=== PATIENT | male | born 1955 | race African-American/Black ===

== ENCOUNTER 2016-12-02 13:12 | Inpatient (IN) | payer MEDICARE, OTHER ==
[~2016-12-02] VITALS: Ht 177.8 cm; Wt 69.1 kg
[~2016-12-02 13:12] MED LIST: ACET500T68 PO; ASPI81TA50 PO; BENZ1TAB5 PO; Bisacodyl PR; CALC-425 PO; CARBAMIDE PEROXIDE 6.5%; DIPH25CA3 PO; DIVA250T PO; DIVA500T2 PO; Doxycycline Hyclate PO; FAMO-63 PO; FERR-26 PO; GABA600T2 PO; HYDROCORTISONE 1%; IBUP-1027 PO; IBUP200T77 PO; LOPE2CAP PO; MAGNESIUM HYDROXIDE; MELA3TAB2 PO; METF500T9 PO; METO25TA9 PO; METR500T PO; MULT1TAB69 PO; POLY17PO3 PO; PSEU30TA24 PO; QUET100T PO; QUET300T PO; SENN8.6T6 PO; SIMV40TA3 PO; TOLNAFTATE 1%; ZIPR80CA3 PO; [UNRECOGNIZED DRUG - CODE] PO; [UNRECOGNIZED DRUG - OTHER]; [UNRECOGNIZED DRUG - OTHER]
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
[2016-12-02] MEDS ORDERED: IV NORMAL SALINE 1000ML BAG 1,000 ML IV ONE (14:00)
[2016-12-02 14:13] LABS: BASO % 0 % (0-3); EOS % 0 % (0-3); HEMATOCRIT 33.4 % (39.0-53.0); HEMOGLOBIN 11.3 g/dL (13.0-17.5); LYMPH # 1.3 x10^3/uL (1.0-4.8); LYMPH % 14 % (24-48); MEAN CORPUSCULAR HEMOGLOBIN 31 pg (25-35); MEAN CORPUSCULAR HGB CONC 34 g/dL (31-37); MEAN CORPUSCULAR VOLUME 91 fL (79-100); MONO % 17 % (0-9); NEUT % 69 % (31-73); PLATELET COUNT 243 x10^3/uL (140-400); RED BLOOD COUNT 3.68 x10^6/uL (4.30-5.70); RED CELL DISTRIBUTION WIDTH 13.6 % (11.5-14.5); WHITE BLOOD COUNT 9.2 x10^3/uL (4.0-11.0)
[2016-12-02 14:15] LABS: CALCIUM 8.5 mg/dL (8.5-10.1); CREATININE 0.9 mg/dL (0.7-1.3); GFR 104.2; POTASSIUM 3.5 mmol/L (3.5-5.1)
[2016-12-02 14:21] LABS: ALBUMIN 2.5 g/dL (3.4-5.0); ALBUMIN/GLOBULIN RATIO 0.6 (1.0-1.7); TOTAL BILIRUBIN 0.7 mg/dL (0.2-1.0); TOTAL PROTEIN 6.8 g/dL (6.4-8.2)
[2016-12-02] MEDS ORDERED: CONTRAST GIVEN MC PRN (15:15)
[2016-12-02] MEDS ORDERED: IOHEXOL 300 MG/ML 75 ML VIAL IV ONE (15:15)
--- NOTE | 2016-12-02 16:09 | RAD ---
Indication abdominal pain. No bowel movement or urine output for 2 days. Axial images through the abdomen and pelvis were obtained. 75 cc of Omnipaque 300 was administered intravenously. Note is made of a previous examination July 09, 2015. There is a trace amount of bilateral pleural fluid. There is volume loss in both lung bases right somewhat greater than left. The volume loss at the lung bases is similar to the previous examination and may reflect atelectasis or scar. Underlying pneumonia is not entirely excluded. The liver and spleen appear unremarkable. The gallbladder is mildly distended but otherwise unremarkable. No pancreatic adrenal or renal pathology is seen. An acute finding in the abdomen is not apparent. In the pelvis a focal mass or inflammatory process is not seen. The prostate is moderately enlarged. The urinary bladder is minimally distended. Similar to the previous exam there are fluid-filled and moderately distended loops of small bowel. The degree of dilatation appears slightly less than previously. The findings are likely chronic. Aerophagia or ileus would be leading considerations. A moderate amount of stool is noted in the large bowel. IMPRESSION: Distended loops predominantly of small bowel similar to the examination July 09, 2015. Findings are likely chronic and reflective of either ileus or perhaps aerophagia. A definite acute finding in the abdomen or pelvis is not seen. Moderate enlargement of the prostate. Tiny pleural effusions. Volume loss at the lung bases likely reflects atelectasis or scar. Underlying pneumonia is not entirely excluded.
[2016-12-02 16:40] LABS: BILIRUBIN,URINE SMALL (NEG); GLUCOSE,URINE NEGATIVE (NEG); NITRITE,URINE NEGATIVE (NEG); PROTEIN,URINE 30 mg/dL (NEG-TRACE)
[2016-12-02 17:04] LABS: BACTERIA,URINE FEW /HPF (0-FEW); RBC,URINE 0 /HPF (0-2); SQUAMOUS EPITHELIAL CELL,UR OCC /LPF
[2016-12-02] MEDS ORDERED: IV DEXTROSE 5 %-0.45 % NACL 1,000 ML IV ONE (17:30)
[2016-12-02] MEDS ORDERED: LUBI8CAP4 PO (20:24)
[2016-12-02] MEDS ORDERED: ZIPR40CA2 PO (20:24)
[2016-12-02] MEDS ORDERED: QUET300T5 PO (20:24)
[2016-12-02] MEDS ORDERED: METF500T4 PO (20:24)
[2016-12-02] MEDS ORDERED: MELA3TAB2 PO (20:24)
[2016-12-02] MEDS ORDERED: GABA600T2 PO (20:24)
[2016-12-02] MEDS ORDERED: SENN8.6T99 PO (20:26)
[2016-12-02 20:30] VITALS: BP 123/68
[2016-12-02] MEDS ORDERED: NON FORMULARY ITEM (Melatonin 1 TAB) PO SCH (21:00)
[2016-12-02] MEDS: FAMOTIDINE 20 MG TABLET. PO SCH (22:55)
[2016-12-02] MEDS: GABAPENTIN 300 MG CAPSULE. PO SCH (22:55)
[2016-12-02] MEDS: DIVALPROEX DELAYED RELEASE 500 MG TABLET.DR. PO SCH (22:55)
[2016-12-02] MEDS: BENZTROPINE MESYLATE 1 MG TABLET. PO SCH (22:55)
[2016-12-02] MEDS: LUBIPROSTONE 8 MCG CAPSULE PO SCH (22:56)
[2016-12-02] MEDS: ZIPRASIDONE 20 MG CAPSULE PO SCH (22:56)
[2016-12-02] MEDS: QUEtiapine 100 MG TABLET. PO SCH (22:56)
[2016-12-02] MEDS: POLYETHYLENE GLYCOL 3350 17 GM PACKET. PO SCH (22:57)
[2016-12-02 23:00] VITALS: BP 113/63
[2016-12-02 23:47] VITALS: BP 123/68
[2016-12-03 02:49] VITALS: BP 119/65
[2016-12-03 05:12] LABS: BASO % 0 % (0-3); EOS % 0 % (0-3); HEMOGLOBIN 8.9 g/dL (13.0-17.5); LYMPH # 1.4 x10^3/uL (1.0-4.8); LYMPH % 21 % (24-48); MEAN CORPUSCULAR HEMOGLOBIN 31 pg (25-35); MEAN CORPUSCULAR HGB CONC 34 g/dL (31-37); MEAN CORPUSCULAR VOLUME 91 fL (79-100); MONO % 12 % (0-9); NEUT % 67 % (31-73); PLATELET COUNT 193 x10^3/uL (140-400); RED BLOOD COUNT 2.86 x10^6/uL (4.30-5.70); RED CELL DISTRIBUTION WIDTH 13.7 % (11.5-14.5); WHITE BLOOD COUNT 6.7 x10^3/uL (4.0-11.0)
[2016-12-03 05:33] LABS: CALCIUM 7.6 mg/dL (8.5-10.1); CREATININE 0.9 mg/dL (0.7-1.3); GFR 104.2; POTASSIUM 3.2 mmol/L (3.5-5.1)
[2016-12-03 07:00] VITALS: BP 123/74
[2016-12-03 07:06] LABS: PLT ESTIMATE ADEQUATE (ADEQUATE)
[2016-12-03] MEDS: POLYETHYLENE GLYCOL 3350 17 GM PACKET. PO SCH ×3 (08:47→21:15)
[2016-12-03] MEDS: ZIPRASIDONE 20 MG CAPSULE PO SCH ×2 (08:48→21:14)
[2016-12-03] MEDS: GABAPENTIN 300 MG CAPSULE. PO SCH ×3 (08:49→21:15)
[2016-12-03] MEDS: QUEtiapine 100 MG TABLET. PO SCH ×2 (08:49→21:14)
[2016-12-03] MEDS: DIVALPROEX DELAYED RELEASE 500 MG TABLET.DR. PO SCH ×2 (08:50→21:14)
[2016-12-03] MEDS: METOPROLOL SUCC 24HR ER 25 MG TAB.ER.24H. PO SCH (08:50)
[2016-12-03] MEDS: BENZTROPINE MESYLATE 1 MG TABLET. PO SCH ×3 (08:50→21:14)
[2016-12-03] MEDS: ASPIRIN ENTERIC COATED 81 MG TABLET.DR. PO SCH (08:50)
[2016-12-03] MEDS: SIMVASTATIN 40 MG TABLET. PO SCH (08:50)
[2016-12-03] MEDS: LUBIPROSTONE 8 MCG CAPSULE PO SCH ×2 (09:02→21:14)
[2016-12-03] MEDS ORDERED: BISACODYL 5 MG TABLET.DR. PO ONE (09:30)
[2016-12-03] MEDS ORDERED: POLYETHYLENE GLYCOL 3350 238 GM POWDER PO ONE (09:30)
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
[2016-12-03 10:48] VITALS: BP 112/66
[2016-12-03] MEDS: POTASSIUM CHLORIDE 10MEQ 100 ML IV SCH ×4 (11:32→16:14)
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
[2016-12-03 14:50] VITALS: BP 133/80
[2016-12-03] MEDS: DIVALPROEX EXTENDED RELEASE 250 MG TAB.ER.24H. PO SCH (15:03)
[2016-12-03 20:32] VITALS: BP 126/74
[2016-12-03] MEDS: SENNOSIDES 8.6 MG TABLET PO SCH (21:14)
[2016-12-03] MEDS: FAMOTIDINE 20 MG TABLET. PO SCH (21:14)
[2016-12-03 23:00] VITALS: BP 108/71
[2016-12-04 07:34] VITALS: BP 124/76
[2016-12-04] MEDS: ZIPRASIDONE 20 MG CAPSULE PO SCH ×2 (09:59→22:01)
[2016-12-04] MEDS: GABAPENTIN 300 MG CAPSULE. PO SCH ×3 (10:00→22:01)
[2016-12-04] MEDS: DIVALPROEX DELAYED RELEASE 500 MG TABLET.DR. PO SCH ×2 (10:00→22:01)
[2016-12-04] MEDS: LUBIPROSTONE 8 MCG CAPSULE PO SCH ×2 (10:01→18:01)
[2016-12-04] MEDS: QUEtiapine 100 MG TABLET. PO SCH ×2 (10:01→22:02)
[2016-12-04] MEDS: POLYETHYLENE GLYCOL 3350 17 GM PACKET. PO SCH ×3 (10:01→22:01)
[2016-12-04] MEDS: SIMVASTATIN 40 MG TABLET. PO SCH (10:01)
[2016-12-04] MEDS: BENZTROPINE MESYLATE 1 MG TABLET. PO SCH ×3 (10:01→22:01)
[2016-12-04] MEDS: ASPIRIN ENTERIC COATED 81 MG TABLET.DR. PO SCH (10:01)
[2016-12-04] MEDS: METOPROLOL SUCC 24HR ER 25 MG TAB.ER.24H. PO SCH (10:02)
[2016-12-04 11:00] VITALS: BP 138/72
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
--- NOTE | 2016-12-04 13:19 | PDOC ---
Subjective: Subjective: Asks for pancakes. Objective: Objective: Per RN - 3 watery stools. Vital Signs: Vital Signs Date Time Temp Pulse Resp B/P (MAP) Pulse Ox O2 Delivery O2 Flow Rate FiO2 12/04/16 11:00 97.2 68 22 138/72 (94) 97 Room Air 97.2 PE: GEN: NAD, up to chair LUNGS: clear HEART: RRR ABD: ?BS - quiet if any (similar to yesterday), still distended, seems non- tender ---> says "yep!" when asks if palpation of abd, arm, and leg causes pain NEURO/PSYCH: awake/alert A/P: Chronic abd distention, constipation, dilated small bowel on imaging -EGD and colonoscopy in 2007 unremarkable Cognitive impairment -- Unreliable historian. Exam unchanged, now having watery stools. Continue Miralax, will increase Amitiza dose. Try full liquids, will review dietary recs w/ Dr. Vazquez. D/w RN. ?surg consult ELVIS VAZQUEZ Dec 04, 2016 13:19
[2016-12-04 14:17] LABS: ALBUMIN 2.7 g/dL (3.4-5.0); ALBUMIN/GLOBULIN RATIO 0.6 (1.0-1.7); CALCIUM 8.4 mg/dL (8.5-10.1); GFR 92.2; POTASSIUM 3.5 mmol/L (3.5-5.1); TOTAL BILIRUBIN 0.3 mg/dL (0.2-1.0)
[2016-12-04 15:00] VITALS: BP 126/74
[2016-12-04] MEDS ORDERED: LUBIPROSTONE 8 MCG CAPSULE PO SCH (17:00)
[2016-12-04] MEDS: DIVALPROEX EXTENDED RELEASE 250 MG TAB.ER.24H. PO SCH (18:02)
[2016-12-04 19:59] VITALS: BP 112/66
[2016-12-04] MEDS: SENNOSIDES 8.6 MG TABLET PO SCH (22:01)
[2016-12-04] MEDS: FAMOTIDINE 20 MG TABLET. PO SCH (22:01)
[2016-12-04 23:35] VITALS: BP 123/74
[2016-12-05 03:59] VITALS: BP_SYST 111; BP_SYST 146; BP_DIAS 70; BP_DIAS 91
[2016-12-05 05:29] LABS: BASO % 0 % (0-3); EOS % 0 % (0-3); HEMATOCRIT 29.5 % (39.0-53.0); HEMOGLOBIN 9.8 g/dL (13.0-17.5); LYMPH # 1.5 x10^3/uL (1.0-4.8); LYMPH % 13 % (24-48); MEAN CORPUSCULAR HEMOGLOBIN 31 pg (25-35); MEAN CORPUSCULAR HGB CONC 33 g/dL (31-37); MEAN CORPUSCULAR VOLUME 93 fL (79-100); MONO % 6 % (0-9); NEUT % 81 % (31-73); PLATELET COUNT 228 x10^3/uL (140-400); RED BLOOD COUNT 3.18 x10^6/uL (4.30-5.70); RED CELL DISTRIBUTION WIDTH 13.8 % (11.5-14.5); WHITE BLOOD COUNT 11.6 x10^3/uL (4.0-11.0)
[2016-12-05 07:00] VITALS: BP 132/70
[2016-12-05] MEDS ORDERED: metFORMIN 500 MG TABLET PO SCH (08:00)
[2016-12-05] MEDS: BENZTROPINE MESYLATE 1 MG TABLET. PO SCH ×2 (08:32→13:48)
[2016-12-05] MEDS: SIMVASTATIN 40 MG TABLET. PO SCH (08:32)
[2016-12-05] MEDS: DIVALPROEX DELAYED RELEASE 500 MG TABLET.DR. PO SCH (08:32)
[2016-12-05] MEDS: ASPIRIN ENTERIC COATED 81 MG TABLET.DR. PO SCH (08:32)
[2016-12-05] MEDS: GABAPENTIN 300 MG CAPSULE. PO SCH ×2 (08:32→13:48)
[2016-12-05] MEDS: METOPROLOL SUCC 24HR ER 25 MG TAB.ER.24H. PO SCH (08:33)
[2016-12-05] MEDS: ZIPRASIDONE 20 MG CAPSULE PO SCH (08:33)
[2016-12-05] MEDS: POLYETHYLENE GLYCOL 3350 17 GM PACKET. PO SCH ×2 (08:33→13:46)
[2016-12-05] MEDS: QUEtiapine 100 MG TABLET. PO SCH (09:22)
[2016-12-05] MEDS: LUBIPROSTONE 8 MCG CAPSULE PO SCH (09:22)
[2016-12-05 11:00] VITALS: BP 124/70
[2016-12-05] MEDS ORDERED: LACTOBACILLUS ACIDOPH & BULGAR 1 TABLET. PO SCH (12:00)
[2016-12-05] MEDS ORDERED: ACID1TAB14 PO (12:00)
== END 2016-12-05 14:45 | disposition home or self-care (01) | DRG 388 ==
LOC: ER 13:12 → 5 SOUTH 17:30
PROVIDERS: ADMIT Internal Medicine; ATTEND Internal Medicine
DX: K56.7 Ileus, unspecified (principal); E43 Unspecified severe protein-calorie malnutrition; D64.9 Anemia, unspecified; E78.5 Hyperlipidemia, unspecified; K59.00 Constipation, unspecified; G31.84 Mild cognitive impairment of uncertain or unknown etiology; E11.42 Type 2 diabetes mellitus with diabetic polyneuropathy; E78.00 Pure hypercholesterolemia, unspecified; F20.9 Schizophrenia, unspecified; I10 Essential (primary) hypertension; N40.0 Benign prostatic hyperplasia without lower urinary tract symptoms; Z82.49 Family history of ischemic heart disease and other diseases of the circulatory system
CPT/HCPCS: 36415; 74177; 80048; 80053; 81001; 83690; 85007; 85027; 87086; 96360; 96361; J3480; J7030; Q9967; 99285-25

== ENCOUNTER → 2018-12-20 | Outpatient (CLI) | payer MEDICARE, MEDICAID ==
[2018-03-17 15:00] VITALS: BP 92/50
[~2018-12-20] MED LIST changes: +ACID1TAB14 PO; +CEFP100T PO; -FERR-26 PO; +FERR325T14 PO; -GABA600T2 PO; +GABA600T7 PO; +LUBI8CAP4 PO; +METF500T16 PO; +METO-239 PO; +METO25TA4 PO; -METO25TA9 PO; +PEG4000S8 PO; +POLY17PO28 PO; -POLY17PO3 PO; +QUET300T5 PO; +SENN-121 PO; +SENN-87 PO; -SENN8.6T6 PO; +SENN8.6T99 PO; +ZIPR40CA2 PO
--- NOTE | 2018-12-20 17:17 | KCIC ---
Examination: ABDOMEN SUPINE UPRIGHT History: Constipation Comparison/Correlation: 03/11/2018 CT abdomen without contrast Findings: Supine and upright views of the abdomen were obtained. Gaseous distention of colon within the left abdomen is seen. The colon and rectum otherwise the large quantity of stool within it. No suspicious abdominal calcifications. No bowel obstruction. Visualized lung bases are clear. Impression: Large quantity of stool in the colon. Electronically signed by: Austin Mitchell MD (12/20/2018 5:14 PM) [id number]
== END | disposition home or self-care (01) ==
LOC: KCIC 13:12
PROVIDERS: ATTEND Family Medicine
DX: K59.00 Constipation, unspecified (principal); K63.89 Other specified diseases of intestine
CPT/HCPCS: 74021

== ENCOUNTER 2018-12-22 20:07 | Emergency (ER) | payer MEDICARE, MEDICAID ==
[~2018-12-22] VITALS: Ht 182.9 cm; Wt 65.3 kg
[~2018-12-22 20:07] MED LIST changes: -PEG4000S8 PO; -SENN-121 PO
[2018-12-22 20:20] VITALS: BP 119/67
[2018-12-22] MEDS ORDERED: SENN-121 PO (21:01)
[2018-12-22] MEDS ORDERED: PEG4000S8 PO (21:01)
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
== END 2018-12-22 21:45 | disposition home or self-care (01) ==
LOC: ER 20:07
DX: K59.00 Constipation, unspecified (principal); E11.40 Type 2 diabetes mellitus with diabetic neuropathy, unspecified; E78.00 Pure hypercholesterolemia, unspecified; I10 Essential (primary) hypertension; F20.9 Schizophrenia, unspecified
CPT/HCPCS: 99284

== ENCOUNTER 2019-02-19 19:17 | Emergency (ER) | payer MEDICARE, MEDICAID ==
[~2019-02-19] VITALS: Ht 182.9 cm; Wt 59.0 kg
[~2019-02-19 19:17] MED LIST changes: +PEG4000S8 PO; +SENN-121 PO
[2019-02-19] MEDS ORDERED: IV NORMAL SALINE 1000ML BAG 1,000 ML IV ONE (19:30)
[2019-02-19 19:33] LABS: BASO % 0 % (0-3); EOS % 1 % (0-3); HEMOGLOBIN 11.2 g/dL (13.0-17.5); LYMPH # 1.3 x10^3/uL (1.0-4.8); LYMPH % 36 % (24-48); MEAN CORPUSCULAR HEMOGLOBIN 31 pg (25-35); MEAN CORPUSCULAR HGB CONC 34 g/dL (31-37); MEAN CORPUSCULAR VOLUME 92 fL (79-100); MONO # 0.3 x10^3/uL (0.0-1.1); MONO % 9 % (0-9); NEUT # 1.9 x10^3/uL (1.8-7.7); NEUT % 54 % (31-73); PLATELET COUNT 141 x10^3/uL (140-400); RED BLOOD COUNT 3.56 x10^6/uL (4.30-5.70); RED CELL DISTRIBUTION WIDTH 13.3 % (11.5-14.5); WHITE BLOOD COUNT 3.5 x10^3/uL (4.0-11.0)
[2019-02-19 19:42] LABS: PROTHROMBIN TIME PATIENT 14.2 SEC (11.7-14.0)
[2019-02-19 19:49] LABS: CALCIUM 8.5 mg/dL (8.5-10.1); GFR 91.6; POTASSIUM 3.6 mmol/L (3.5-5.1)
[2019-02-19 19:55] LABS: ALBUMIN 3.1 g/dL (3.4-5.0); ALBUMIN/GLOBULIN RATIO 0.9 (1.0-1.7); MAGNESIUM 1.7 mg/dL (1.8-2.4); TOTAL BILIRUBIN 0.4 mg/dL (0.2-1.0); TOTAL PROTEIN 6.6 g/dL (6.4-8.2)
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
[2019-02-19 20:26] LABS: CREATINE KINASE 44 U/L (39-308)
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
[2019-02-19 20:38] LABS: VAL ACID 49 mcg/mL (50-100)
[2019-02-19 21:13] LABS: BILIRUBIN,URINE NEGATIVE (NEG); CLARITY,URINE CLEAR; COLOR,URINE YELLOW; NITRITE,URINE NEGATIVE (NEG); PROTEIN,URINE NEGATIVE (NEG-TRACE)
--- NOTE | 2019-02-19 21:19 | RAD ---
EXAM: CHEST 2 VIEWS. HISTORY: Altered mental status. COMPARISON: 03/11/2018. FINDINGS: Frontal and lateral views of the chest are obtained. There is a mild airspace opacity in the costophrenic angles on the lateral projection, likely on the right on the frontal projection. There is no pneumothorax or pleural effusion. The heart is not enlarged. IMPRESSION: 1. Correlate for mild right lower lobe pneumonia. Electronically signed by: Benjamín Wolf MD (02/19/2019 9:16 PM) [facility]
[2019-02-19 21:20] LABS: AMPHETAMINE/METHAMPHETAMINE NEG (NEG); BACTERIA,URINE 0 /HPF (0-FEW); BARBITURATES NEG (NEG); BENZODIAZEPINES NEG (NEG); CANNABINOIDS NEG (NEG); COCAINE NEG (NEG); METHADONE NEG (NEG); OPIATES NEG (NEG); PHENCYCLIDINE NEG (NEG); SQUAMOUS EPITHELIAL CELL,UR OCC /LPF
[2019-02-19] MEDS ORDERED: MAGNESIUM CHLORIDE ER 64 MG TABLET.ER PO ONE (21:30)
[2019-02-19] MEDS ORDERED: DIVALPROEX DELAYED RELEASE 500 MG TABLET.DR. PO ONE (21:45)
[2019-02-19 22:11] VITALS: BP 116/54
--- NOTE | 2019-02-20 07:34 | EKG ---
[facility] [address] [place] [address] Test Date: 2019-02-19 Test Time: 19:44:42 Pat Name: FRIEDA HANKINS Department: Room: Gender: M Senior Engineering Associate: : 1955 Requested By: FRIEDA BLUM Order Number: [id number] Reading MD: Jarret Chavez MD Measurements Intervals [place] Rate: 100 P: 72 [place]: 162 QRS: 74 QRSD: 72 T: 66 QT: 348 QTc: 451 Interpretive Statements SINUS RHYTHM Electronically Signed On 02-20-2019 18:14:21 CDT by Jarret Chavez MD
== END 2019-02-19 21:50 | disposition home or self-care (01) ==
LOC: ER 19:17
DX: R41.82 Altered mental status, unspecified (principal); E83.42 Hypomagnesemia; R89.2 Abnormal level of other drugs, medicaments and biological substances in specimens from other organs, systems and tissues; K21.9 Gastro-esophageal reflux disease without esophagitis; E78.00 Pure hypercholesterolemia, unspecified
CPT/HCPCS: 36415; 70450; 71046; 72125; 80053; 80164; 80307; 81001; 82140; 82553; 83605; 83735; 84484; 85025; 85610; 85730; 93005; 96360; 99285; J7030

== ENCOUNTER 2019-11-23 08:56 | Inpatient (IN) | payer MEDICARE, MEDICAID ==
[~2019-11-23] VITALS: Ht 172.7 cm; Wt 133.0 kg
[~2019-11-23 08:56] MED LIST changes: +BISA-42 PO; +DIPH25CA23 PO; -DIPH25CA3 PO; +DIPH25TA24 PO; +DIVA-53 PO; +GUAI100L34 PO; +HYDR-2761 PO; +LACT20SO PO; -MELA3TAB2 PO; +MELA3TAB4 PO; +METF-658 PO; -METF500T9 PO; +SENN8.6T11 PO; +SIMV40TA18 PO; -SIMV40TA3 PO
[2019-11-23 09:59] LABS: BASO % 0 % (0-3); EOS % 0 % (0-3); HEMATOCRIT 34.3 % (39.0-53.0); HEMOGLOBIN 11.6 g/dL (13.0-17.5); LYMPH # 0.5 x10^3/uL (1.0-4.8); LYMPH % 9 % (24-48); MEAN CORPUSCULAR HEMOGLOBIN 32 pg (25-35); MEAN CORPUSCULAR HGB CONC 34 g/dL (31-37); MEAN CORPUSCULAR VOLUME 94 fL (79-100); MONO # 1.3 x10^3/uL (0.0-1.1); MONO % 23 % (0-9); NEUT # 3.9 x10^3/uL (1.8-7.7); NEUT % 68 % (31-73); PLATELET COUNT 173 x10^3/uL (140-400); RED BLOOD COUNT 3.65 x10^6/uL (4.30-5.70); RED CELL DISTRIBUTION WIDTH 13.6 % (11.5-14.5); WHITE BLOOD COUNT 5.7 x10^3/uL (4.0-11.0)
[2019-11-23] MEDS ORDERED: IV NORMAL SALINE 1000ML BAG 1,000 ML IV ONE ×2 (10:00→13:00)
[2019-11-23] MEDS ORDERED: ONDANSETRON PF 4 MG/2 ML VIAL. IVP ONE ×2 (10:00→13:30)
[2019-11-23 10:06] LABS: CALCIUM 8.3 mg/dL (8.5-10.1); CREATININE 1.3 mg/dL (0.7-1.3); GFR 67.5; POTASSIUM 3.8 mmol/L (3.5-5.1)
[2019-11-23 10:12] LABS: ALBUMIN/GLOBULIN RATIO 0.8 (1.0-1.7); TOTAL BILIRUBIN 0.3 mg/dL (0.2-1.0)
[2019-11-23 10:18] LABS: BILIRUBIN,URINE SMALL (NEG); CLARITY,URINE CLEAR; COLOR,URINE AMBER; NITRITE,URINE NEGATIVE (NEG); PH,URINE 5.5 (<5.0-8.0); PROTEIN,URINE NEGATIVE (NEG-TRACE)
[2019-11-23 10:33] LABS: BACTERIA,URINE FEW /HPF (0-FEW); RBC,URINE OCC /HPF (0-2); SQUAMOUS EPITHELIAL CELL,UR FEW /LPF; WBC,URINE OCC /HPF (0-4)
--- NOTE | 2019-11-23 10:50 | EKG ---
[facility] [address] [place] [address] Test Date: 2019-11-23 Test Time: 09:16:42 Pat Name: FRIEDA HANKINS Department: Room: Gender: M Cdl Truck Driver: : 1955 Requested By: KONSTANTIN RUBIO Order Number: [id number] Reading MD: Jarret Chavez MD Measurements Intervals [place] Rate: 117 P: 0 SD: 116 QRS: 51 QRSD: 76 T: 53 QT: 318 QTc: 448 Interpretive Statements SINUS TACHYCARDIA Electronically Signed On 11-23-2019 15:00:57 CDT by Jarret Chavez MD
--- NOTE | 2019-11-23 11:02 | PHYS DOC ---
Past Medical History Past Medical History: GERD, High Cholesterol, Seizure, Other Additional Past Medical Histor: DEVELOPMENTAL DELAY Past Surgical History: No Surgical History Smoking Status: Never Smoker Alcohol Use: None Drug Use: None Adult General Chief Complaint Chief Complaint: MULTIPLE COMPLAINTS [facility] HPI Patient is a 64 year old -[place] male half-way member with history of cognitive impairment and chronic constipation who presents with reported fever of 101.5 yesterday, nausea vomiting and diarrhea today. Patient denies abdominal pain. Last date breakfast this morning. Patient with stented lower abdomen with minimal tenderness. No fever chills or sweats. Denies dizziness lightheadedness, cough, sore throat, chest pain, shortness of breath. No urinary frequency urgency or dysuria. No leg pain or swelling. No other acute symptoms or complaints. No prior abdominal surgeries. History obtained from the patient and is limited due to intellectual disability. [] Review of Systems Review of Systems Review of symptoms as per HPI. All other review of symptoms are negative. All other systems were reviewed and found to be within normal limits, except as documented in this note. Current Medications Current Medications Current Medications Medications (Trade) Dose Ordered Sig/Ric Start Time Stop Time Status Last Admin Dose Admin Iohexol (Omnipaque 300 Mg/ml) 75 ml 1X ONCE 11/23/19 11:30 11/23/19 11:31 DC 11/23/19 11:30 75 ML Ondansetron HCl (Zofran) 8 mg 1X ONCE 11/23/19 10:00 11/23/19 10:01 DC 11/23/19 10:04 8 MG Sodium Chloride 1,000 ml @ 1,000 mls/hr 1X ONCE 11/23/19 13:00 11/23/19 13:59 11/23/19 13:20 1,000 MLS/HR Allergies Allergies Allergies Coded Allergies Type Severity Reaction Last Updated Verified No Known Drug Allergies 03/27/14 No Physical Exam Physical Exam Constitutional: Well developed, well nourished, no acute distress, non-toxic appearance. [] HENT: Normocephalic, atraumatic, bilateral external ears normal, oropharynx moist, no oral exudates, nose normal. [] Eyes: PERRLA, EOMI, conjunctiva normal, no discharge. [] Neck: Normal range of motion, no tenderness, supple, no stridor. [] Cardiovascular:Heart rate regular rhythm, no murmur [] Lungs & Thorax: Bilateral breath sounds clear to auscultation [] Abdomen: Bowel sounds normal, soft, distended, minimal tenderness.. [] Skin: Warm, dry, no erythema, no rash. [] Back: No tenderness, no CVA tenderness. [] Extremities: No tenderness, no cyanosis, no clubbing, ROM intact, no edema. [] Neurologic: Alert and oriented X person, normal motor function, normal sensory function, no focal deficits noted. [] Psychologic: Affect normal, judgement normal, mood normal. [] Current Patient Data Vital Signs Vital Signs Date Time Temp Pulse Resp B/P (MAP) Pulse Ox O2 Delivery O2 Flow Rate FiO2 11/23/19 11:37 114 16 134/82 (99) 97 Nasal Cannula 1.0 11/23/19 09:00 97.6 97.6 Lab Values Laboratory Tests Test 11/23/19 09:40 11/23/19 10:05 White Blood Count 5.7 x10^3/uL (4.0-11.0) Red Blood Count 3.65 x10^6/uL (4.30-5.70) L Hemoglobin 11.6 g/dL (13.0-17.5) L Hematocrit 34.3 % (39.0-53.0) L Mean Corpuscular Volume 94 fL (79-100) Mean Corpuscular Hemoglobin 32 pg (25-35) Mean Corpuscular Hemoglobin Concent 34 g/dL (31-37) Red Cell Distribution Width 13.6 % (11.5-14.5) Platelet Count 173 x10^3/uL (140-400) Neutrophils (%) (Auto) 68 % (31-73) Lymphocytes (%) (Auto) 9 % (24-48) L Monocytes (%) (Auto) 23 % (0-9) H Eosinophils (%) (Auto) 0 % (0-3) Basophils (%) (Auto) 0 % (0-3) Neutrophils # (Auto) 3.9 x10^3/uL (1.8-7.7) Lymphocytes # (Auto) 0.5 x10^3/uL (1.0-4.8) L Monocytes # (Auto) 1.3 x10^3/uL (0.0-1.1) H Eosinophils # (Auto) 0.0 x10^3/uL (0.0-0.7) Basophils # (Auto) 0.0 x10^3/uL (0.0-0.2) Segmented Neutrophils % 42 % (35-66) Band Neutrophils % 29 % (0-9) H Lymphocytes % 21 % (24-48) L Monocytes % 8 % (0-10) Platelet Estimate Adequate (ADEQUATE) Sodium Level 145 mmol/L (136-145) Potassium Level 3.8 mmol/L (3.5-5.1) Chloride Level 105 mmol/L (98-107) Carbon Dioxide Level 30 mmol/L (21-32) Anion Gap 10 (6-14) Blood Urea Nitrogen 27 mg/dL (8-26) H Creatinine 1.3 mg/dL (0.7-1.3) Estimated GFR (Cockcroft-Gault) 67.5 BUN/Creatinine Ratio 21 (6-20) H Glucose Level 124 mg/dL (70-99) H Calcium Level 8.3 mg/dL (8.5-10.1) L Total Bilirubin 0.3 mg/dL (0.2-1.0) Aspartate Amino Transferase (AST) 11 U/L (15-37) L Alanine Aminotransferase (ALT) 14 U/L (16-63) L Alkaline Phosphatase 76 U/L (46-116) Total Protein 7.0 g/dL (6.4-8.2) Albumin 3.0 g/dL (3.4-5.0) L Albumin/Globulin Ratio 0.8 (1.0-1.7) L Lipase 23 U/L (73-393) L Urine Collection Type Unknown Urine Color Gricelda Urine Clarity Clear Urine pH 5.5 (<5.0-8.0) Urine Specific [place] >=1.030 (1.000-1.030) Urine Protein Negative mg/dL (NEG-TRACE) Urine Glucose (UA) Negative mg/dL (NEG) Urine Ketones (Stick) Trace mg/dL (NEG) Urine Blood Trace (NEG) Urine Nitrite Negative (NEG) Urine Bilirubin Small (NEG) Urine Urobilinogen Dipstick 1.0 mg/dL (0.2 mg/dL) Urine Leukocyte Esterase Negative (NEG) Urine RBC Occ /HPF (0-2) Urine WBC Occ /HPF (0-4) Urine Squamous Epithelial Cells Few /LPF Urine Bacteria Few /HPF (0-FEW) Urine Mucus Marked /LPF Laboratory Tests 11/23/19 09:40 Laboratory Tests 11/23/19 09:40 EKG EKG [] Radiology/Procedures Radiology/Procedures [CT abdomen pelvis: Ileus versus distal bowel obstruction, pleural effusion versus infiltrate, sclerotic pelvic lesion per radiology report] Course & Med Decision Making Course & Med Decision Making Pertinent Labs and Imaging studies reviewed. (See chart for details) [Nondescript abdominal exam with chronic findings on CT versus possible ileus. Pain nausea medication given in the ED. Basic labs performed and reassuring. Will admit to the hospitalist service with GI consult.] Dragon Disclaimer Dragon Disclaimer This electronic medical record was generated, in whole or in part, using a voice recognition dictation system. Departure Departure Impression: Primary Impression: Ileus Additional Impression: Nausea & vomiting Disposition: ADMITTED INPATIENT Condition: STABLE Referrals: FAHAD TINAJERO MD (PCP) Problem Qualifiers KONSTANTIN RUBIO DO November 23, 2019 11:02
[2019-11-23 11:30] LABS: % BANDS 29 % (0-9); % LYMPHS 21 % (24-48); % MONOS 8 % (0-10); % SEGS 42 % (35-66); PLT ESTIMATE ADEQUATE (ADEQUATE)
[2019-11-23] MEDS ORDERED: IOHEXOL 300 MG/ML 100ML VIAL. IV ONE (11:30)
--- NOTE | 2019-11-23 12:34 | RAD ---
Exam: CT abdomen/pelvis with intravenous contrast Indication: Abdominal pain and vomiting, concern for bowel obstruction. Comparison: CT abdomen and pelvis 08/24/2019 and 03/11/2018 Technique: Helical CT imaging performed of the abdomen and pelvis after the intravenous administration of 75 mL Omnipaque 300 intravenous contrast. Sagittal and coronal reformats were obtained. One or more of the following individualized dose reduction techniques were utilized for this examination: 1. Automated exposure control 2. Adjustment of the mA and/or kV according to patient size 3. Use of iterative reconstruction technique. Findings: Lower chest: Increased tiny right pleural effusion and mild bibasilar opacities in the lung bases. The heart is normal in size. Liver: The liver is normal in size. No focal liver lesion. Hepatic, portal, superior mesenteric, and splenic veins are patent. Gallbladder/Biliary Tree: Unchanged mild distention of the gallbladder. No biliary duct dilatation. Pancreas: Unremarkable. Spleen: Normal. Adrenal Glands: Normal visualized. Kidneys/Ureters/Bladder: Kidneys are normal in size and enhance symmetrically. There is a 2 mm calculus in the inferior left renal pole. 6 mm hypodensity in the inferior right renal pole is too small to characterize. Probable left extrarenal pelvis. No hydronephrosis. Ureters are nondilated. Bladder is mildly distended without wall thickening. Reproductive Organs: Prostate gland is enlarged measuring 4.0 x 4.5 cm. Stomach, small bowel, and colon: The stomach is distended and filled with fluid and gas. There is marked, diffuse dilation of gas and fluid-filled small bowel and colon. Dilated small bowel measures up to 5.8 cm in diameter, increased from prior exam. Dilated colon measures up to 5.1 cm. There are some foci of nondependent gas along the bowel wall in the right hemicolon. This could be intraluminal gas, however pneumatosis is not entirely excluded. Evaluation is limited due to degree of dilated bowel. There is stool in the colon, greater on the left. Vasculature: Abdominal aorta and inferior vena cava are normal. Lymph Nodes: No obvious lymphadenopathy. Peritoneum and retroperitoneum: No definite free fluid or free air. Bones: Unchanged 2.1 x 1.0 ill-defined sclerotic lesion in the posterior left iliac bone. This is been stable since at least 03/11/2018 Miscellaneous: No abdominal wall or inguinal hernia. Impression: 1. Marked, diffuse dilation of small bowel and colon. This is similar to but increased compared to the prior exam with small bowel now measuring up to 5.8 cm in diameter. Findings may be due to distal bowel obstruction or ileus. In the right hemicolon, there are are some foci of nondependent gas along the bowel wall which could be intraluminal, however pneumatosis is not entirely excluded. Evaluation is limited due to the degree of bowel dilation. 2. Increased tiny right pleural effusion and mild bibasilar opacities, which could be atelectasis or infiltrates/aspiration. 3. Left nephrolithiasis. 4. Unchanged ill-defined 2.1 cm sclerotic lesion in the posterior left iliac bone, stable since 2018. Electronically signed by: Blanca Nava MD (11/23/2019 12:31 PM) [id number]
[2019-11-23] MEDS ORDERED: MORPHINE SULFATE 4 MG/ML VIAL. IV ONE (13:30)
[2019-11-23] MEDS ORDERED: ONDANSETRON PF 4 MG/2 ML VIAL. IV PRN (13:45)
--- NOTE | 2019-11-23 13:59 | HP ---
ADMIT DATE: 11/23/2019 CHIEF COMPLAINT: Nausea, vomiting, abdominal pain, abdominal distention, fever of 101.5. HISTORY OF PRESENT ILLNESS: The patient is a pleasant middle-aged -[place] male who lives in a long term. He is well known to my service. We had him in the hospital a few times in the past year. Basically, he presents with abdominal distention, some nausea, vomiting. He has had a low-grade fever. We did some imaging. He has massive air fluid levels in the gut. This is somewhat chronic for him, but the CAT scan is pretty impressive, he has got a lot of air within the bowel. It appears he could be obstructed but perhaps an ileus. He also has possible pneumonia on the bases of the lung that was incidentally picked up on the CAT scan. He is also hypoxic. I discussed the case with ER physician. We are going to admit the patient and consult GI and Pulmonary Medicine. PAST MEDICAL HISTORY: Cognitively challenged, GERD, chronic abdominal distension, hyperlipidemia, seizures, developmental delay. ALLERGIES: None. FAMILY HISTORY: Hypertension. SOCIAL HISTORY: Lives in a long term. Does not drink, smoke or take drugs. MEDICATIONS: Reviewed, please refer to the MRAD. REVIEW OF SYSTEMS: Unable to obtain. PHYSICAL EXAMINATION: VITALS: Within normal limits and are stable. GENERAL: No apparent distress. Alert and oriented. HEENT: Normal cephalic atraumatic, external auditory canals are patent EYES: Extraocular muscles are intact, pupils are equally round and reactive to light and accommodation MUSCULOSKELETAL: Well developed, well nourished, good range of motion ENDOCRINE: No thyromegaly was palpated LYMPHATICS: No cervical chain or axillary nodes were noted HEMATOPOIETIC: No bruising NECK: Supple, no JVD, no thyromegaly was noted. LUNGS: Clear to auscultation in all lung aparicio without rhonchi or wheezing. HEART: RRR, S1, S2 present. Peripheral pulses intact, no obvious murmurs were noted. ABDOMEN: He has diffuse abdominal distention. EXTREMITIES: Without any cyanosis, clubbing, or edema. Pedal pulses intact, Homans sign is negative. NEUROLOGIC: He is obtunded, weak. He does not talk much, maybe one word sentences. PSYCHIATRIC: Normal affect, normal mood. Stable. SKIN: No ulcerations or rashes, good skin turgor, no jaundice. VASCULAR: Good capillary refill, neurovascular bundle appears to be intact. ASSESSMENT AND PLAN: Ileus/small bowel obstruction and incidental finding of pneumonia, hypoxia. The patient will be admitted. We will consult GI. Consult Pulmonary. Home meds. Deep venous thrombosis prophylaxis. IV fluids, trend labs. Full code. PROGNOSIS: Guarded. TERA BOSTON DO DR: ADOLPH/amol JOB#: [id number] / [id number]
[2019-11-23] MEDS ORDERED: METHYLNALTREXONE 12 MG/0.6 ML VIAL. SQ ONE (14:15)
[2019-11-23] MEDS ORDERED: BISACODYL 10 MG SUPP.RECT. PR PRN (14:15)
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
[2019-11-23 15:00] VITALS: BP_SYST 130; BP_SYST 132; BP_DIAS 60; BP_DIAS 74
[2019-11-23] MEDS ORDERED: LUBI24CA7 PO (15:04)
[2019-11-23] MEDS: IV RINGERS,LACTATED 1000ML 1,000 ML IV SCH (15:40)
--- NOTE | 2019-11-23 16:33 | RAD ---
EXAM: Supine AP view of the abdomen DATE: 11/23/2019 3:54 PM INDICATION: Reason: check ng tube placement / Spl. Instructions: / History: COMPARISON: 11/23/2019 FINDINGS/ IMPRESSION: 1. NG tube tip terminates at the distal esophagus and can be advanced approximately 8 cm. 2. Diffusely dilated loops of small and large bowel are better assessed on recent CT. Findings of NG tube positioning discussed with patient's nurse at 11/23/2019 4:29 PM. FOR INTERNAL CODING PURPOSES RESULT CODE: Electronically signed by: Freddie Crenshaw MD (11/23/2019 4:30 PM) [id number]
--- NOTE | 2019-11-23 17:51 | RAD ---
KUB INDICATION: Reason: verify ng tube placement / Spl. Instructions: / History: . COMPARISON: 11/23/2019. FINDINGS: Enteric tube terminates in the stomach. Stable diffusely dilated bowel, as seen on recent CT. No free air. Limited view of the lower chest demonstrates no acute abnormality. No acute osseous abnormality. IMPRESSION: Stable diffusely dilated bowel. Enteric tube terminates in the stomach. Electronically signed by: Adarsh Duncan MD (11/23/2019 5:49 PM) [id number]
[2019-11-23 19:57] VITALS: BP 126/69
[2019-11-23] MEDS: PANTOPRAZOLE IV PUSH 40 MG VIAL. IVP SCH (21:14)
[2019-11-23 23:02] VITALS: BP 118/66
[2019-11-24] MEDS: IV RINGERS,LACTATED 1000ML 1,000 ML IV SCH ×3 (01:16→20:30)
[2019-11-24 03:26] VITALS: BP 125/64
[2019-11-24 04:30] LABS: BASO % 0 % (0-3); EOS % 1 % (0-3); HEMATOCRIT 30.9 % (39.0-53.0); HEMOGLOBIN 10.6 g/dL (13.0-17.5); LYMPH # 0.8 x10^3/uL (1.0-4.8); LYMPH % 9 % (24-48); MEAN CORPUSCULAR HEMOGLOBIN 32 pg (25-35); MEAN CORPUSCULAR HGB CONC 34 g/dL (31-37); MEAN CORPUSCULAR VOLUME 93 fL (79-100); MONO # 1.8 x10^3/uL (0.0-1.1); MONO % 21 % (0-9); NEUT % 70 % (31-73); PLATELET COUNT 163 x10^3/uL (140-400); RED BLOOD COUNT 3.31 x10^6/uL (4.30-5.70); RED CELL DISTRIBUTION WIDTH 13.6 % (11.5-14.5); WHITE BLOOD COUNT 8.6 x10^3/uL (4.0-11.0)
[2019-11-24 05:10] LABS: ALBUMIN 2.5 g/dL (3.4-5.0); ALBUMIN/GLOBULIN RATIO 0.7 (1.0-1.7); CALCIUM 7.9 mg/dL (8.5-10.1); CREATININE 1.1 mg/dL (0.7-1.3); GFR 81.8; POTASSIUM 3.8 mmol/L (3.5-5.1); TOTAL BILIRUBIN 0.4 mg/dL (0.2-1.0)
[2019-11-24 07:20] VITALS: BP 104/55
[2019-11-24] MEDS: PANTOPRAZOLE IV PUSH 40 MG VIAL. IVP SCH ×2 (07:58→21:38)
[2019-11-24] MEDS ORDERED: ONDANSETRON PF 4 MG/2 ML VIAL. IV PRN (08:15)
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
[2019-11-24] MEDS ORDERED: DEXTROSE 50% 25 GM / 50ML DISP.SYRIN. IV PRN (08:30)
[2019-11-24] MEDS ORDERED: ZIPRASIDONE IM 20 MG VIAL. IM ONE (09:00)
[2019-11-24] MEDS: VALPROIC ACID (AS SODIUM SALT) 500 MG in IV DEXTROSE 5% 50 ML IV SCH ×2 (09:08→21:38)
--- NOTE | 2019-11-24 10:05 | PDOC ---
Subjective: Subjective: I asked about any pain - "nope!" I asked if he stooled - "nope!" Objective: Objective: D/w nurse - stooled before got to floor from ER yesterday, barely any NG output. S/p Relistor x 1 though can't see he got suppository. Vital Signs: Vital Signs Date Time Temp Pulse Resp B/P (MAP) Pulse Ox O2 Delivery O2 Flow Rate FiO2 11/24/19 07:43 Room Air 11/24/19 07:20 98.0 103 16 104/55 (71) 95 98.0 11/23/19 11:55 1.0 Labs: Laboratory Tests Test 11/23/19 10:05 11/24/19 04:20 Urine Collection Type Unknown Urine Color Gricelda Urine Clarity Clear Urine pH 5.5 Urine Specific [place] >=1.030 Urine Protein Negative mg/dL Urine Glucose (UA) Negative mg/dL Urine Ketones (Stick) Trace mg/dL Urine Blood Trace Urine Nitrite Negative Urine Bilirubin Small Urine Urobilinogen Dipstick 1.0 mg/dL Urine Leukocyte Esterase Negative Urine RBC Occ /HPF Urine WBC Occ /HPF Urine Squamous Epithelial Cells Few /LPF Urine Bacteria Few /HPF Urine Mucus Marked /LPF White Blood Count 8.6 x10^3/uL Red Blood Count 3.31 x10^6/uL Hemoglobin 10.6 g/dL Hematocrit 30.9 % Mean Corpuscular Volume 93 fL Mean Corpuscular Hemoglobin 32 pg Mean Corpuscular Hemoglobin Concent 34 g/dL Red Cell Distribution Width 13.6 % Platelet Count 163 x10^3/uL Neutrophils (%) (Auto) 70 % Lymphocytes (%) (Auto) 9 % Monocytes (%) (Auto) 21 % Eosinophils (%) (Auto) 1 % Basophils (%) (Auto) 0 % Neutrophils # (Auto) 6.0 x10^3/uL Lymphocytes # (Auto) 0.8 x10^3/uL Monocytes # (Auto) 1.8 x10^3/uL Eosinophils # (Auto) 0.0 x10^3/uL Basophils # (Auto) 0.0 x10^3/uL Sodium Level 143 mmol/L Potassium Level 3.8 mmol/L Chloride Level 104 mmol/L Carbon Dioxide Level 30 mmol/L Anion Gap 9 Blood Urea Nitrogen 19 mg/dL Creatinine 1.1 mg/dL Estimated GFR (Cockcroft-Gault) 81.8 BUN/Creatinine Ratio 17 Glucose Level 86 mg/dL Calcium Level 7.9 mg/dL Total Bilirubin 0.4 mg/dL Aspartate Amino Transf (AST/SGOT) 11 U/L Alanine Aminotransferase (ALT/SGPT) 15 U/L Alkaline Phosphatase 62 U/L Total Protein 6.0 g/dL Albumin 2.5 g/dL Albumin/Globulin Ratio 0.7 Imaging: KUB 11/22 IMPRESSION: Stable diffusely dilated bowel. Enteric tube terminates in the stomach. PE: GEN: NAD LUNGS: CTAB anteriorly HEART: mildly tachycardic ABD: trace bilious output from NG, softer today w/ a few tinkling bowel sounds, does not seem tender NEURO/PSYCH: awake A/P: Recurrent ileus/pseudo-obstruction Chronic anemia Cognitive impairment -- As above, not much from NGT and stooled yesterday. Abdomen softer but bowel sounds not impressive. Will d/w Dr. Alan - clamp NG and observe? Hemodynamically unstable?: No Is patient in severe pain?: No Is NPO status required?: Yes ELVIS VAZQUEZ November 24, 2019 10:05
--- NOTE | 2019-11-24 10:33 | CONS ---
DATE OF CONSULTATION: PULMONARY CONSULTATION ATTENDING PHYSICIAN: Migue Martinez DO REASON FOR CONSULTATION: Abnormal CT chest, possible pneumonia. HISTORY OF PRESENT ILLNESS: The patient is a 64-year-old male who lives in a assisted. He was admitted with increasing abdominal distention and some nausea and vomiting. He had low-grade fever. He denied any cough, denied any shortness of breath, no chest pains. He underwent CT abdomen and pelvis. I have reviewed the lower sections of the lungs on CT abdomen. The patient has likely compressive atelectasis from distended abdomen. He had markedly increased air-fluid levels consistent with obstruction. I have been asked to see him for further evaluation. He has no significant tobacco history. PAST MEDICAL HISTORY: Significant for GERD, cognitively challenged, history of chronic abdominal distention, hyperlipidemia, seizures, and developmental delay. PAST SURGICAL HISTORY: No recent surgeries. ALLERGIES: None. FAMILY HISTORY: Hypertension. SOCIAL HISTORY: Lives in a assisted. No history of tobacco or alcohol use. MEDICATIONS: Reviewed as listed in the MRAD. REVIEW OF SYSTEMS: Twelve-point system obtained. Pertinent positives discussed in my present illness, otherwise noncontributory. All systems that were negative were reviewed as well. PHYSICAL EXAMINATION: VITAL SIGNS: Reviewed. T-max of 99. Pulse ox 95% on room air, blood pressure is stable. HEENT: Sclerae nonicteric. NECK: Supple. LUNGS: Clear. CARDIOVASCULAR: With regular rate and rhythm. ABDOMEN: Soft, distended and decreased bowel sounds. EXTREMITIES: With no pitting edema. LABORATORY DATA: Reviewed. White cell count 8.6, hemoglobin 10.6 and platelets are 163. BUN and creatinine 19 and 1.1. Albumin is 2.5. IMPRESSION: 1. Abnormal CT abdomen and pelvis with likely compressive atelectasis from distended abdomen. Clinically, lacks symptoms of pneumonia. 2. Markedly distended loops of bowels with air-fluid levels, suggesting ileus/small bowel obstruction. 3. Follow GI recommendation. 4. No significant tobacco history. RECOMMENDATIONS: 1. From a pulmonary standpoint, I do not see a need for antibiotics. Clinically, lacks symptoms of pneumonia. 2. Incentive spirometry. 3. NG for decompression of the bowel. 4. Follow GI recommendations. 5. Surgery consult if indicated. 6. Discussed with RN and the patient. We will follow along with you. BRODY ROSARIO MD DR: Kathy JOB#: [id number] / [id number]
[2019-11-24 10:51] VITALS: BP 112/57
[2019-11-24] MEDS: INSULIN LISPRO 300 UNITS/3 ML VIAL. SQ SCH ×3 (11:17→21:00)
--- NOTE | 2019-11-24 11:40 | NUR ---
SS following for discharge planning. SS reviewed pt chart and discussed with pt RN. Pt is from [facility], . Per RN, pt has NG tube and is currently on room air. SS will continue to follow for discharge planning.
[2019-11-24 15:06] VITALS: BP 131/74
[2019-11-24 19:30] VITALS: BP 129/67
[2019-11-24 22:49] VITALS: BP 115/70
[2019-11-25 02:15] VITALS: BP 131/78
[2019-11-25] MEDS: IV RINGERS,LACTATED 1000ML 1,000 ML IV SCH ×2 (06:02→16:07)
[2019-11-25] MEDS: INSULIN LISPRO 300 UNITS/3 ML VIAL. SQ SCH ×4 (07:30→21:00)
[2019-11-25 07:59] VITALS: BP 111/63
[2019-11-25] MEDS ORDERED: LACTULOSE 20 GM/30 ML SOLUTION. PO PRN (08:30)
[2019-11-25] MEDS ORDERED: guaiFENesin ORAL 200 MG/10 ML LIQUID. PO PRN (08:30)
[2019-11-25] MEDS ORDERED: ACETAMINOPHEN 500 MG TABLET PO PRN (08:30)
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
[2019-11-25] MEDS: PANTOPRAZOLE IV PUSH 40 MG VIAL. IVP SCH ×2 (08:56→21:44)
[2019-11-25] MEDS ORDERED: BISACODYL 10 MG SUPP.RECT. PR PRN (09:00)
[2019-11-25] MEDS ORDERED: PSYLLIUM HUSK (SUGAR FREE) 1 PKT PACKET PO PRN (09:00)
[2019-11-25] MEDS: DIVALPROEX DELAYED RELEASE 500 MG TABLET.DR. PO SCH ×3 (10:34→21:44)
[2019-11-25] MEDS: GABAPENTIN 300 MG CAPSULE. PO SCH ×3 (10:34→21:45)
[2019-11-25] MEDS: QUEtiapine 100 MG TABLET. PO SCH ×2 (10:34→21:45)
[2019-11-25] MEDS: LUBIPROSTONE 24 MCG CAPSULE PO SCH ×2 (10:34→21:46)
[2019-11-25] MEDS: POLYETHYLENE GLYCOL 3350 17 GM PACKET. PO SCH ×3 (10:34→21:00)
[2019-11-25] MEDS: ZIPRASIDONE 20 MG CAPSULE PO SCH ×2 (10:34→21:45)
[2019-11-25] MEDS: MULTIVITAMIN with MINERAL TABLET. PO SCH (10:35)
[2019-11-25] MEDS: ASPIRIN ENTERIC COATED 81 MG TABLET.DR. PO SCH (10:35)
[2019-11-25] MEDS: SIMVASTATIN 40 MG TABLET. PO SCH (10:35)
--- NOTE | 2019-11-25 11:16 | PDOC ---
PULMONARY PROGRESS NOTES Subjective has sob, chest tightness, better w duo neb, has cough, on 02 Vitals Vital Signs Date Time Temp Pulse Resp B/P (MAP) Pulse Ox O2 Delivery O2 Flow Rate FiO2 11/25/19 08:20 Room Air 11/25/19 07:59 98.9 98 18 111/63 (79) 99 98.9 ROS: No Nausea General: Alert, No acute distress HEENT: Other (nc at perrl nose throat clear) Lungs: Clear, Other Cardiovascular: S1, S2 Abdomen: Soft, Non-tender Neuro Exam: Alert Extremities: No Edema Skin: Warm Labs Laboratory Tests Test 11/24/19 04:20 11/24/19 11:08 11/24/19 20:32 11/25/19 07:31 White Blood Count 8.6 x10^3/uL (4.0-11.0) Red Blood Count 3.31 x10^6/uL (4.30-5.70) Hemoglobin 10.6 g/dL (13.0-17.5) Hematocrit 30.9 % (39.0-53.0) Mean Corpuscular Volume 93 fL (79-100) Mean Corpuscular Hemoglobin 32 pg (25-35) Mean Corpuscular Hemoglobin Concent 34 g/dL (31-37) Red Cell Distribution Width 13.6 % (11.5-14.5) Platelet Count 163 x10^3/uL (140-400) Neutrophils (%) (Auto) 70 % (31-73) Lymphocytes (%) (Auto) 9 % (24-48) Monocytes (%) (Auto) 21 % (0-9) Eosinophils (%) (Auto) 1 % (0-3) Basophils (%) (Auto) 0 % (0-3) Neutrophils # (Auto) 6.0 x10^3/uL (1.8-7.7) Lymphocytes # (Auto) 0.8 x10^3/uL (1.0-4.8) Monocytes # (Auto) 1.8 x10^3/uL (0.0-1.1) Eosinophils # (Auto) 0.0 x10^3/uL (0.0-0.7) Basophils # (Auto) 0.0 x10^3/uL (0.0-0.2) Sodium Level 143 mmol/L (136-145) Potassium Level 3.8 mmol/L (3.5-5.1) Chloride Level 104 mmol/L (98-107) Carbon Dioxide Level 30 mmol/L (21-32) Anion Gap 9 (6-14) Blood Urea Nitrogen 19 mg/dL (8-26) Creatinine 1.1 mg/dL (0.7-1.3) Estimated GFR (Cockcroft-Gault) 81.8 BUN/Creatinine Ratio 17 (6-20) Glucose Level 86 mg/dL (70-99) Calcium Level 7.9 mg/dL (8.5-10.1) Total Bilirubin 0.4 mg/dL (0.2-1.0) Aspartate Amino Transf (AST/SGOT) 11 U/L (15-37) Alanine Aminotransferase (ALT/SGPT) 15 U/L (16-63) Alkaline Phosphatase 62 U/L (46-116) Total Protein 6.0 g/dL (6.4-8.2) Albumin 2.5 g/dL (3.4-5.0) Albumin/Globulin Ratio 0.7 (1.0-1.7) Glucose (Fingerstick) 71 mg/dL (70-99) 89 mg/dL (70-99) 92 mg/dL (70-99) Laboratory Tests Test 11/24/19 20:32 11/25/19 07:31 Glucose (Fingerstick) 89 mg/dL (70-99) 92 mg/dL (70-99) Medications Active Scripts Medications Dose Route/Sig Max Daily Dose Days Date Category Amitiza (Lubiprostone) 24 Mcg Capsule 24 Mcg PO BID 11/23/19 Reported Tussin (Guaifenesin) 100 Mg/5 Ml Liquid 200 Mg PO PRN Q4HRS PRN 08/28/19 Reported Lactulose 20 Gm/30 Ml Solution 20 Gm PO PRN BID PRN 08/28/19 Reported Ibuprofen 400 Mg Tablet 400 Mg PO PRN Q6HRS PRN 08/28/19 Reported Diphenhydramine Hcl 25 Mg Tablet 25 Mg PO PRN DAILY PRN 08/28/19 Reported Acetaminophen 500 Mg Tablet 1,000 Mg PO PRN Q6HRS PRN 08/28/19 Reported Geodon (Ziprasidone Hcl) 40 Mg Capsule 80 Mg PO QHS 08/28/19 Reported Senna Laxative (Sennosides) 8.6 Mg Tablet 1 Tab PO QHS 30 08/28/19 Reported Divalproex Sodium 500 Mg Tablet.dr 250 Mg PO DAILY16 08/28/19 Reported Geodon (Ziprasidone Hcl) 40 Mg Capsule 40 Mg PO DAILYWBKFT 12/02/16 Reported Seroquel (Quetiapine Fumarate) 300 Mg Tablet 600 Mg PO HS 12/02/16 Reported Melatonin 3 Mg Tablet 1 Tab PO QHS 12/02/16 Reported Gabapentin 600 Mg Tablet 600 Mg PO TID 12/02/16 Reported Polyethylene Glycol 3350 17 Gm Powd.pack 17 Gm PO TID 07/19/15 Rx [Bisacodyl] 10 MG Supp.rect 10 Mg AL PRN DAILY PRN 02/12/15 Rx Pepcid (Famotidine) 20 Mg Tablet 20 Mg PO QHS 02/12/15 Rx Tab-A-Rachele (Multivitamin) 1 Each Tablet 1 Each PO DAILY 03/27/14 Reported Simvastatin 40 Mg Tablet 40 Mg PO DAILY 03/27/14 Reported Quetiapine Fumarate 100 Mg Tablet 100 Mg PO DAILY 03/27/14 Reported Natural Fiber Laxative Powder (Psyllium Husk/Aspartame) 283 Gm Powder 283 Gm PO PRN DAILY PRN 03/27/14 Reported Depakote (Divalproex Sodium) 500 Mg Tablet.dr 1 Tab PO BID 03/27/14 Reported Benztropine Mesylate 1 Mg Tablet 0.5 Mg PO QHS 03/27/14 Reported Aspir-Low (Aspirin) 81 Mg Tablet.dr 81 Mg PO DAILY 03/27/14 Reported Impression . IMPRESSION: 1. Abnormal CT abdomen and pelvis with likely compressive atelectasis from distended abdomen. Clinically, lacks symptoms of pneumonia. 2. Markedly distended loops of bowels with air-fluid levels, suggesting ileus/small bowel obstruction. 3. Follow GI recommendation. 4. No significant tobacco history. Plan . RECOMMENDATIONS: 1. From a pulmonary standpoint, I do not see a need for antibiotics. Clinically, lacks symptoms of pneumonia. 2. Incentive spirometry. 3. BD, 02 titration. 4. Follow GI recommendations. 5. Surgery consult if indicated. Discussed with RN and the patient. We will follow along with you. MORENITA PINK MD November 25, 2019 11:16
[2019-11-25 11:59] VITALS: BP 132/77
--- NOTE | 2019-11-25 14:09 | PDOC ---
Subjective: Subjective: NGT out per patient request. Objective: Vital Signs: Vital Signs Date Time Temp Pulse Resp B/P (MAP) Pulse Ox O2 Delivery O2 Flow Rate FiO2 11/25/19 11:59 99.1 93 18 132/77 (95) 93 Room Air 99.1 Labs: Laboratory Tests Test 11/24/19 20:32 11/25/19 07:31 11/25/19 12:53 Glucose (Fingerstick) 89 mg/dL (70-99) 92 mg/dL (70-99) 88 mg/dL (70-99) Physical Exam: Physical Exam: Asleep Abd soft Assessment & Plan: Assessment : A/P: Recurrent ileus/pseudo-obstruction Chronic anemia Cognitive impairment Plan: resolving Monitor sx with NGT out Hemodynamically unstable?: No Is patient in severe pain?: No Is NPO status required?: Yes MEENA TADEO MD November 25, 2019 14:09
[2019-11-25 15:59] VITALS: BP 140/70
[2019-11-25 19:00] VITALS: BP 142/76
--- NOTE | 2019-11-25 20:38 | NUR ---
Patients glucose was 66, RN administered 25mg of dextrose and glucose was rechecked at 2044 glucose went up to 85. Addendum: 11/26/19 at 0705 by EMIR GONZALES RN Patients glucose was 66, RN administered 25ml of dextrose, glucose rechecked at 2044 glucose went up to 85.
[2019-11-25] MEDS ORDERED: FAMOTIDINE 20 MG TABLET. PO SCH (21:00)
[2019-11-25] MEDS ORDERED: NON FORMULARY ITEM (Melatonin 1 TAB) PO SCH (21:00)
[2019-11-25] MEDS: SENNOSIDES 8.6 MG TABLET PO SCH (21:00)
[2019-11-25] MEDS: BENZTROPINE MESYLATE 1 MG TABLET. PO SCH (21:46)
[2019-11-25 23:00] VITALS: BP 145/79
[2019-11-26] MEDS: IV RINGERS,LACTATED 1000ML 1,000 ML IV SCH ×3 (02:30→17:18)
[2019-11-26 03:00] VITALS: BP 118/67
[2019-11-26 07:00] VITALS: BP 147/84
[2019-11-26] MEDS: INSULIN LISPRO 300 UNITS/3 ML VIAL. SQ SCH ×4 (07:30→21:00)
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
[2019-11-26] MEDS: POLYETHYLENE GLYCOL 3350 17 GM PACKET. PO SCH ×3 (08:13→21:00)
[2019-11-26] MEDS: ASPIRIN ENTERIC COATED 81 MG TABLET.DR. PO SCH (08:20)
[2019-11-26] MEDS: MULTIVITAMIN with MINERAL TABLET. PO SCH (08:20)
[2019-11-26] MEDS: SIMVASTATIN 40 MG TABLET. PO SCH (08:21)
[2019-11-26] MEDS: QUEtiapine 100 MG TABLET. PO SCH ×2 (08:21→21:36)
[2019-11-26] MEDS: GABAPENTIN 300 MG CAPSULE. PO SCH ×3 (08:21→21:35)
[2019-11-26] MEDS: ZIPRASIDONE 20 MG CAPSULE PO SCH ×2 (08:21→21:35)
[2019-11-26] MEDS: DIVALPROEX DELAYED RELEASE 500 MG TABLET.DR. PO SCH ×3 (08:21→21:36)
[2019-11-26] MEDS: LUBIPROSTONE 24 MCG CAPSULE PO SCH ×2 (08:21→21:35)
[2019-11-26] MEDS: PANTOPRAZOLE IV PUSH 40 MG VIAL. IVP SCH ×2 (08:22→21:37)
[2019-11-26 11:00] VITALS: BP 152/78
--- NOTE | 2019-11-26 12:45 | PDOC ---
PULMONARY PROGRESS NOTES Subjective on ra. answers yes to all Qs, appears comfortable Vitals Vital Signs Date Time Temp Pulse Resp B/P (MAP) Pulse Ox O2 Delivery O2 Flow Rate FiO2 11/26/19 11:00 97.9 68 18 152/78 (102) 96 Room Air 97.9 ROS: No Nausea General: Alert, No acute distress HEENT: Other (nc at perrl nose throat clear) Lungs: Clear Cardiovascular: S1, S2 Abdomen: Soft, Non-tender Neuro Exam: Alert Extremities: No Edema Skin: Warm Labs Laboratory Tests Test 11/24/19 20:32 11/25/19 07:31 11/25/19 12:53 11/25/19 19:56 Glucose (Fingerstick) 89 mg/dL (70-99) 92 mg/dL (70-99) 88 mg/dL (70-99) 66 mg/dL (70-99) Test 11/25/19 20:35 11/25/19 20:48 11/26/19 03:37 11/26/19 07:50 Glucose (Fingerstick) 65 mg/dL (70-99) 85 mg/dL (70-99) 86 mg/dL (70-99) 79 mg/dL (70-99) Test 11/26/19 11:49 Glucose (Fingerstick) 89 mg/dL (70-99) Laboratory Tests Test 11/25/19 12:53 11/25/19 19:56 11/25/19 20:35 11/25/19 20:48 Glucose (Fingerstick) 88 mg/dL (70-99) 66 mg/dL (70-99) 65 mg/dL (70-99) 85 mg/dL (70-99) Test 11/26/19 03:37 11/26/19 07:50 11/26/19 11:49 Glucose (Fingerstick) 86 mg/dL (70-99) 79 mg/dL (70-99) 89 mg/dL (70-99) Medications Active Scripts Medications Dose Route/Sig Max Daily Dose Days Date Category Amitiza (Lubiprostone) 24 Mcg Capsule 24 Mcg PO BID 11/23/19 Reported Tussin (Guaifenesin) 100 Mg/5 Ml Liquid 200 Mg PO PRN Q4HRS PRN 08/28/19 Reported Lactulose 20 Gm/30 Ml Solution 20 Gm PO PRN BID PRN 08/28/19 Reported Ibuprofen 400 Mg Tablet 400 Mg PO PRN Q6HRS PRN 08/28/19 Reported Diphenhydramine Hcl 25 Mg Tablet 25 Mg PO PRN DAILY PRN 08/28/19 Reported Acetaminophen 500 Mg Tablet 1,000 Mg PO PRN Q6HRS PRN 08/28/19 Reported Geodon (Ziprasidone Hcl) 40 Mg Capsule 80 Mg PO QHS 08/28/19 Reported Senna Laxative (Sennosides) 8.6 Mg Tablet 1 Tab PO QHS 30 08/28/19 Reported Divalproex Sodium 500 Mg Tablet.dr 250 Mg PO DAILY16 08/28/19 Reported Geodon (Ziprasidone Hcl) 40 Mg Capsule 40 Mg PO DAILYWBKFT 12/02/16 Reported Seroquel (Quetiapine Fumarate) 300 Mg Tablet 600 Mg PO HS 12/02/16 Reported Melatonin 3 Mg Tablet 1 Tab PO QHS 12/02/16 Reported Gabapentin 600 Mg Tablet 600 Mg PO TID 12/02/16 Reported Polyethylene Glycol 3350 17 Gm Powd.pack 17 Gm PO TID 07/19/15 Rx [Bisacodyl] 10 MG Supp.rect 10 Mg [place] PRN DAILY PRN 02/12/15 Rx Pepcid (Famotidine) 20 Mg Tablet 20 Mg PO QHS 02/12/15 Rx Tab-A-Rachele (Multivitamin) 1 Each Tablet 1 Each PO DAILY 03/27/14 Reported Simvastatin 40 Mg Tablet 40 Mg PO DAILY 03/27/14 Reported Quetiapine Fumarate 100 Mg Tablet 100 Mg PO DAILY 03/27/14 Reported Natural Fiber Laxative Powder (Psyllium Husk/Aspartame) 283 Gm Powder 283 Gm PO PRN DAILY PRN 03/27/14 Reported Depakote (Divalproex Sodium) 500 Mg Tablet. 1 Tab PO BID 03/27/14 Reported Benztropine Mesylate 1 Mg Tablet 0.5 Mg PO QHS 03/27/14 Reported Aspir-Low (Aspirin) 81 Mg Tablet.dr 81 Mg PO DAILY 03/27/14 Reported Impression . IMPRESSION: 1. Abnormal CT abdomen and pelvis with likely compressive atelectasis from distended abdomen. Clinically, lacks symptoms of pneumonia. 2. Markedly distended loops of bowels with air-fluid levels, suggesting ileus/small bowel obstruction. 3. Follow GI recommendation. 4. No significant tobacco history. Plan . RECOMMENDATIONS: 1. From a pulmonary standpoint, I do not see a need for antibiotics. Clinically, lacks symptoms of pneumonia. 2. Incentive spirometry. 3. BD, 02 titration. 4. Follow GI recommendations. 5. Surgery consult if indicated. Discussed with RN and the patient. We will follow along with you. MORENITA PINK MD November 26, 2019 12:45
[2019-11-26 15:00] VITALS: BP 148/86
[2019-11-26 19:00] VITALS: BP 150/74
[2019-11-26] MEDS: BENZTROPINE MESYLATE 1 MG TABLET. PO SCH (21:35)
[2019-11-26] MEDS: SENNOSIDES 8.6 MG TABLET PO SCH (21:36)
[2019-11-26 23:00] VITALS: BP 108/61
[2019-11-27 03:00] VITALS: BP 141/79
[2019-11-27] MEDS: IV RINGERS,LACTATED 1000ML 1,000 ML IV SCH ×2 (04:45→16:24)
[2019-11-27 07:00] VITALS: BP 106/53
[2019-11-27] MEDS: INSULIN LISPRO 300 UNITS/3 ML VIAL. SQ SCH ×4 (07:30→21:00)
[2019-11-27] MEDS: LUBIPROSTONE 24 MCG CAPSULE PO SCH ×2 (08:54→21:19)
[2019-11-27] MEDS: POLYETHYLENE GLYCOL 3350 17 GM PACKET. PO SCH ×3 (08:55→21:20)
[2019-11-27] MEDS: MULTIVITAMIN with MINERAL TABLET. PO SCH (08:55)
[2019-11-27] MEDS: ZIPRASIDONE 20 MG CAPSULE PO SCH ×2 (08:55→21:19)
[2019-11-27] MEDS: DIVALPROEX DELAYED RELEASE 500 MG TABLET.DR. PO SCH ×3 (08:55→21:19)
[2019-11-27] MEDS: QUEtiapine 100 MG TABLET. PO SCH ×2 (08:55→21:19)
[2019-11-27] MEDS: SIMVASTATIN 40 MG TABLET. PO SCH (08:55)
[2019-11-27] MEDS: ASPIRIN ENTERIC COATED 81 MG TABLET.DR. PO SCH (08:55)
[2019-11-27] MEDS: PANTOPRAZOLE IV PUSH 40 MG VIAL. IVP SCH (08:55)
[2019-11-27] MEDS: GABAPENTIN 300 MG CAPSULE. PO SCH ×3 (08:55→21:20)
--- NOTE | 2019-11-27 10:16 | PDOC ---
Subjective: Subjective: I asked if he was eating okay - "yep." I asked if he has stooled - did not respond. I asked if he had pain - "yep." Objective: Objective: Reviewed chart - on ADA diet, COVID-19 pending, stool charted 11/25. Getting Amitiza, Miralax, Senna. Vital Signs: Vital Signs Date Time Temp Pulse Resp B/P (MAP) Pulse Ox O2 Delivery O2 Flow Rate FiO2 11/27/19 07:20 Room Air 11/27/19 07:00 97.8 95 18 106/53 (70) 96 97.8 Labs: Laboratory Tests Test 11/26/19 11:49 11/26/19 16:57 11/26/19 20:46 11/27/19 07:23 Glucose (Fingerstick) 89 mg/dL 103 mg/dL 97 mg/dL 109 mg/dL PE: GEN: NAD, laying on left side H LUNGS: CTAB HEART: RRR ABD: soft, non-distended, fairly quiet NEURO/PSYCH: A & O 3 A/P: Recurrent ileus/pseudo-obstruction Cognitive impairment -- Stable GI-martinez - apparently eating and stooling. Continue constipation treatment long-term. Hemodynamically unstable?: No Is patient in severe pain?: No Is NPO status required?: No ELVIS VAZQUEZ Nov 27, 2019 10:16
[2019-11-27 10:44] VITALS: BP 108/58
[2019-11-27] MEDS: MORPHINE SULFATE 2 MG/ML VIAL. IV PRN ×2 (10:46→16:29)
--- NOTE | 2019-11-27 13:41 | NUR ---
SW following. Discussed with RN, pt is from [facility], [place] (ph: [phone]). Pt currently on room air, COVID-[address] negative[address] JAMIL [address] Dr. Keen to determine discharge planning. JAMIL will continue to follow.
--- NOTE | 2019-11-27 13:51 | PDOC ---
PULMONARY PROGRESS NOTES Subjective on ra. answers yes to all Qs, appears comfortable Vitals Vital Signs Date Time Temp Pulse Resp B/P (MAP) Pulse Ox O2 Delivery O2 Flow Rate FiO2 11/27/19 10:46 Room Air 11/27/19 10:44 97.9 90 18 108/58 (75) 96 97.9 ROS: No Nausea General: Alert, No acute distress HEENT: Other (nc at perrl nose throat clear) Lungs: Clear Cardiovascular: S1, S2 Abdomen: Soft, Non-tender Neuro Exam: Alert Extremities: No Edema Skin: Warm Labs Laboratory Tests Test 11/25/19 19:56 11/25/19 20:35 11/25/19 20:48 11/26/19 03:37 Glucose (Fingerstick) 66 mg/dL (70-99) 65 mg/dL (70-99) 85 mg/dL (70-99) 86 mg/dL (70-99) Test 11/26/19 07:50 11/26/19 11:49 11/26/19 15:00 11/26/19 16:57 Glucose (Fingerstick) 79 mg/dL (70-99) 89 mg/dL (70-99) 103 mg/dL (70-99) Coronavirus (COVID-19)(PCR) Not detected (NOT DETECT.) Test 11/26/19 20:46 11/27/19 07:23 11/27/19 11:06 Glucose (Fingerstick) 97 mg/dL (70-99) 109 mg/dL (70-99) 124 mg/dL (70-99) Laboratory Tests Test 11/26/19 15:00 11/26/19 16:57 11/26/19 20:46 11/27/19 07:23 Coronavirus (COVID-19)(PCR) Not detected (NOT DETECT.) Glucose (Fingerstick) 103 mg/dL (70-99) 97 mg/dL (70-99) 109 mg/dL (70-99) Test 11/27/19 11:06 Glucose (Fingerstick) 124 mg/dL (70-99) Medications Active Scripts Medications Dose Route/Sig Max Daily Dose Days Date Category Amitiza (Lubiprostone) 24 Mcg Capsule 24 Mcg PO BID 11/23/19 Reported Tussin (Guaifenesin) 100 Mg/5 Ml Liquid 200 Mg PO PRN Q4HRS PRN 08/28/19 Reported Lactulose 20 Gm/30 Ml Solution 20 Gm PO PRN BID PRN 08/28/19 Reported Ibuprofen 400 Mg Tablet 400 Mg PO PRN Q6HRS PRN 08/28/19 Reported Diphenhydramine Hcl 25 Mg Tablet 25 Mg PO PRN DAILY PRN 08/28/19 Reported Acetaminophen 500 Mg Tablet 1,000 Mg PO PRN Q6HRS PRN 08/28/19 Reported Geodon (Ziprasidone Hcl) 40 Mg Capsule 80 Mg PO QHS 08/28/19 Reported Senna Laxative (Sennosides) 8.6 Mg Tablet 1 Tab PO QHS 30 08/28/19 Reported Divalproex Sodium 500 Mg Tablet.dr 250 Mg PO DAILY16 08/28/19 Reported Geodon (Ziprasidone Hcl) 40 Mg Capsule 40 Mg PO DAILYWBKFT 12/02/16 Reported Seroquel (Quetiapine Fumarate) 300 Mg Tablet 600 Mg PO HS 12/02/16 Reported Melatonin 3 Mg Tablet 1 Tab PO QHS 12/02/16 Reported Gabapentin 600 Mg Tablet 600 Mg PO TID 12/02/16 Reported Polyethylene Glycol 3350 17 Gm Powd.pack 17 Gm PO TID 07/19/15 Rx [Bisacodyl] 10 MG Supp.rect 10 Mg [place] PRN DAILY PRN 02/12/15 Rx Pepcid (Famotidine) 20 Mg Tablet 20 Mg PO QHS 02/12/15 Rx Tab-A-Rachele (Multivitamin) 1 Each Tablet 1 Each PO DAILY 03/27/14 Reported Simvastatin 40 Mg Tablet 40 Mg PO DAILY 03/27/14 Reported Quetiapine Fumarate 100 Mg Tablet 100 Mg PO DAILY 03/27/14 Reported Natural Fiber Laxative Powder (Psyllium Husk/Aspartame) 283 Gm Powder 283 Gm PO PRN DAILY PRN 03/27/14 Reported Depakote (Divalproex Sodium) 500 Mg Tablet.dr 1 Tab PO BID 03/27/14 Reported Benztropine Mesylate 1 Mg Tablet 0.5 Mg PO QHS 03/27/14 Reported Aspir-Low (Aspirin) 81 Mg Tablet.dr 81 Mg PO DAILY 03/27/14 Reported Impression . IMPRESSION: 1. Abnormal CT abdomen and pelvis with likely compressive atelectasis from distended abdomen. Clinically, lacks symptoms of pneumonia. 2. Markedly distended loops of bowels with air-fluid levels, suggesting ileus/small bowel obstruction. 3. Follow GI recommendation. 4. No significant tobacco history. Plan . RECOMMENDATIONS: 1. From a pulmonary standpoint, I do not see a need for antibiotics. Clinically, lacks symptoms of pneumonia. 2. Incentive spirometry. 3. BD, 02 titration. 4. Follow GI recommendations. Discussed with RN and the patient. We will follow along with you. BRODY ROSARIO MD Nov 27, 2019 13:51
[2019-11-27 15:00] VITALS: BP 112/60
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
[2019-11-27 19:00] VITALS: BP 97/55
[2019-11-27] MEDS: SENNOSIDES 8.6 MG TABLET PO SCH (21:20)
[2019-11-27] MEDS: BENZTROPINE MESYLATE 1 MG TABLET. PO SCH (21:21)
[2019-11-27 23:00] VITALS: BP 89/45
[2019-11-28 03:00] VITALS: BP 94/58
[2019-11-28] MEDS: IV RINGERS,LACTATED 1000ML 1,000 ML IV SCH (06:10)
[2019-11-28 07:00] VITALS: BP 84/47
[2019-11-28] MEDS: INSULIN LISPRO 300 UNITS/3 ML VIAL. SQ SCH (07:30)
[2019-11-28 09:00] LABS: BASO % 0 % (0-3); EOS % 0 % (0-3); HEMATOCRIT 29.5 % (39.0-53.0); HEMOGLOBIN 10.2 g/dL (13.0-17.5); LYMPH # 0.8 x10^3/uL (1.0-4.8); LYMPH % 10 % (24-48); MEAN CORPUSCULAR HEMOGLOBIN 33 pg (25-35); MEAN CORPUSCULAR HGB CONC 35 g/dL (31-37); MEAN CORPUSCULAR VOLUME 94 fL (79-100); MONO # 1.2 x10^3/uL (0.0-1.1); MONO % 15 % (0-9); NEUT % 74 % (31-73); PLATELET COUNT 168 x10^3/uL (140-400); RED BLOOD COUNT 3.15 x10^6/uL (4.30-5.70); RED CELL DISTRIBUTION WIDTH 13.2 % (11.5-14.5); WHITE BLOOD COUNT 8.1 x10^3/uL (4.0-11.0)
[2019-11-28] MEDS: ZIPRASIDONE 20 MG CAPSULE PO SCH (09:00)
[2019-11-28] MEDS: ASPIRIN ENTERIC COATED 81 MG TABLET.DR. PO SCH (09:00)
[2019-11-28] MEDS: MULTIVITAMIN with MINERAL TABLET. PO SCH (09:00)
[2019-11-28] MEDS: LUBIPROSTONE 24 MCG CAPSULE PO SCH (09:00)
[2019-11-28] MEDS: GABAPENTIN 300 MG CAPSULE. PO SCH (09:01)
[2019-11-28] MEDS: POLYETHYLENE GLYCOL 3350 17 GM PACKET. PO SCH (09:01)
[2019-11-28] MEDS: QUEtiapine 100 MG TABLET. PO SCH (09:01)
[2019-11-28] MEDS: DIVALPROEX DELAYED RELEASE 500 MG TABLET.DR. PO SCH (09:01)
[2019-11-28] MEDS: SIMVASTATIN 40 MG TABLET. PO SCH (09:01)
[2019-11-28 09:14] LABS: CALCIUM 7.6 mg/dL (8.5-10.1); CREATININE 0.8 mg/dL (0.7-1.3); GFR 118.1; POTASSIUM 3.7 mmol/L (3.5-5.1)
--- NOTE | 2019-11-28 10:08 | NUR ---
JAMIL following. Discussed with RN and Dr. Keen. Pt discharging back to [facility] today. JAMIL contacted Ramandeep at [facility] ([phone]) to advise of discharge. Ramandeep will pick pt up at 1045. RN notified.
--- NOTE | 2019-11-28 10:17 | PDOC ---
Subjective: Subjective: Says eating okay and stooling. Objective: Objective: D/w Dr. Keen - probable DC today. Vital Signs: Vital Signs Date Time Temp Pulse Resp B/P (MAP) Pulse Ox O2 Delivery O2 Flow Rate FiO2 11/28/19 07:05 Room Air 11/28/19 07:00 98.0 107 17 84/47 (59) 95 98.0 Labs: Laboratory Tests Test 11/27/19 11:06 11/27/19 21:31 11/28/19 06:59 11/28/19 08:35 Glucose (Fingerstick) 124 mg/dL 84 mg/dL 80 mg/dL White Blood Count 8.1 x10^3/uL Red Blood Count 3.15 x10^6/uL Hemoglobin 10.2 g/dL Hematocrit 29.5 % Mean Corpuscular Volume 94 fL Mean Corpuscular Hemoglobin 33 pg Mean Corpuscular Hemoglobin Concent 35 g/dL Red Cell Distribution Width 13.2 % Platelet Count 168 x10^3/uL Neutrophils (%) (Auto) 74 % Lymphocytes (%) (Auto) 10 % Monocytes (%) (Auto) 15 % Eosinophils (%) (Auto) 0 % Basophils (%) (Auto) 0 % Neutrophils # (Auto) 6.0 x10^3/uL Lymphocytes # (Auto) 0.8 x10^3/uL Monocytes # (Auto) 1.2 x10^3/uL Eosinophils # (Auto) 0.0 x10^3/uL Basophils # (Auto) 0.0 x10^3/uL Sodium Level 141 mmol/L Potassium Level 3.7 mmol/L Chloride Level 103 mmol/L Carbon Dioxide Level 30 mmol/L Anion Gap 8 Blood Urea Nitrogen 13 mg/dL Creatinine 0.8 mg/dL Estimated GFR (Cockcroft-Gault) 118.1 Glucose Level 85 mg/dL Calcium Level 7.6 mg/dL PE: GEN: NAD - breakfast plate empty LUNGS: CTAB HEART: RRR ABD: round/stable chronic distention, non-tender NEURO/PSYCH: A & O 3 A/P: Recurrent ileus/pseudo-obstruction -- Eating and stooling. DC per primary - ?repeat Relistor prior - will review w/ Dr. Alan. Justicifation of Admission Dx: Justifications for Admission: Justification of Admission Dx: Yes ELVIS VAZQUEZ Nov 28, 2019 10:17
[2019-11-28 10:48] VITALS: BP 114/65
--- NOTE | 2019-11-28 10:53 | NUR ---
Pt. discharged to home, pt's caregiver Ramandeep verbalized understanding of discharge instructions
[2019-11-28] MEDS ORDERED: METHYLNALTREXONE 12 MG/0.6 ML VIAL. SQ ONE (12:00)
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
== END 2019-11-28 11:00 | disposition home or self-care (01) | DRG 388 ==
LOC: ER 08:56 → 4 NORTH 13:00
PROVIDERS: ADMIT Internal Medicine; ATTEND Internal Medicine
PROC: 0D9670Z Drainage of Stomach with Drainage Device, Via Natural or Artificial Opening (ICD-10-PCS; principal; 2019-11-23)
DX: K56.699 Other intestinal obstruction unspecified as to partial versus complete obstruction (principal); E43 Unspecified severe protein-calorie malnutrition; J18.9 Pneumonia, unspecified organism; J98.11 Atelectasis; Z68.41 Body mass index [BMI] 40.0-44.9, adult; D64.9 Anemia, unspecified; E11.9 Type 2 diabetes mellitus without complications; E78.00 Pure hypercholesterolemia, unspecified; E78.5 Hyperlipidemia, unspecified; K21.9 Gastro-esophageal reflux disease without esophagitis; F20.9 Schizophrenia, unspecified; F79 Unspecified intellectual disabilities; I10 Essential (primary) hypertension; Z20.828 Contact with and (suspected) exposure to other viral communicable diseases; K56.41 Fecal impaction; N20.0 Calculus of kidney; R09.02 Hypoxemia; Z82.49 Family history of ischemic heart disease and other diseases of the circulatory system; Z79.899 Other long term (current) drug therapy
CPT/HCPCS: 36415; 74018; 74177; 80048; 80053; 81001; 82962; 83690; 85007; 85025; 93005; 96361; 96374; C9113; J1815; J2212; J2270; J2405; J3486; J3490; J7030; J7060; J7120; Q9967; 99285-25; G0378; U0003-CS

== ENCOUNTER 2019-11-29 15:39 | Emergency (ER) | payer MEDICARE, MEDICAID ==
[~2019-11-29] VITALS: Ht 167.6 cm; Wt 60.4 kg
[~2019-11-29 15:39] MED LIST changes: +LUBI24CA7 PO
[2019-11-29] MEDS ORDERED: IV NORMAL SALINE 1000ML BAG 1,000 ML IV ONE (16:00)
[2019-11-29 16:11] LABS: BASO # 0.1 x10^3/uL (0.0-0.2); BASO % 0 % (0-3); EOS % 0 % (0-3); HEMATOCRIT 34.2 % (39.0-53.0); HEMOGLOBIN 11.5 g/dL (13.0-17.5); LYMPH # 0.8 x10^3/uL (1.0-4.8); LYMPH % 6 % (24-48); MEAN CORPUSCULAR HEMOGLOBIN 32 pg (25-35); MEAN CORPUSCULAR HGB CONC 34 g/dL (31-37); MEAN CORPUSCULAR VOLUME 94 fL (79-100); MONO % 8 % (0-9); NEUT % 86 % (31-73); PLATELET COUNT 244 x10^3/uL (140-400); RED BLOOD COUNT 3.64 x10^6/uL (4.30-5.70); RED CELL DISTRIBUTION WIDTH 13.5 % (11.5-14.5); WHITE BLOOD COUNT 12.8 x10^3/uL (4.0-11.0)
[2019-11-29 16:19] LABS: CALCIUM 8.2 mg/dL (8.5-10.1); CREATININE 0.9 mg/dL (0.7-1.3); GFR 103.1; POTASSIUM 3.8 mmol/L (3.5-5.1)
[2019-11-29 16:25] LABS: ALBUMIN 2.5 g/dL (3.4-5.0); ALBUMIN/GLOBULIN RATIO 0.6 (1.0-1.7); MAGNESIUM 1.6 mg/dL (1.8-2.4); TOTAL BILIRUBIN 0.4 mg/dL (0.2-1.0); TOTAL PROTEIN 6.6 g/dL (6.4-8.2)
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
[2019-11-29] MEDS ORDERED: IOHEXOL 300 MG/ML 100ML VIAL. IV ONE (16:45)
[2019-11-29] MEDS ORDERED: CONTRAST GIVEN. MC PRN (16:45)
[2019-11-29 16:52] LABS: BILIRUBIN,URINE MODERATE (NEG); CLARITY,URINE CLEAR; COLOR,URINE AMBER; NITRITE,URINE NEGATIVE (NEG); PROTEIN,URINE 30 mg/dL (NEG-TRACE)
[2019-11-29 16:57] LABS: SQUAMOUS EPITHELIAL CELL,UR FEW /LPF
[2019-11-29 16:58] LABS: % BANDS 9 % (0-9); % LYMPHS 7 % (24-48); % MONOS 9 % (0-10); % SEGS 75 % (35-66); PLT ESTIMATE ADEQUATE (ADEQUATE)
[2019-11-29 16:59] LABS: BACTERIA,URINE FEW /HPF (0-FEW); RBC,URINE >40 /HPF (0-2)
[2019-11-29 17:00] LABS: TOXIC GRANULATION SLIGHT; TOXIC VACUOLATION SLIGHT
--- NOTE | 2019-11-29 17:20 | RAD ---
Exam: CT of abdomen and pelvis with contrast INDICATION: Abdominal pain TECHNIQUE: Sequential axial images through the abdomen and pelvis obtained following the administration of 75 mL of Omni 300 IV contrast. Sagittal and coronal reformatted images were reconstructed from the axial data and reviewed. Comparisons: 11/23/2019 FINDINGS: Heart size is normal. No pericardial effusion. Small bilateral pleural effusions. Linear bandlike opacity at the lung bases likely atelectasis. Liver, spleen, pancreas, and adrenals are unremarkable. Gallbladder is distended. Kidneys demonstrate symmetric enhancement. No perinephric inflammation or hydronephrosis. No renal or ureteral calculi are identified. Bladder is decompressed not well evaluated. Prostate is not enlarged. Colon is distended. Dilatation of small bowel noted within the abdomen. No free intra-abdominal air or fluid. No obstruction. Abdominal aorta has a normal course and caliber. Abdominal vasculature is patent. No enlarged abdominal lymph nodes are identified. No suspicious osseous lesions or acute fractures. IMPRESSION: 1. Gallbladder is distended. Correlate with symptomatology to determine the need for further evaluation. 2. Persistent diffuse dilatation of large and small bowel, may relate to ileus. Exposure: One or more of the following in the visualized dose reduction techniques were utilized for this examination: 1. Automated exposure control 2. Adjustment of the MA and/or KV according to patient size 3. Use of iterative of reconstructive technique Electronically signed by: Adam Cabral MD (11/29/2019 5:17 PM) [id number]
[2019-11-29 18:15] VITALS: BP 145/81
== END 2019-11-29 18:30 | disposition home or self-care (01) ==
LOC: ER 15:39
DX: K56.7 Ileus, unspecified (principal); K21.9 Gastro-esophageal reflux disease without esophagitis; E78.00 Pure hypercholesterolemia, unspecified; E11.40 Type 2 diabetes mellitus with diabetic neuropathy, unspecified
CPT/HCPCS: 36415; 74177; 80053; 81001; 83690; 83735; 85007; 85025; 87086; 99285; J7030; Q9967

== ENCOUNTER 2020-02-21 21:15 | Inpatient (IN) | payer MEDICARE, MEDICAID ==
[~2020-02-21] VITALS: Ht 172.7 cm; Wt 68.2 kg
[~2020-02-21 21:15] MED LIST changes: -MULT1TAB69 PO; +MULT1TAB70 PO
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
[2020-02-21] MEDS ORDERED: IV NORMAL SALINE 1000ML BAG 1,000 ML IV SCH (21:30)
[2020-02-21 22:19] LABS: BASO % 0 % (0-3); EOS # 0.2 x10^3/uL (0.0-0.7); EOS % 3 % (0-3); HEMOGLOBIN 10.7 g/dL (13.0-17.5); LYMPH # 1.3 x10^3/uL (1.0-4.8); LYMPH % 21 % (24-48); MEAN CORPUSCULAR HEMOGLOBIN 30 pg (25-35); MEAN CORPUSCULAR HGB CONC 34 g/dL (31-37); MEAN CORPUSCULAR VOLUME 91 fL (79-100); MONO # 1.3 x10^3/uL (0.0-1.1); MONO % 22 % (0-9); NEUT # 3.4 x10^3/uL (1.8-7.7); NEUT % 54 % (31-73); PLATELET COUNT 193 x10^3/uL (140-400); RED BLOOD COUNT 3.53 x10^6/uL (4.30-5.70); RED CELL DISTRIBUTION WIDTH 14.2 % (11.5-14.5); WHITE BLOOD COUNT 6.2 x10^3/uL (4.0-11.0)
[2020-02-21 22:28] LABS: PROTHROMBIN TIME PATIENT 13.5 SEC (11.7-14.0)
--- NOTE | 2020-02-21 22:41 | RAD ---
Exam: Chest one view INDICATION: Short of air, recent fever TECHNIQUE: Frontal view of the chest Comparisons: 11/19/2018 FINDINGS: The cardiomediastinal silhouette and pulmonary vessels are within normal limits. The lung and pleural spaces are clear. IMPRESSION: No acute cardiopulmonary process. Electronically signed by: Adam Cabral MD (02/21/2020 10:38 PM) [id number]
[2020-02-21 22:46] LABS: % BANDS 3 % (0-9); % EOS 2 % (0-5); % LYMPHS 29 % (24-48); % MONOS 20 % (0-10); % SEGS 46 % (35-66); PLT ESTIMATE ADEQUATE (ADEQUATE)
[2020-02-21 22:48] LABS: BILIRUBIN,URINE NEGATIVE (NEG); CLARITY,URINE CLEAR; COLOR,URINE YELLOW; NITRITE,URINE NEGATIVE (NEG); PH,URINE 6.5 (<5.0-8.0); PROTEIN,URINE NEGATIVE (NEG-TRACE)
[2020-02-21 22:49] LABS: POLYCHROMASIA SLIGHT
[2020-02-21 22:51] LABS: TOXIC GRANULATION SLIGHT
[2020-02-21 23:05] LABS: RBC,URINE 20-40 /HPF (0-2)
[2020-02-21 23:06] LABS: BACTERIA,URINE 0 /HPF (0-FEW); WBC,URINE RARE /HPF (0-4)
[2020-02-21 23:07] LABS: CALCIUM 7.9 mg/dL (8.5-10.1); GFR 91.3; POTASSIUM 4.4 mmol/L (3.5-5.1)
[2020-02-21 23:12] LABS: ALBUMIN 2.5 g/dL (3.4-5.0); ALBUMIN/GLOBULIN RATIO 0.6 (1.0-1.7); TOTAL BILIRUBIN 0.3 mg/dL (0.2-1.0); TOTAL PROTEIN 6.5 g/dL (6.4-8.2)
[2020-02-22] MEDS ORDERED: CONTRAST GIVEN. MC PRN (01:15)
[2020-02-22] MEDS ORDERED: IOHEXOL 300 MG/ML 100ML VIAL. IV ONE (01:30)
--- NOTE | 2020-02-22 02:18 | RAD ---
Study: CT abdomen/pelvis with intravenous contrast Indication: Abdominal pain. Diarrhea. Comparison: 11/29/2019 Technique: Helical CT imaging performed of the abdomen and pelvis after the intravenous administration of 75 cc Omnipaque 300 contrast. Sagittal and coronal reformats were obtained. One or more of the following individualized dose reduction techniques were utilized for this examination: 1. Automated exposure control 2. Adjustment of the mA and/or kV according to patient size 3. Use of iterative reconstruction technique. Findings: Small right larger than left pleural effusions are redemonstrated. The left effusion is similar to slightly smaller. The right effusion has mildly increased. Overlying volume loss. Groundglass haziness involving the right more so than left lung bases is overall similar. Less pronounced distention of the distal esophagus. Small hiatal hernia repair calcific coronary artery disease. No newly seen hepatic parenchymal abnormality. Less distended gallbladder from the prior though the wall is mildly thickened. No newly seen abnormality of the pancreas. The spleen is within the broad range of normal for size. Unchanged adrenal glands. Unchanged cystic focus at the inferior pole the right kidney. No complex cyst or mass on either side. Punctate intrarenal stone on the left. Ectatic left renal pelvis has not significant changed. No collecting system dilatation on the right. Generalized thickening of the urinary bladder wall and the setting of prostatomegaly. Generalized colonic distention with stool and gas the degree of which has decreased. The appendix is difficult to visualize. A few small bowel loops are mildly distended but luminal caliber has significantly decreased from the prior. The stomach is not well evaluated due to underdistention and the lack of contrast. Unchanged aorta and iliofemoral system with scattered atheromatous plaque. No venous occlusion is appreciated. No newly seen lymphadenopathy. Trace amount of fluid within the deep pelvis but less from the comparison. No free air. Unchanged region of sclerosis within the posterior left iliac bone, image 68 series 3. No newly seen osseous abnormality. Impression: 1. Stool and gaseous distention of the colon but less so from 11/29/2019. The patient is mildly constipated. No findings of mechanical obstruction or perforation. 2. Less distended gallbladder from the prior but the wall is slightly thickened. This is favored on account of third spacing as opposed to cholecystitis though recommend correlation for right upper quadrant tenderness. 3. Redemonstrated punctate intrarenal stone on the left and relatively pronounced prostatomegaly. 4. Small right larger than left pleural effusions. The right pleural effusion is slightly larger but the left effusion is smaller. 5. Additional chronic observations as above. Electronically signed by: LLOYD WU MD (02/22/2020 2:16 AM) [id number]
[2020-02-22] MEDS ORDERED: ONDANSETRON PF 4 MG/2 ML VIAL. IV PRN (03:45)
--- NOTE | 2020-02-22 05:20 | EKG ---
[facility] [address] [place] [address] Test Date: 2020-02-21 Test Time: 21:45:14 Pat Name: FRIEDA HANKINS Department: Room: Gender: M [employer]: : 1955 Requested By: OLMAN CHEN Order Number: [id number] Reading MD: Measurements Intervals [place] Rate: 113 P: 64 AK: 108 QRS: 62 QRSD: 72 T: 52 QT: 312 QTc: 433 Interpretive Statements SINUS TACHYCARDIA LEFT ATRIAL ABNORMALITY ABNORMAL ECG RI6.02 Compared to ECG 02/21/2020 21:42:57 Atrial abnormality now present
[2020-02-22 06:47] VITALS: BP 115/66
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
[2020-02-22 11:00] VITALS: BP 121/66
--- NOTE | 2020-02-22 12:12 | CONS ---
DATE OF CONSULTATION: PULMONARY CONSULTATION ATTENDING PHYSICIAN: Dr. Craft. REASON FOR CONSULTATION: Pleural effusion. HISTORY OF PRESENT ILLNESS: The patient is a 64-year-old male who was brought into the hospital due to multiple days of diarrhea. There was some altered mental status. Blood pressure was low. I have been asked to see him for further evaluation of abnormal CT of the abdomen and pelvis, which showed tiny pleural effusion. I have also reviewed his CT chest from November. Has small pleural effusion at that time as well. He has no cough, no fever, no chills, no chest pains. His saturations are 97% on room air. PAST MEDICAL HISTORY: Significant for history of GERD, dyslipidemia, seizures, diabetic neuropathy. PAST SURGICAL HISTORY: No recent surgeries. ALLERGIES: None. MEDICATIONS: Reviewed as listed in the MRAD. REVIEW OF SYSTEMS: Ten-point system obtained. Pertinent positives discussed in my history of present illness, otherwise noncontributory. All systems that were negative were reviewed as well. SOCIAL HISTORY: Nonsmoker. PHYSICAL EXAMINATION: VITAL SIGNS: Reviewed, pulse ox 96% on 2 liters. NECK: Supple. LUNGS: With diminished breath sounds. CARDIOVASCULAR: Regular rate. ABDOMEN: Soft. EXTREMITIES: With no pitting edema. LABORATORY DATA: Reviewed. White cell count 6.2, hemoglobin 10.7, platelets are 193, BUN 14, creatinine 1.0. Albumin 2.5. IMPRESSION: 1. Small basilar effusion, slightly more on the right side than on the left side that was seen on November CT as well, likely related to hypoalbuminemia. Clinically, no signs of infection and he is not symptomatic. No need for any intervention. 2. Diarrhea. Workup per GI and PCP. 3. Moderate protein-calorie malnutrition. RECOMMENDATIONS: 1. Discussed with the patient and RN. At this time, the effusions are small. He has no signs of infection. No need for any intervention. 2. Improve nutritional status. 3. Monitor respiratory status. 4. Management of diarrhea per PCP and workup per GI. BRODY ROSARIO MD DR: FLORY/amol JOB#: [id number] / [id number]
[2020-02-22] MEDS ORDERED: COLC0.6T42 PO (12:57)
[2020-02-22] MEDS ORDERED: FERR240T2 PO (12:57)
[2020-02-22] MEDS ORDERED: POLY17PO29 PO (12:57)
[2020-02-22] MEDS ORDERED: FAMO20TA5 PO (12:57)
[2020-02-22] MEDS ORDERED: LOPE2TAB27 PO (12:57)
[2020-02-22] MEDS ORDERED: ONDANSETRON PF 4 MG/2 ML VIAL. IVP PRN (13:15)
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
[2020-02-22] MEDS ORDERED: ACETAMINOPHEN 500 MG TABLET PO PRN (14:00)
[2020-02-22 14:50] VITALS: BP 115/72
--- NOTE | 2020-02-22 17:19 | NUR ---
SW following. Spoke with RN and reviewed chart. Pt on room air. Pt COVID negative. Pt on oral medications. [facility]. SW to follow as needed.
[2020-02-22] MEDS: ENOXAPARIN 40 MG/0.4 ML SYRINGE. SQ SCH (17:41)
[2020-02-22 19:00] VITALS: BP 119/62
[2020-02-22] MEDS ORDERED: FAMOTIDINE 20 MG TABLET. PO SCH ×2 (21:00)
[2020-02-22 23:00] VITALS: BP 116/69
[2020-02-23 03:00] VITALS: BP 143/80
[2020-02-23 07:00] VITALS: BP 133/60
[2020-02-23] MEDS ORDERED: ASPIRIN ENTERIC COATED 81 MG TABLET.DR. PO SCH (09:00)
[2020-02-23] MEDS ORDERED: SIMVASTATIN 40 MG TABLET. PO SCH (09:00)
--- NOTE | 2020-02-23 09:03 | PDOC ---
PULMONARY PROGRESS NOTES DATE: 02/23/20 TIME: 09:02 Subjective Pt. resting on room air oxygen saturation 97% No SOA, No cough or CP no overnight concerns from nursing Vitals Vital Signs Date Time Temp Pulse Resp B/P (MAP) Pulse Ox O2 Delivery O2 Flow Rate FiO2 02/23/20 07:00 96.3 101 20 133/60 (84) 97 Room Air 96.3 General: Alert, No acute distress HEENT: Other Lungs: Clear Cardiovascular: S1, S2 Abdomen: Soft, Non-tender Extremities: No Edema Labs Laboratory Tests Test 02/21/20 21:59 02/21/20 22:07 02/21/20 22:32 Coronavirus (PCR) Not detected (Not Detected) White Blood Count 6.2 x10^3/uL (4.0-11.0) Red Blood Count 3.53 x10^6/uL (4.30-5.70) Hemoglobin 10.7 g/dL (13.0-17.5) Hematocrit 32.0 % (39.0-53.0) Mean Corpuscular Volume 91 fL (79-100) Mean Corpuscular Hemoglobin 30 pg (25-35) Mean Corpuscular Hemoglobin Concent 34 g/dL (31-37) Red Cell Distribution Width 14.2 % (11.5-14.5) Platelet Count 193 x10^3/uL (140-400) Neutrophils (%) (Auto) 54 % (31-73) Lymphocytes (%) (Auto) 21 % (24-48) Monocytes (%) (Auto) 22 % (0-9) Eosinophils (%) (Auto) 3 % (0-3) Basophils (%) (Auto) 0 % (0-3) Neutrophils # (Auto) 3.4 x10^3/uL (1.8-7.7) Lymphocytes # (Auto) 1.3 x10^3/uL (1.0-4.8) Monocytes # (Auto) 1.3 x10^3/uL (0.0-1.1) Eosinophils # (Auto) 0.2 x10^3/uL (0.0-0.7) Basophils # (Auto) 0.0 x10^3/uL (0.0-0.2) Segmented Neutrophils % 46 % (35-66) Band Neutrophils % 3 % (0-9) Lymphocytes % 29 % (24-48) Monocytes % 20 % (0-10) Eosinophils % 2 % (0-5) Toxic Granulation Slight Platelet Estimate Adequate (ADEQUATE) Polychromasia Slight Prothrombin Time 13.5 SEC (11.7-14.0) Prothromb Time International Ratio 1.1 (0.8-1.1) Sodium Level 139 mmol/L (136-145) Potassium Level 4.4 mmol/L (3.5-5.1) Chloride Level 101 mmol/L (98-107) Carbon Dioxide Level 29 mmol/L (21-32) Anion Gap 9 (6-14) Blood Urea Nitrogen 14 mg/dL (8-26) Creatinine 1.0 mg/dL (0.7-1.3) Estimated GFR (Cockcroft-Gault) 91.3 BUN/Creatinine Ratio 14 (6-20) Glucose Level 119 mg/dL (70-99) Lactic Acid Level 1.0 mmol/L (0.4-2.0) Calcium Level 7.9 mg/dL (8.5-10.1) Total Bilirubin 0.3 mg/dL (0.2-1.0) Aspartate Amino Transf (AST/SGOT) 32 U/L (15-37) Alanine Aminotransferase (ALT/SGPT) 37 U/L (16-63) Alkaline Phosphatase 73 U/L (46-116) Troponin I Quantitative < 0.017 ng/mL (0.000-0.055) Total Protein 6.5 g/dL (6.4-8.2) Albumin 2.5 g/dL (3.4-5.0) Albumin/Globulin Ratio 0.6 (1.0-1.7) Lipase 95 U/L (73-393) Urine Collection Type U cath Urine Color Yellow Urine Clarity Clear Urine pH 6.5 (<5.0-8.0) Urine Specific [place] 1.015 (1.000-1.030) Urine Protein Negative mg/dL (NEG-TRACE) Urine Glucose (UA) Negative mg/dL (NEG) Urine Ketones (Stick) Negative mg/dL (NEG) Urine Blood Moderate (NEG) Urine Nitrite Negative (NEG) Urine Bilirubin Negative (NEG) Urine Urobilinogen Dipstick 2.0 mg/dL (0.2 mg/dL) Urine Leukocyte Esterase Negative (NEG) Urine RBC 20-40 /HPF (0-2) Urine WBC Rare /HPF (0-4) Urine Transitional Epithelial Cells Occ /LPF Urine Bacteria 0 /HPF (0-FEW) Urine Mucus Slight /LPF Medications Active Scripts Medications Dose Route/Sig Max Daily Dose Days Date Category Dose Instructions Miralax (Polyethylene Glycol 3350) 17 Gm Powd.pack 1 Packet PO PRN BID PRN 2 02/22/20 Reported dissolve in water Loperamide (Loperamide Hcl) 2 Mg Tablet 1 Tab PO Q4HRS 30 02/22/20 Reported Colchicine 0.6 Mg Tablet 2 Tab PO PRN DAILY PRN 30 02/22/20 Reported Ferrous Gluconate 240 Mg Tablet 324 Mg PO DAILYWBKFT 02/22/20 Reported Famotidine 20 Mg Tablet 20 Mg PO BID 02/22/20 Reported Amitiza (Lubiprostone) 24 Mcg Capsule 24 Mcg PO BID 11/23/19 Reported Tussin (Guaifenesin) 100 Mg/5 Ml Liquid 200 Mg PO PRN Q4HRS PRN 08/28/19 Reported Diphenhydramine Hcl 25 Mg Tablet 25 Mg PO PRN DAILY PRN 08/28/19 Reported Acetaminophen 500 Mg Tablet 1,000 Mg PO PRN Q6HRS PRN 08/28/19 Reported Geodon (Ziprasidone Hcl) 40 Mg Capsule 80 Mg PO QHS 08/28/19 Reported Geodon (Ziprasidone Hcl) 40 Mg Capsule 40 Mg PO DAILYWBKFT 12/02/16 Reported Seroquel (Quetiapine Fumarate) 300 Mg Tablet 600 Mg PO HS 12/02/16 Reported Melatonin 3 Mg Tablet 1 Tab PO QHS 12/02/16 Reported Gabapentin 600 Mg Tablet 600 Mg PO TID 12/02/16 Reported [Bisacodyl] 10 MG Supp.rect 10 Mg IN PRN DAILY PRN 02/12/15 Rx Tab-A-Rachele (Multivitamin) 1 Each Tablet 1 Each PO DAILY 03/27/14 Reported Simvastatin 40 Mg Tablet 40 Mg PO DAILY 03/27/14 Reported Quetiapine Fumarate 100 Mg Tablet 100 Mg PO DAILY 03/27/14 Reported Depakote (Divalproex Sodium) 500 Mg Tablet.dr 1 Tab PO BID 03/27/14 Reported Benztropine Mesylate 1 Mg Tablet 0.5 Mg PO QHS 03/27/14 Reported Aspir-Low (Aspirin) 81 Mg Tablet. 81 Mg PO DAILY 03/27/14 Reported Comments CXR IMPRESSION: No acute cardiopulmonary process. Impression . IMPRESSION: 1. Small basilar effusion, slightly more on the right side than on the left side that was seen on November CT as well, likely related to hypoalbuminemia. Clinically, no signs of infection and he is not symptomatic. No need for any intervention. 2. Diarrhea. Workup per GI and PCP. 3. Moderate protein-calorie malnutrition. Plan . RECOMMENDATIONS: Pt. stable form pulmonary standpoint Remains on Room air Small pleural effusion, that do not require intervention COVID-19 Negative Follow GI recommendations D/W RN we will sign off at this time , please call with any further concerns or questions thank you JOHNNY RUSSELL MD Feb 23, 2020 09:02
[2020-02-23 10:14] LABS: BASO % 0 % (0-3); EOS # 0.1 x10^3/uL (0.0-0.7); EOS % 1 % (0-3); HEMATOCRIT 33.7 % (39.0-53.0); HEMOGLOBIN 11.6 g/dL (13.0-17.5); LYMPH % 11 % (24-48); MEAN CORPUSCULAR HEMOGLOBIN 31 pg (25-35); MEAN CORPUSCULAR HGB CONC 35 g/dL (31-37); MEAN CORPUSCULAR VOLUME 90 fL (79-100); MONO # 0.9 x10^3/uL (0.0-1.1); MONO % 11 % (0-9); NEUT # 6.6 x10^3/uL (1.8-7.7); NEUT % 77 % (31-73); PLATELET COUNT 292 x10^3/uL (140-400); RED BLOOD COUNT 3.76 x10^6/uL (4.30-5.70); WHITE BLOOD COUNT 8.6 x10^3/uL (4.0-11.0)
[2020-02-23 10:26] LABS: CALCIUM 8.5 mg/dL (8.5-10.1); CREATININE 0.9 mg/dL (0.7-1.3); GFR 103.1
[2020-02-23 10:38] LABS: POTASSIUM 4.2 mmol/L (3.5-5.1)
[2020-02-23 11:00] VITALS: BP 136/56
--- NOTE | 2020-02-23 11:15 | NUR ---
This RN notified Dr. Rodriguez about new consult. This RN explained that pt is COVID negative and we are awaiting clearance from him to discharge patient to fdc. Dr. Rodriguez stated he will be in to see the patient. Will continue to monitor.
--- NOTE | 2020-02-23 13:48 | PDOC ---
Date of Service: DATE: 02/23/20 TIME: 13:46 Subjective: Subjective: Doing okay, denies pain. Objective: Objective: D/w nurse - awaiting psych eval and then possible DC today. No diarrhea. Tolerating diet. Vital Signs: Vital Signs Date Time Temp Pulse Resp B/P (MAP) Pulse Ox O2 Delivery O2 Flow Rate FiO2 02/23/20 11:00 97.6 89 18 136/56 (82) 98 Room Air 97.6 Labs: Laboratory Tests Test 02/23/20 09:58 White Blood Count 8.6 x10^3/uL Red Blood Count 3.76 x10^6/uL Hemoglobin 11.6 g/dL Hematocrit 33.7 % Mean Corpuscular Volume 90 fL Mean Corpuscular Hemoglobin 31 pg Mean Corpuscular Hemoglobin Concent 35 g/dL Red Cell Distribution Width 14.0 % Platelet Count 292 x10^3/uL Neutrophils (%) (Auto) 77 % Lymphocytes (%) (Auto) 11 % Monocytes (%) (Auto) 11 % Eosinophils (%) (Auto) 1 % Basophils (%) (Auto) 0 % Neutrophils # (Auto) 6.6 x10^3/uL Lymphocytes # (Auto) 1.0 x10^3/uL Monocytes # (Auto) 0.9 x10^3/uL Eosinophils # (Auto) 0.1 x10^3/uL Basophils # (Auto) 0.0 x10^3/uL Sodium Level 136 mmol/L Potassium Level 4.2 mmol/L Chloride Level 98 mmol/L Carbon Dioxide Level 24 mmol/L Anion Gap 14 Blood Urea Nitrogen 19 mg/dL Creatinine 0.9 mg/dL Estimated GFR (Cockcroft-Gault) 103.1 Glucose Level 94 mg/dL Calcium Level 8.5 mg/dL PE: GEN: NAD LUNGS: CTAB HEART: RRR ABD: round, soft, BS+ NEURO/PSYCH: "yep!" "nope!" A/P: Diarrhea prior to admission - none here H/o constipation and recurrent pseudo-obstruction COVID negative -- Can resume normal diet from living facility. ?restart Amitiza, etc - will review w/ Dr. Alan. DC per primary. Justicifation of Admission Dx: Justifications for Admission: Justification of Admission Dx: Yes ELVIS VAZQUEZ Feb 23, 2020 13:47
--- NOTE | 2020-02-23 14:59 | NUR ---
SW following. Spoke with RN and reviewed chart. Pt to discharge home today after being seen by Dr. Rodriguez per Dr. Craft. Spoke with facility nurse Ramandeep ([phone]) who stated she is concerned that pt's constipation is related to the psychiatric medications he is taking. SW called Dr. Rodriguez who will see this patient and consider reduction in dosages. Pt to discharge home today at 1730 via transport from the [facility] per Ramandeep. Packet of clinicals ready to be sent. RN notified to call report. No further SW needs at this time.
[2020-02-23 15:00] VITALS: BP 151/60
[2020-02-23] MEDS: ENOXAPARIN 40 MG/0.4 ML SYRINGE. SQ SCH (16:00)
[2020-02-23] MEDS ORDERED: QUET300T5 PO (16:22)
--- NOTE | 2020-02-23 16:53 | DISCH ---
DISCHARGE INSTRUCTIONS Condition on Discharge Condition on Discharge: Stable Activity After Discharge Activity Instructions for Disc: No restrictions Driving Instructions after Dis: Do not drive Weight Bearing Status after Di: No restrictions Diet after Discharge Diet after Discharge: GI Soft Diet Texture: Mechanically Altered Liquid Texture: Thin Liquid Swallowing Supervision: 1 to 1 cueing Wound Incision Care Wound/Incision Care: No wound care needed Checks after Discharge Checks after discharge: Check blood sugar, ac/hs Contacting the DR. after DC Call your doctor for: If your condition worsens Follow-Up Follow up with: PCP within 1 week of discharge Follow Up With: GI if continues to have conspitation or diarrhea Treatment/Equipment after DC Adaptive Equipment Issued: None REGINA HOWADR MD Feb 23, 2020 16:53
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
--- NOTE | 2020-02-23 17:25 | NUR ---
Discharge Note: CARRIE HANKINS Discharge instructions and discharge home medications reviewed with Gely RN at [facility] and a copy given. All questions have been answered and understanding verbalized. The following instructions and handouts were given: F/U with PCP within one week, F/U with GI if problems persist. Discontinued lines and drains: Peripheral IV intact. Patient discharged to Home w/services with Serene counter caser from [facility] via Wheelchair.
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
== END 2020-02-23 17:25 | disposition home or self-care (01) | DRG 391 ==
LOC: ER 21:15 → 6 SOUTH 02-22 03:56
PROVIDERS: ADMIT Family Medicine; ATTEND Family Medicine
DX: R19.7 Diarrhea, unspecified (principal); E43 Unspecified severe protein-calorie malnutrition; J90 Pleural effusion, not elsewhere classified; E78.00 Pure hypercholesterolemia, unspecified; Z20.828 Contact with and (suspected) exposure to other viral communicable diseases; E11.40 Type 2 diabetes mellitus with diabetic neuropathy, unspecified; K21.9 Gastro-esophageal reflux disease without esophagitis; F79 Unspecified intellectual disabilities; E78.5 Hyperlipidemia, unspecified; K82.8 Other specified diseases of gallbladder; N20.0 Calculus of kidney; I10 Essential (primary) hypertension; F20.9 Schizophrenia, unspecified; N40.0 Benign prostatic hyperplasia without lower urinary tract symptoms; D53.9 Nutritional anemia, unspecified; R54 Age-related physical debility; Z68.22 Body mass index [BMI] 22.0-22.9, adult; Z74.01 Bed confinement status
CPT/HCPCS: 36415; 71045; 74177; 80048; 80053; 81001; 83605; 83690; 84484; 85007; 85025; 85610; 87040; 93005; 96360; J1650; J7030; P9612; Q9967; 99285-25; G0378; U0003-CS

== ENCOUNTER 2020-03-19 13:41 | Inpatient (IN) | payer MEDICARE, MEDICAID ==
[~2020-03-19] VITALS: Ht 172.7 cm; Wt 60.2 kg
[~2020-03-19 13:41] MED LIST changes: +COLC0.6T42 PO; +FAMO20TA5 PO; +FERR240T2 PO; +LOPE2TAB27 PO; +POLY17PO29 PO
[2020-03-19 14:32] LABS: BASO % 0 % (0-3); EOS % 0 % (0-3); HEMATOCRIT 41.3 % (39.0-53.0); HEMOGLOBIN 13.8 g/dL (13.0-17.5); LYMPH # 0.7 x10^3/uL (1.0-4.8); LYMPH % 6 % (24-48); MEAN CORPUSCULAR HEMOGLOBIN 30 pg (25-35); MEAN CORPUSCULAR HGB CONC 33 g/dL (31-37); MEAN CORPUSCULAR VOLUME 89 fL (79-100); MONO # 2.1 x10^3/uL (0.0-1.1); MONO % 17 % (0-9); NEUT # 9.3 x10^3/uL (1.8-7.7); NEUT % 77 % (31-73); PLATELET COUNT 202 x10^3/uL (140-400); RED BLOOD COUNT 4.65 x10^6/uL (4.30-5.70); RED CELL DISTRIBUTION WIDTH 14.8 % (11.5-14.5); WHITE BLOOD COUNT 12.1 x10^3/uL (4.0-11.0)
[2020-03-19 14:44] LABS: CALCIUM 9.6 mg/dL (8.5-10.1); CREATININE 1.6 mg/dL (0.7-1.3); GFR 53.1; POTASSIUM 4.4 mmol/L (3.5-5.1)
[2020-03-19 14:50] LABS: ALBUMIN 3.2 g/dL (3.4-5.0); ALBUMIN/GLOBULIN RATIO 0.6 (1.0-1.7); TOTAL BILIRUBIN 0.3 mg/dL (0.2-1.0)
[2020-03-19 15:19] LABS: % BANDS 28 % (0-9); % LYMPHS 10 % (24-48); % METAS 2 % (0-0); % MONOS 18 % (0-10); % SEGS 42 % (35-66); PLT ESTIMATE ADEQUATE (ADEQUATE)
--- NOTE | 2020-03-19 15:56 | RAD ---
PQRS Compliance Statement: One or more of the following individualized dose reduction techniques were utilized for this examination: 1. Automated exposure control 2. Adjustment of the mA and/or kV according to patient size 3. Use of iterative reconstruction technique CT ABDOMEN PELVIS WO CONTRAST Clinical Indication: Reason: abdominal pain and distention / Spl. Instructions: / History: Comparison: CT abdomen and pelvis with contrast, January 20172019 and November 29, 2019. Technique: Helical CT imaging of the abdomen and pelvis is performed without IV or oral contrast. Findings: Evaluation of solid organs and bowel is limited without oral and IV contrast, decreasing sensitivity for detection of pathology. There is trace right pleural effusion but decreased from prior study. Moderate atelectasis or scarring in the bilateral lung bases. Coronary artery disease. Cardiac size normal. The distal esophagus is distended with fluid and air. There is moderate distention of the stomach with air and fluid. These findings are new from most recent prior study but are similar to study from November. There is no gastric wall thickening. There is no intraperitoneal free air. Gallbladder is distended. Liver, spleen, pancreas, and adrenal glands are normal. Mild atherosclerotic calcification of the abdominal aorta. No hydronephrosis. Tiny nonobstructing left renal calculus. Diffuse distention of small bowel is similar to slightly worse than study from November. There is small bowel feces sign suggesting stasis. No convincing small bowel pneumatosis is identified. Distention of the transverse colon is unchanged from prior study. No colonic point of transition is definitely seen. The urinary bladder is moderately distended. Prostatomegaly redemonstrated. No pelvic free fluid is identified. No acute bone abnormality. IMPRESSION: 1. Marked dilation of small bowel is similar to slightly worse than the study from November. Small bowel obstruction or severe ileus are considerations. 2. Distention of the colon is unchanged from prior studies. A point of transition to suggest obstruction is not seen. 3. Distention of the distal esophagus and the stomach is similar to study from November, cannot exclude gastric outlet obstruction. 4. Gallbladder is distended similar to prior studies. 5. Urinary bladder is moderately distended. Redemonstrated prostatomegaly. Electronically signed by: Phu Celestin MD (03/19/2020 3:53 PM) [facility]
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
[2020-03-19] MEDS ORDERED: ONDANSETRON PF 4 MG/2 ML VIAL. IV PRN (18:00)
[2020-03-19] MEDS ORDERED: MORPHINE SULFATE 2 MG/ML VIAL. IV PRN (18:00)
[2020-03-19] MEDS: IV NORMAL SALINE 1000ML BAG 1,000 ML IV SCH ×2 (18:04→20:13)
[2020-03-19] MEDS ORDERED: MORPHINE SULFATE 2 MG/ML VIAL. IV ONE (18:30)
[2020-03-19] MEDS ORDERED: POTASSIUM CHLORIDE 10MEQ 100 ML IV SCH (20:15)
[2020-03-19] MEDS ORDERED: DOCUSATE SODIUM 100 MG CAPSULE. PO PRN (20:15)
[2020-03-19] MEDS ORDERED: MAGNESIUM SULFATE 2GM 50 ML IV SCH (20:15)
[2020-03-19] MEDS ORDERED: DEXTROSE 50% 25 GM / 50ML DISP.SYRIN. IV PRN (20:15)
[2020-03-19] MEDS ORDERED: POTASSIUM CHLORIDE 20 MEQ TABLET.ER. PO PRN (20:15)
[2020-03-19] MEDS ORDERED: ONDANSETRON PF 4 MG/2 ML VIAL. IVP PRN (20:15)
[2020-03-19] MEDS ORDERED: SENNOSIDES 8.6 MG TABLET PO PRN (20:15)
[2020-03-19] MEDS ORDERED: POTASSIUM CHLORIDE 10MEQ 100 ML IV PRN (20:15)
[2020-03-19] MEDS ORDERED: ELECTROLYTE (NON-ICU) PROTOCOL MC PRN (20:30)
[2020-03-19] MEDS ORDERED: MAGNESIUM OXIDE 400 MG TABLET PO SCH (21:00)
[2020-03-19 23:00] VITALS: BP 135/81
--- NOTE | 2020-03-20 00:48 | NUR ---
Pt. arrived on unit at 2150 by bed from ER. Patient is unable to verbalize but is alert to name. He comes from a [facility]. Call light within reach with bed in lowest setting and alarm on. Will continue to monitor. RN non-administered previous bag of IVF and morphine. Patient was not on 4th floor at this time.
[2020-03-20] MEDS ORDERED: ZIPR20CA2 PO (01:16)
[2020-03-20] MEDS ORDERED: GABA600T7 PO (01:16)
[2020-03-20] MEDS ORDERED: BENZ0.5T32 PO (01:16)
[2020-03-20] MEDS ORDERED: ZIPR40CA2 PO (01:16)
[2020-03-20 03:00] VITALS: BP 131/78
[2020-03-20 04:14] LABS: BASO % 0 % (0-3); EOS % 0 % (0-3); HEMATOCRIT 33.8 % (39.0-53.0); HEMOGLOBIN 11.3 g/dL (13.0-17.5); LYMPH # 0.7 x10^3/uL (1.0-4.8); LYMPH % 7 % (24-48); MEAN CORPUSCULAR HEMOGLOBIN 30 pg (25-35); MEAN CORPUSCULAR HGB CONC 34 g/dL (31-37); MEAN CORPUSCULAR VOLUME 89 fL (79-100); MONO # 2.4 x10^3/uL (0.0-1.1); MONO % 24 % (0-9); NEUT % 70 % (31-73); PLATELET COUNT 162 x10^3/uL (140-400); RED BLOOD COUNT 3.81 x10^6/uL (4.30-5.70); RED CELL DISTRIBUTION WIDTH 14.5 % (11.5-14.5); WHITE BLOOD COUNT 10.1 x10^3/uL (4.0-11.0)
[2020-03-20 04:35] LABS: CALCIUM 8.5 mg/dL (8.5-10.1); CREATININE 1.3 mg/dL (0.7-1.3); GFR 67.5; MAGNESIUM 2.4 mg/dL (1.8-2.4); PHOSPHORUS 3.9 mg/dL (2.6-4.7); POTASSIUM 3.8 mmol/L (3.5-5.1)
[2020-03-20 07:00] VITALS: BP 130/83
--- NOTE | 2020-03-20 09:05 | PDOC2 ---
[facility] AL[facility] 03/20/20 0905: CONSULT Date of Consult Date of Consult DATE: 03/20/20 TIME: 08:51 Reason for Consult Reason for Consult: SBO Referring Physician Referring Physician: ER Identification/Chief Complaint Chief Complaint distention Source Source: Chart review History of Present Illness Reason for Visit: Patient not able to provide any history, reports yep to all questions Here for distention, did have diarrhea last week. He has been admitted several times in past with ileus, constipation, does have hx of c diff--no abdominal surgical hx NG placed in ER and pt pulled out, pulled out IV Past Medical History Cardiovascular: HTN, Hyperlipidemia CENTRAL NERVOUS SYSTEM: Periperal neuropathy Psych: Schizophrenia, Other Endocrine: Diabetes Past Surgical History Past Surgical History: Other Family History Family History: Hypertension, Family History Unknown Social History ALCOHOL: none Drugs: None Current Problem List Problem List Problems Medical Problems: (1) Small bowel obstruction Status: Acute Current Medications Current Medications Current Medications Lorazepam (Ativan Inj) 1 mg 1X ONCE IVP Last administered on 03/19/20at 18:09; Start 03/19/20 at 18:00; Stop 03/19/20 at 18:01; Status DC Ondansetron HCl (Zofran) 4 mg PRN Q8HRS PRN IV NAUSEA/VOMITING; Start 03/19/20 at 18:00; Stop 03/20/20 at 17:59 Morphine Sulfate (Morphine Sulfate) 2 mg PRN Q2HR PRN IV PAIN; Start 03/19/20 at 18:00; Stop 03/20/20 at 17:59 Sodium Chloride 1,000 ml @ 75 mls/hr [id number] IV Last administered on 03/19/20at 18:04; Start 03/19/20 at 17:57; Stop 03/20/20 at 17:56 Morphine Sulfate (Morphine Sulfate) 2 mg 1X ONCE IV ; Start 03/19/20 at 18:30; Stop 03/19/20 at 18:31; Status DC Sennosides (Senna) 17.2 mg PRN BID PRN PO CONSTIPATION; Start 03/19/20 at 20:15 Docusate Sodium (Colace) 100 mg PRN DAILY PRN PO HARD STOOLS; Start 03/19/20 at 20:15 Ondansetron HCl (Zofran) 4 mg PRN Q6HRS PRN IVP NAUSEA/VOMITING; Start 03/19/20 at 20:15 Potassium Chloride (Klor-Con) 40 meq 1X PRN PO PER PROTOCOL; Start 03/19/20 at 20:15; Status UNV Magnesium Oxide (Magnesium Oxide) 400 mg BID PO ; Start 03/19/20 at 21:00; Stop 03/21/20 at 09:01; Status UNV Potassium Chloride/Water 100 ml @ 100 mls/hr Q1H IV ; Start 03/19/20 at 20:15; Stop 03/20/20 at 00:14; Status UNV Magnesium Sulfate 50 ml @ 25 mls/hr Q24H IV ; Start 03/19/20 at 20:15; Stop 03/21/20 at 22:14; Status UNV Potassium Chloride/Water 100 ml @ 100 mls/hr Q1H PRN IV low k; Start 03/19/20 at 20:15; Status UNV Dextrose (Dextrose 50%-Water Syringe) 12.5 gm PRN Q15MIN PRN IV SEE COMMENTS; Start 03/19/20 at 20:15 Sodium Chloride 1,000 ml @ 100 mls/hr Q10H IV ; Start 03/19/20 at 20:13 Heparin Sodium (Porcine) (Heparin Sodium) 5,000 unit Q12HR SQ ; Start 03/20/20 at 09:00 Info (Non-Icu Electrolyte Protocol) 1 ea CONT PRN PRN MC SEE COMMENTS; Start 03/19/20 at 20:30 Active Scripts Active [Bisacodyl] 10 MG Supp.rect 10 Mg KY PRN DAILY PRN Reported Geodon (Ziprasidone Hcl) 40 Mg Capsule 2 Cap PO QHS Geodon (Ziprasidone Hcl) 20 Mg Capsule 2 Cap PO QAM Gabapentin 600 Mg Tablet 600 Mg PO TID Benztropine Mesylate 0.5 Mg Tablet 0.5 Mg PO HS Seroquel (Quetiapine Fumarate) 300 Mg Tablet 1 Tab PO QHS Miralax (Polyethylene Glycol 3350) 17 Gm Powd.pack 1 Packet PO PRN BID PRN 2 Days dissolve in water Loperamide (Loperamide Hcl) 2 Mg Tablet 1 Tab PO Q4HRS 30 Days Colchicine 0.6 Mg Tablet 2 Tab PO PRN DAILY PRN 30 Days Ferrous Gluconate 240 Mg Tablet 324 Mg PO DAILYWBKFT Famotidine 20 Mg Tablet 20 Mg PO BID Tussin (Guaifenesin) 100 Mg/5 Ml Liquid 200 Mg PO PRN Q4HRS PRN Acetaminophen 500 Mg Tablet 1,000 Mg PO PRN Q6HRS PRN Melatonin 3 Mg Tablet 1 Tab PO QHS Tab-A-Rachele (Multivitamin) 1 Each Tablet 1 Each PO DAILY Simvastatin 40 Mg Tablet 40 Mg PO DAILY Depakote (Divalproex Sodium) 500 Mg Tablet. 1 Tab PO BID Aspir-Low (Aspirin) 81 Mg Tablet.dr 81 Mg PO DAILY Allergies Allergies: Coded Allergies: No Known Drug Allergies (Unverified , 03/27/14) ROS Review of System unable to obtain due to mental status Physical Exam General: Cooperative, No acute distress HEENT: Atraumatic, PERRLA Lungs: Clear to auscultation, Normal air movement Heart: Normal S1, Normal S2, Other (tachy) Abdomen: Other (distended, nontender) Extremities: No clubbing, No cyanosis Skin: No rashes, No breakdown Neuro: Normal gait, Normal speech Psych/Mental Status: Mental status NL, Mood NL MUSCULOSKELETAL: No deformity, No swelling Vitals VITALS Vital Signs Date Time Temp Pulse Resp B/P (MAP) Pulse Ox O2 Delivery O2 Flow Rate FiO2 03/20/20 07:00 97.8 112 16 130/83 (99) 96 Room Air 97.8 Labs Labs Laboratory Tests Test 03/19/20 14:17 03/20/20 03:05 03/20/20 06:25 White Blood Count 12.1 x10^3/uL (4.0-11.0) 10.1 x10^3/uL (4.0-11.0) Red Blood Count 4.65 x10^6/uL (4.30-5.70) 3.81 x10^6/uL (4.30-5.70) Hemoglobin 13.8 g/dL (13.0-17.5) 11.3 g/dL (13.0-17.5) Hematocrit 41.3 % (39.0-53.0) 33.8 % (39.0-53.0) Mean Corpuscular Volume 89 fL (79-100) 89 fL (79-100) Mean Corpuscular Hemoglobin 30 pg (25-35) 30 pg (25-35) Mean Corpuscular Hemoglobin Concent 33 g/dL (31-37) 34 g/dL (31-37) Red Cell Distribution Width 14.8 % (11.5-14.5) 14.5 % (11.5-14.5) Platelet Count 202 x10^3/uL (140-400) 162 x10^3/uL (140-400) Neutrophils (%) (Auto) 77 % (31-73) 70 % (31-73) Lymphocytes (%) (Auto) 6 % (24-48) 7 % (24-48) Monocytes (%) (Auto) 17 % (0-9) 24 % (0-9) Eosinophils (%) (Auto) 0 % (0-3) 0 % (0-3) Basophils (%) (Auto) 0 % (0-3) 0 % (0-3) Neutrophils # (Auto) 9.3 x10^3/uL (1.8-7.7) 7.0 x10^3/uL (1.8-7.7) Lymphocytes # (Auto) 0.7 x10^3/uL (1.0-4.8) 0.7 x10^3/uL (1.0-4.8) Monocytes # (Auto) 2.1 x10^3/uL (0.0-1.1) 2.4 x10^3/uL (0.0-1.1) Eosinophils # (Auto) 0.0 x10^3/uL (0.0-0.7) 0.0 x10^3/uL (0.0-0.7) Basophils # (Auto) 0.0 x10^3/uL (0.0-0.2) 0.0 x10^3/uL (0.0-0.2) Segmented Neutrophils % 42 % (35-66) Band Neutrophils % 28 % (0-9) Lymphocytes % 10 % (24-48) Monocytes % 18 % (0-10) Metamyelocytes % 2 % (0-0) Dohle Bodies Few Platelet Estimate Adequate (ADEQUATE) Prothrombin Time 14.0 SEC (11.7-14.0) Prothromb Time International Ratio 1.1 (0.8-1.1) Activated Partial Thromboplast Time 23 SEC (24-38) Sodium Level 137 mmol/L (136-145) 141 mmol/L (136-145) Potassium Level 4.4 mmol/L (3.5-5.1) 3.8 mmol/L (3.5-5.1) Chloride Level 99 mmol/L (98-107) 102 mmol/L (98-107) Carbon Dioxide Level 22 mmol/L (21-32) 28 mmol/L (21-32) Anion Gap 16 (6-14) 11 (6-14) Blood Urea Nitrogen 31 mg/dL (8-26) 41 mg/dL (8-26) Creatinine 1.6 mg/dL (0.7-1.3) 1.3 mg/dL (0.7-1.3) Estimated GFR (Cockcroft-Gault) 53.1 67.5 BUN/Creatinine Ratio 19 (6-20) Glucose Level 176 mg/dL (70-99) 109 mg/dL (70-99) Calcium Level 9.6 mg/dL (8.5-10.1) 8.5 mg/dL (8.5-10.1) Total Bilirubin 0.3 mg/dL (0.2-1.0) Aspartate Amino Transf (AST/SGOT) 13 U/L (15-37) Alanine Aminotransferase (ALT/SGPT) 9 U/L (16-63) Alkaline Phosphatase 86 U/L (46-116) Total Protein 9.0 g/dL (6.4-8.2) Albumin 3.2 g/dL (3.4-5.0) Albumin/Globulin Ratio 0.6 (1.0-1.7) Lipase 26 U/L (73-393) Phosphorus Level 3.9 mg/dL (2.6-4.7) Magnesium Level 2.4 mg/dL (1.8-2.4) Glucose (Fingerstick) 123 mg/dL (70-99) Laboratory Tests Test 03/19/20 14:17 03/20/20 03:05 03/20/20 06:25 White Blood Count 12.1 x10^3/uL (4.0-11.0) 10.1 x10^3/uL (4.0-11.0) Red Blood Count 4.65 x10^6/uL (4.30-5.70) 3.81 x10^6/uL (4.30-5.70) Hemoglobin 13.8 g/dL (13.0-17.5) 11.3 g/dL (13.0-17.5) Hematocrit 41.3 % (39.0-53.0) 33.8 % (39.0-53.0) Mean Corpuscular Volume 89 fL (79-100) 89 fL (79-100) Mean Corpuscular Hemoglobin 30 pg (25-35) 30 pg (25-35) Mean Corpuscular Hemoglobin Concent 33 g/dL (31-37) 34 g/dL (31-37) Red Cell Distribution Width 14.8 % (11.5-14.5) 14.5 % (11.5-14.5) Platelet Count 202 x10^3/uL (140-400) 162 x10^3/uL (140-400) Neutrophils (%) (Auto) 77 % (31-73) 70 % (31-73) Lymphocytes (%) (Auto) 6 % (24-48) 7 % (24-48) Monocytes (%) (Auto) 17 % (0-9) 24 % (0-9) Eosinophils (%) (Auto) 0 % (0-3) 0 % (0-3) Basophils (%) (Auto) 0 % (0-3) 0 % (0-3) Neutrophils # (Auto) 9.3 x10^3/uL (1.8-7.7) 7.0 x10^3/uL (1.8-7.7) Lymphocytes # (Auto) 0.7 x10^3/uL (1.0-4.8) 0.7 x10^3/uL (1.0-4.8) Monocytes # (Auto) 2.1 x10^3/uL (0.0-1.1) 2.4 x10^3/uL (0.0-1.1) Eosinophils # (Auto) 0.0 x10^3/uL (0.0-0.7) 0.0 x10^3/uL (0.0-0.7) Basophils # (Auto) 0.0 x10^3/uL (0.0-0.2) 0.0 x10^3/uL (0.0-0.2) Segmented Neutrophils % 42 % (35-66) Band Neutrophils % 28 % (0-9) Lymphocytes % 10 % (24-48) Monocytes % 18 % (0-10) Metamyelocytes % 2 % (0-0) Dohle Bodies Few Platelet Estimate Adequate (ADEQUATE) Prothrombin Time 14.0 SEC (11.7-14.0) Prothromb Time International Ratio 1.1 (0.8-1.1) Activated Partial Thromboplast Time 23 SEC (24-38) Sodium Level 137 mmol/L (136-145) 141 mmol/L (136-145) Potassium Level 4.4 mmol/L (3.5-5.1) 3.8 mmol/L (3.5-5.1) Chloride Level 99 mmol/L (98-107) 102 mmol/L (98-107) Carbon Dioxide Level 22 mmol/L (21-32) 28 mmol/L (21-32) Anion Gap 16 (6-14) 11 (6-14) Blood Urea Nitrogen 31 mg/dL (8-26) 41 mg/dL (8-26) Creatinine 1.6 mg/dL (0.7-1.3) 1.3 mg/dL (0.7-1.3) Estimated GFR (Cockcroft-Gault) 53.1 67.5 BUN/Creatinine Ratio 19 (6-20) Glucose Level 176 mg/dL (70-99) 109 mg/dL (70-99) Calcium Level 9.6 mg/dL (8.5-10.1) 8.5 mg/dL (8.5-10.1) Total Bilirubin 0.3 mg/dL (0.2-1.0) Aspartate Amino Transf (AST/SGOT) 13 U/L (15-37) Alanine Aminotransferase (ALT/SGPT) 9 U/L (16-63) Alkaline Phosphatase 86 U/L (46-116) Total Protein 9.0 g/dL (6.4-8.2) Albumin 3.2 g/dL (3.4-5.0) Albumin/Globulin Ratio 0.6 (1.0-1.7) Lipase 26 U/L (73-393) Phosphorus Level 3.9 mg/dL (2.6-4.7) Magnesium Level 2.4 mg/dL (1.8-2.4) Glucose (Fingerstick) 123 mg/dL (70-99) Assessment/Plan Assessment/Plan sbo vs ileus vs pseudo-obstruction vs constipation long standing hx of re occurrence--he did pull NG out would rec NG, SBFT however pulled NG--will check abdominal films this AM MICHEL ADKINS MD 03/20/20 1641: CONSULT Assessment/Plan Assessment/Plan Pt seen and examined. Agree with Ms. Alvarez's note Pt verbal, but difficult to obtain hx abd soft, some distention appreciate will attempt conservative measures and avoid surgery. Thanks for consult! FRANC ALVAREZ APRN Mar 20, 2020 09:05 MICHEL ADKINS MD Mar 20, 2020 16:41
[2020-03-20] MEDS: IV NORMAL SALINE 1000ML BAG 1,000 ML IV SCH ×4 (10:28→22:28)
--- NOTE | 2020-03-20 10:44 | NUR ---
SW following. Discussed with RN, pt from [facility] (Ramandeep [phone]), room air, NPO. PT/OT ordered. Surgery following - pt pulled out NG tube which was placed in the ER. JAMIL verified with Ramandeep at [facility] - pt does NOT need a COVID test to return to the correction. JAMIL will continue to follow. Addendum: 03/20/20 at 1233 by LISS NEGRON Ramandeep from [facility] contacted JAMIL back to advise she was wrong and patient DOES need a COVID test prior to return. RN notified.
[2020-03-20 11:00] VITALS: BP 132/82
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
[2020-03-20] MEDS: HEPARIN for SUB-Q USE 5,000 UNIT/ML VIAL. SQ SCH ×2 (11:32→21:50)
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
[2020-03-20] MEDS ORDERED: METHYLNALTREXONE 12 MG/0.6 ML VIAL. SQ ONE (11:45)
[2020-03-20] MEDS ORDERED: BISACODYL 10 MG SUPP.RECT. PR ONE (11:45)
--- NOTE | 2020-03-20 12:52 | RAD ---
Examination: ACUTE ABDOMEN SERIES History: Reason: sbo Comparison/Correlation: 03/19/2020 CT abdomen and pelvis without contrast Findings: Upright frontal view of the chest obtained with portable technique. Supine and upright views of the abdomen were acquired. Right basilar discoid atelectasis is minimal. Multiple distended loops of small bowel noted with fluid levels. No extraluminal gas. Gaseous distention of the colon also is present but mild. Impression: Decreased small bowel distention since CT exam of the previous day. Electronically signed by: Austin Mitchell MD (03/20/2020 12:49 PM) [id number]
[2020-03-20 15:00] VITALS: BP 142/80
--- NOTE | 2020-03-20 15:36 | RAD ---
Examination: KUB History: Reason: NG verification of placement / Spl. Instructions: / History: Comparison/Correlation: 11/23/2019 Findings: Portable supine frontal views of the abdomen were obtained. Left medial basilar atelectasis is present. Enteric tube terminates 3 cm past the expected level of the gastroesophageal junction. Mild gaseous distention of bowel noted. Impression: Enteric tube terminates slightly proximal to the gastroesophageal junction. Consider further advancement if clinically desired. Gaseous distention of bowel is again seen and may be slightly improved. Medial left basilar atelectasis and interval. Electronically signed by: Austin Mitchell MD (03/20/2020 3:33 PM) [id number]
--- NOTE | 2020-03-20 16:38 | RAD ---
KUB Clinical Indication: Reason: Advancement of NG tube, need verification of placement / Comparison: KUB, earlier same day, 1514 hours. Findings: Enteric tube has been advanced, the tip and side-port are in the proximal stomach. Gaseous distention of bowel is unchanged. No organomegaly. Bones are stable. IMPRESSION: Enteric tube in appropriate position in the stomach. Electronically signed by: Phu Celestin MD (03/20/2020 4:35 PM) [facility]
--- NOTE | 2020-03-20 18:00 | NUR ---
pt pulled NG tube out at 1730, notified
[2020-03-20 19:00] VITALS: BP 112/61
[2020-03-20] MEDS: VALPROIC ACID (AS SODIUM SALT) 500 MG in IV DEXTROSE 5% 50 ML IV SCH (21:39)
[2020-03-20 23:00] VITALS: BP 111/66
[2020-03-21 03:00] VITALS: BP 118/73
[2020-03-21 07:00] VITALS: BP 128/76
[2020-03-21] MEDS: IV NORMAL SALINE 1000ML BAG 1,000 ML IV SCH ×2 (07:52→22:13)
[2020-03-21] MEDS: VALPROIC ACID (AS SODIUM SALT) 500 MG in IV DEXTROSE 5% 50 ML IV SCH ×2 (07:53→20:09)
[2020-03-21] MEDS: HEPARIN for SUB-Q USE 5,000 UNIT/ML VIAL. SQ SCH ×2 (07:57→21:16)
--- NOTE | 2020-03-21 10:11 | PDOC ---
SURGICAL PROGRESS NOTE DATE: 03/21/20 TIME: 10:09 Subjective just says yep to all questions d/w nurse + stool yesterday, no emesis pulled NG out again yesterday Vital Signs Vital Signs Date Time Temp Pulse Resp B/P (MAP) Pulse Ox O2 Delivery O2 Flow Rate FiO2 03/21/20 08:00 Room Air 03/21/20 07:00 98.0 104 18 128/76 (93) 92 98.0 I&O Intake and Output 03/21/20 07:00 Intake Total 1000 ml Output Total 125 ml Balance 875 ml Intake IV Total 1000 ml Output Gastric Drainage Total 125 ml # Voids 3 General: Cooperative, No acute distress Abdomen: Soft, Other (distended, nontender ) Labs Laboratory Tests Test 03/19/20 14:17 03/20/20 03:05 03/20/20 06:25 White Blood Count 12.1 x10^3/uL (4.0-11.0) 10.1 x10^3/uL (4.0-11.0) Red Blood Count 4.65 x10^6/uL (4.30-5.70) 3.81 x10^6/uL (4.30-5.70) Hemoglobin 13.8 g/dL (13.0-17.5) 11.3 g/dL (13.0-17.5) Hematocrit 41.3 % (39.0-53.0) 33.8 % (39.0-53.0) Mean Corpuscular Volume 89 fL (79-100) 89 fL (79-100) Mean Corpuscular Hemoglobin 30 pg (25-35) 30 pg (25-35) Mean Corpuscular Hemoglobin Concent 33 g/dL (31-37) 34 g/dL (31-37) Red Cell Distribution Width 14.8 % (11.5-14.5) 14.5 % (11.5-14.5) Platelet Count 202 x10^3/uL (140-400) 162 x10^3/uL (140-400) Neutrophils (%) (Auto) 77 % (31-73) 70 % (31-73) Lymphocytes (%) (Auto) 6 % (24-48) 7 % (24-48) Monocytes (%) (Auto) 17 % (0-9) 24 % (0-9) Eosinophils (%) (Auto) 0 % (0-3) 0 % (0-3) Basophils (%) (Auto) 0 % (0-3) 0 % (0-3) Neutrophils # (Auto) 9.3 x10^3/uL (1.8-7.7) 7.0 x10^3/uL (1.8-7.7) Lymphocytes # (Auto) 0.7 x10^3/uL (1.0-4.8) 0.7 x10^3/uL (1.0-4.8) Monocytes # (Auto) 2.1 x10^3/uL (0.0-1.1) 2.4 x10^3/uL (0.0-1.1) Eosinophils # (Auto) 0.0 x10^3/uL (0.0-0.7) 0.0 x10^3/uL (0.0-0.7) Basophils # (Auto) 0.0 x10^3/uL (0.0-0.2) 0.0 x10^3/uL (0.0-0.2) Segmented Neutrophils % 42 % (35-66) Band Neutrophils % 28 % (0-9) Lymphocytes % 10 % (24-48) Monocytes % 18 % (0-10) Metamyelocytes % 2 % (0-0) Dohle Bodies Few Platelet Estimate Adequate (ADEQUATE) Prothrombin Time 14.0 SEC (11.7-14.0) Prothromb Time International Ratio 1.1 (0.8-1.1) Activated Partial Thromboplast Time 23 SEC (24-38) Sodium Level 137 mmol/L (136-145) 141 mmol/L (136-145) Potassium Level 4.4 mmol/L (3.5-5.1) 3.8 mmol/L (3.5-5.1) Chloride Level 99 mmol/L (98-107) 102 mmol/L (98-107) Carbon Dioxide Level 22 mmol/L (21-32) 28 mmol/L (21-32) Anion Gap 16 (6-14) 11 (6-14) Blood Urea Nitrogen 31 mg/dL (8-26) 41 mg/dL (8-26) Creatinine 1.6 mg/dL (0.7-1.3) 1.3 mg/dL (0.7-1.3) Estimated GFR (Cockcroft-Gault) 53.1 67.5 BUN/Creatinine Ratio 19 (6-20) Glucose Level 176 mg/dL (70-99) 109 mg/dL (70-99) Calcium Level 9.6 mg/dL (8.5-10.1) 8.5 mg/dL (8.5-10.1) Total Bilirubin 0.3 mg/dL (0.2-1.0) Aspartate Amino Transf (AST/SGOT) 13 U/L (15-37) Alanine Aminotransferase (ALT/SGPT) 9 U/L (16-63) Alkaline Phosphatase 86 U/L (46-116) Total Protein 9.0 g/dL (6.4-8.2) Albumin 3.2 g/dL (3.4-5.0) Albumin/Globulin Ratio 0.6 (1.0-1.7) Lipase 26 U/L (73-393) Phosphorus Level 3.9 mg/dL (2.6-4.7) Magnesium Level 2.4 mg/dL (1.8-2.4) Glucose (Fingerstick) 123 mg/dL (70-99) Problem List Problems Medical Problems: (1) Small bowel obstruction Status: Acute Assessment/Plan await improved bowel difficult to manage when pulls nG out Justicifation of Admission Dx: Justifications for Admission: Justification of Admission Dx: Yes FRANC ALVAREZ APRN Mar 21, 2020 10:11
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
[2020-03-21 11:00] VITALS: BP 120/72
--- NOTE | 2020-03-21 12:02 | NUR ---
SW following. Discussed with RN, pt really wanting to eat. Had NG tube last night, however pt pulled it out. COVID-19 pending per care home protocol. SW will continue to follow.
--- NOTE | 2020-03-21 13:19 | PDOC ---
[facility] [facility] PROGRESS NOTE Date of Service DOS: DATE: 03/21/20 TIME: 13:15 Chief Complaint Chief Complaint Acute abdominal distention due to SBO versus pseudoobstruction versus i leuswould also consider a differential of SIBO or blind loop syndrome Appreciate GI and surgery recommendationswe will attempt to replace NG tube and perform small bowel follow-through series. We will wait 1 more day before restarting diet Serial abdominal exams Will attempt to replace NG tube Lovenox for DVT prophylaxis Protonix GI prophylaxis Keep n.p.o. Full code Discussed with RN and SW Disposition pending GI and surgical evaluations Surrogate decision maker is oscar, [facility] History of Present Illness History of Present Illness 64 year old male who was brought here from [facility] due to abdominal distention suspect obstruction. Per report, staff said patient had diarrhea on Wednesday, and then today his belly become distended so they sent him here for evaluation. Patient could not provide any information. Patient seen and examined this morning who is unable to provide much detail of his symptoms. Patient has been admitted in the past several times for the same reason. NG tube was placed in the ED yesterday. However, NG tube and IV was pulled out. 03/21/2020 No acute events overnight. Patient has pulled out his NG tube x2. Abdominal distention has improved after stooling. Patient is voicing that he is hungry. No nausea or vomiting. Patient's chart, labs, images were reviewed and discussed with RN Vitals/I&O Vitals/I&O: Vital Signs Date Time Temp Pulse Resp B/P (MAP) Pulse Ox O2 Delivery O2 Flow Rate FiO2 03/21/20 11:00 98.0 108 16 120/72 (88) 93 Room Air 98.0 I & O 03/20/20 03/20/20 03/21/20 15:00 23:00 07:00 Intake Total 1000 ml Output Total 125 ml Balance 875 ml Physical Exam Physical Exam: GEN: No apparent distress. Alert and oriented HEENT: Normal cephalic, atraumatic, external auditory canals are patent NECK: Supple, no JVD, no thyromegaly was noted LUNGS: Bilateral clear HEART: RRR, S1, S2 present. Peripheral pulses intact, no obvious murmurs noted ABDOMEN: Soft, nontender. Positive bowel sounds, no organomegaly, normal bowel sounds EXTREMITIES: Without clubbing, cyanosis, or edema. Pedal pulses intact. Negative Homans sign General: Cooperative, No acute distress Heart: Normal S1, Normal S2, Other (tachy) Lungs: Clear Abdomen: Soft, Other (distended, nontender ) Extremities: No clubbing, No cyanosis Skin: No rashes, No breakdown Assessment and Plan Assessmemt and Plan Problems Medical Problems: (1) Small bowel obstruction Status: Acute Comment Review of Relevant I have reviewed the following items freddie (where applicable) has been applied. Medications: Current Medications Medications (Trade) Dose Ordered Sig/Ric Route PRN Reason Start Time Stop Time Status Last Admin Dose Admin Valproic Acid 500 mg/Dextrose 55 ml @ 55 mls/hr Q12HR IV 03/20/20 21:00 03/21/20 07:53 Justifications for Admission Abdominal Pain Indications Is patient in severe pain?: Yes Justification for admission: Patient has severe pain that requires (parenteral analgesic-please state analgesics and route) at least every 4 hours necessitating inpatient level of care. Is NPO status required?: Yes Justification for admission: Patient may require to be NPO for greater 24hours making it medically necessary to manage patient as inpatient. Other Justification REGINA HOWARD MD Mar 21, 2020 13:19
[2020-03-21 15:00] VITALS: BP 122/70
[2020-03-21 19:00] VITALS: BP 139/82
[2020-03-21] MEDS: ZIPRASIDONE IM 20 MG VIAL. IM SCH (22:08)
--- NOTE | 2020-03-21 22:17 | NUR ---
patient started to be verbally aggressive and combative towards staff, Dr Keen contacted and gave update, pt has been off his home meds since admission, new order received.
[2020-03-21 23:00] VITALS: BP 130/78
[2020-03-22 03:00] VITALS: BP 110/70
[2020-03-22] MEDS: IV NORMAL SALINE 1000ML BAG 1,000 ML IV SCH ×2 (06:41→16:51)
[2020-03-22 07:00] VITALS: BP 129/74
[2020-03-22] MEDS: VALPROIC ACID (AS SODIUM SALT) 500 MG in IV DEXTROSE 5% 50 ML IV SCH ×2 (07:35→21:01)
[2020-03-22] MEDS: ZIPRASIDONE IM 20 MG VIAL. IM SCH ×2 (07:36→21:05)
[2020-03-22] MEDS: HEPARIN for SUB-Q USE 5,000 UNIT/ML VIAL. SQ SCH ×2 (07:41→21:14)
--- NOTE | 2020-03-22 09:56 | PDOC ---
FRANC ALVAREZ APRN 03/22/20 0956: SURGICAL PROGRESS NOTE DATE: 03/22/20 TIME: 09:53 Subjective answers yep to all questions last bowel movement 03/20 Vital Signs Vital Signs Date Time Temp Pulse Resp B/P (MAP) Pulse Ox O2 Delivery O2 Flow Rate FiO2 03/22/20 08:00 Room Air 03/22/20 07:00 98.0 94 16 129/74 (92) 98 98.0 General: Cooperative, No acute distress Abdomen: Soft, Other (distended ) Labs Laboratory Tests Test 03/20/20 15:32 Coronavirus (PCR) Not detected (Not Detected) Problem List Problems Medical Problems: (1) Small bowel obstruction Status: Acute Assessment/Plan difficult situation, chronic issues, however will not keep NG , IV ect in--abdomen exam seems about the same as has been last few days worry if SBFT without NG , aspiration risk high Justicifation of Admission Dx: Justifications for Admission: Justification of Admission Dx: Yes MICHEL ADKINS MD 03/22/20 1702: SURGICAL PROGRESS NOTE Assessment/Plan Pt seen and examined. Agree with Ms. Alvarez's note Pt appears comfortable abd soft, ND, NTTP cont supportive care, no surgical plans. Hopefully will improve with supportive care. FRANC ALVAREZ APRN Mar 22, 2020 09:56 MICHEL ADKINS MD Mar 22, 2020 17:02
[2020-03-22 11:00] VITALS: BP 132/78
--- NOTE | 2020-03-22 11:42 | NUR ---
SW following. Discussed with RN, pt sill NPO, room air, COVID-19 negative. From chart, looks as though pt is needing a SBFT, however pt will not keep the NG tube in. Surgery note stating SBFT without NG tube, aspiration risk high. SW will continue to follow.
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
--- NOTE | 2020-03-22 14:06 | PDOC ---
[employer] [facility] PROGRESS NOTE Date of Service DOS: DATE: 03/22/20 TIME: 14:04 Chief Complaint Chief Complaint Acute abdominal distention due to ileus with unclear etiology DANTE due to vasomotor nephropathy Intellectual disability Appreciate GI and surgery recommendationsawaiting improved bowel function bef ore restarting diet Serial abdominal exams Will attempt to replace NG tube Lovenox for DVT prophylaxis Protonix GI prophylaxis Keep n.p.o. Full code Discussed with RN and SW Disposition pending GI and surgical evaluations Surrogate decision maker is oscar, [facility] History of Present Illness History of Present Illness 64 year old male who was brought here from [facility] due to abdominal distention suspect obstruction. Per report, staff said patient had diarrhea on Wednesday, and then today his belly become distended so they sent him here for evaluation. Patient could not provide any information. Patient seen and examined this morning who is unable to provide much detail of his symptoms. Patient has been admitted in the past several times for the same reason. NG tube was placed in the ED yesterday. However, NG tube and IV was pulled out. 03/21/2020 No acute events overnight. Patient has pulled out his NG tube x2. Abdominal distention has improved after stooling. Patient is voicing that he is hungry. No nausea or vomiting. Patient's chart, labs, images were reviewed and discussed with RN 03/22/2020 No major events overnight. Patient has no more stooling at this time. No nausea vomiting reported. Patient continues to be minimally verbal with restricted response to questioning about his symptoms. Patient's chart, labs, images were reviewed and discussed with RN Vitals/I&O Vitals/I&O: Vital Signs Date Time Temp Pulse Resp B/P (MAP) Pulse Ox O2 Delivery O2 Flow Rate FiO2 03/22/20 11:00 97.9 86 16 132/78 (96) 98 Room Air 97.9 Physical Exam Physical Exam: GEN: No apparent distress. Alert and oriented HEENT: Normal cephalic, atraumatic, external auditory canals are patent NECK: Supple, no JVD, no thyromegaly was noted LUNGS: Bilateral clear HEART: RRR, S1, S2 present. Peripheral pulses intact, no obvious murmurs noted ABDOMEN: Soft, nontender. Positive bowel sounds, no organomegaly, normal bowel sounds EXTREMITIES: Without clubbing, cyanosis, or edema. Pedal pulses intact. Negative Homans sign General: Cooperative, No acute distress Heart: Normal S1, Normal S2, Other (tachy) Lungs: Clear Abdomen: Soft, Other (distended ) Extremities: No clubbing, No cyanosis Skin: No rashes, No breakdown Assessment and Plan Assessmemt and Plan Problems Medical Problems: (1) Small bowel obstruction Status: Acute Comment Review of Relevant I have reviewed the following items freddie (where applicable) has been applied. Medications: Current Medications Medications (Trade) Dose Ordered Sig/Ric Route PRN Reason Start Time Stop Time Status Last Admin Dose Admin Ziprasidone (Geodon Im) 20 mg BID IM 03/21/20 22:00 03/22/20 07:36 Justifications for Admission Abdominal Pain Indications Is patient in severe pain?: Yes Justification for admission: Patient has severe pain that requires (parenteral analgesic-please state analgesics and route) at least every 4 hours necessitating inpatient level of care. Is NPO status required?: Yes Justification for admission: Patient may require to be NPO for greater 24hours making it medically necessary to manage patient as inpatient. Other Justification REGINA HOWARD MD Mar 22, 2020 14:06
[2020-03-22 15:00] VITALS: BP 120/68
[2020-03-22 19:20] VITALS: BP 131/78
[2020-03-22 23:09] VITALS: BP 147/80
[2020-03-23] MEDS: IV NORMAL SALINE 1000ML BAG 1,000 ML IV SCH ×2 (03:38→15:44)
[2020-03-23 03:45] VITALS: BP 143/80
[2020-03-23 07:00] VITALS: BP 119/75
--- NOTE | 2020-03-23 09:27 | PDOC ---
SURGICAL PROGRESS NOTE DATE: 03/23/20 TIME: 09:26 Subjective Patient awake and alert denies having passed any stool or flatus denies any abdominal pain or nausea Vital Signs Vital Signs Date Time Temp Pulse Resp B/P (MAP) Pulse Ox O2 Delivery O2 Flow Rate FiO2 03/23/20 07:00 97.7 83 20 119/75 (90) 95 Room Air 97.7 I&O Intake and Output 03/23/20 07:00 Intake Total 700 ml Balance 700 ml Intake Oral 700 ml # Voids 7 General: Alert, Oriented X3, Cooperative, No acute distress Abdomen: Normal bowel sounds, Soft, No tenderness Labs Laboratory Tests Test 03/23/20 00:13 03/23/20 06:32 Glucose (Fingerstick) 101 mg/dL (70-99) 174 mg/dL (70-99) Laboratory Tests Test 03/23/20 00:13 03/23/20 06:32 Glucose (Fingerstick) 101 mg/dL (70-99) 174 mg/dL (70-99) Problem List Problems Medical Problems: (1) Small bowel obstruction Status: Acute Assessment/Plan Small bowel obstruction versus constipation patient appears to be comfortable continue conservative therapy Justicifation of Admission Dx: Justifications for Admission: Justification of Admission Dx: Yes TRACEY GARCÍA MD Mar 23, 2020 09:27
[2020-03-23] MEDS: VALPROIC ACID (AS SODIUM SALT) 500 MG in IV DEXTROSE 5% 50 ML IV SCH ×2 (10:17→21:26)
[2020-03-23] MEDS: HEPARIN for SUB-Q USE 5,000 UNIT/ML VIAL. SQ SCH ×2 (10:18→21:24)
[2020-03-23] MEDS: ZIPRASIDONE IM 20 MG VIAL. IM SCH ×2 (10:18→21:15)
[2020-03-23 10:53] VITALS: BP 115/72
--- NOTE | 2020-03-23 12:19 | PDOC ---
G I PROGRESS NOTE Subjective "OK" Tolerating clears. Objective Staff report no N, V. No stool charted since 03/20. Physical Exam Lungs clear. RRR Abdomen soft, not distended. Review of Relevant I have reviewed the following items freddie (where applicable) has been applied. Labs Laboratory Tests Test 03/23/20 00:13 03/23/20 06:32 03/23/20 11:26 Glucose (Fingerstick) 101 mg/dL (70-99) 174 mg/dL (70-99) 137 mg/dL (70-99) Laboratory Tests Test 03/23/20 00:13 03/23/20 06:32 03/23/20 11:26 Glucose (Fingerstick) 101 mg/dL (70-99) 174 mg/dL (70-99) 137 mg/dL (70-99) Vitals/I & O Vital Sign - Last 24 Hours 03/22/20 03/22/20 03/22/20 03/22/20 15:00 19:20 20:10 23:09 Temp 98.2 97.9 97.7 98.2 97.9 97.7 Pulse 82 89 92 Resp 16 16 17 B/P (MAP) 120/68 (85) 131/78 (95) 147/80 (102) Pulse Ox 97 92 94 O2 Delivery Room Air Room Air Room Air Room Air 03/23/20 03/23/20 03/23/20 03:45 07:00 10:53 Temp 97.9 97.7 97.8 97.9 97.7 97.8 Pulse 78 83 85 Resp 17 20 20 B/P (MAP) 143/80 (101) 119/75 (90) 115/72 (86) Pulse Ox 94 95 95 O2 Delivery Room Air Room Air Room Air Intake and Output 03/22/20 03/22/20 03/23/20 15:00 23:00 07:00 Intake Total 300 ml 400 ml Balance 300 ml 400 ml Problem List Problems Medical Problems: (1) Small bowel obstruction Status: Acute Assessment Pseudoobstruction, appears stable though hasn't stooled for a few days. Plan of Care Note Try to re-introduce bowel regimen. Diet to full liquids. Justicifation of Admission Dx: Justifications for Admission: Justification of Admission Dx: Yes FRIEDA VILLASEÑOR MD Mar 23, 2020 12:19
[2020-03-23 14:50] VITALS: BP 118/76
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
[2020-03-23] MEDS ORDERED: BISACODYL 10 MG SUPP.RECT. PR PRN (16:00)
[2020-03-23] MEDS: LUBIPROSTONE 24 MCG CAPSULE PO SCH (17:50)
[2020-03-23 19:00] VITALS: BP 105/84
[2020-03-23 23:00] VITALS: BP 129/75
[2020-03-24] MEDS: IV NORMAL SALINE 1000ML BAG 1,000 ML IV SCH ×3 (00:13→15:41)
[2020-03-24 03:00] VITALS: BP 134/84
[2020-03-24 07:00] VITALS: BP 104/57
[2020-03-24 08:21] LABS: BASO % 0 % (0-3); EOS # 0.1 x10^3/uL (0.0-0.7); EOS % 1 % (0-3); HEMATOCRIT 32.7 % (39.0-53.0); HEMOGLOBIN 11.1 g/dL (13.0-17.5); LYMPH # 1.1 x10^3/uL (1.0-4.8); LYMPH % 18 % (24-48); MEAN CORPUSCULAR HEMOGLOBIN 30 pg (25-35); MEAN CORPUSCULAR HGB CONC 34 g/dL (31-37); MEAN CORPUSCULAR VOLUME 88 fL (79-100); MONO # 0.6 x10^3/uL (0.0-1.1); MONO % 9 % (0-9); NEUT # 4.7 x10^3/uL (1.8-7.7); NEUT % 72 % (31-73); PLATELET COUNT 222 x10^3/uL (140-400); RED BLOOD COUNT 3.72 x10^6/uL (4.30-5.70); RED CELL DISTRIBUTION WIDTH 14.7 % (11.5-14.5); WHITE BLOOD COUNT 6.5 x10^3/uL (4.0-11.0)
[2020-03-24 08:34] LABS: ALBUMIN 2.3 g/dL (3.4-5.0); ALBUMIN/GLOBULIN RATIO 0.6 (1.0-1.7); CALCIUM 8.2 mg/dL (8.5-10.1); CREATININE 0.7 mg/dL (0.7-1.3); GFR 137.8; POTASSIUM 3.8 mmol/L (3.5-5.1); TOTAL BILIRUBIN 0.4 mg/dL (0.2-1.0); TOTAL PROTEIN 6.2 g/dL (6.4-8.2)
--- NOTE | 2020-03-24 09:27 | PDOC ---
SURGICAL PROGRESS NOTE DATE: 03/24/20 TIME: 09:26 Subjective Patient tolerated diet this morning he states he had a bowel movement Vital Signs Vital Signs Date Time Temp Pulse Resp B/P (MAP) Pulse Ox O2 Delivery O2 Flow Rate FiO2 03/24/20 07:00 98.4 85 18 104/57 (73) 94 Room Air 98.4 I&O Intake and Output 03/24/20 06:59 Intake Total 750 ml Output Total 1050 ml Balance -300 ml Intake Oral 750 ml Output Urine Total 1050 ml # Voids 4 PATIENT HAS A PEREZ: No General: Alert, Cooperative, No acute distress Abdomen: Normal bowel sounds, Soft, No tenderness Labs Laboratory Tests Test 03/23/20 00:13 03/23/20 06:32 03/23/20 11:26 03/23/20 17:42 Glucose (Fingerstick) 101 mg/dL (70-99) 174 mg/dL (70-99) 137 mg/dL (70-99) 129 mg/dL (70-99) Test 03/24/20 00:20 03/24/20 06:35 03/24/20 07:15 Glucose (Fingerstick) 97 mg/dL (70-99) 99 mg/dL (70-99) White Blood Count 6.5 x10^3/uL (4.0-11.0) Red Blood Count 3.72 x10^6/uL (4.30-5.70) Hemoglobin 11.1 g/dL (13.0-17.5) Hematocrit 32.7 % (39.0-53.0) Mean Corpuscular Volume 88 fL (79-100) Mean Corpuscular Hemoglobin 30 pg (25-35) Mean Corpuscular Hemoglobin Concent 34 g/dL (31-37) Red Cell Distribution Width 14.7 % (11.5-14.5) Platelet Count 222 x10^3/uL (140-400) Neutrophils (%) (Auto) 72 % (31-73) Lymphocytes (%) (Auto) 18 % (24-48) Monocytes (%) (Auto) 9 % (0-9) Eosinophils (%) (Auto) 1 % (0-3) Basophils (%) (Auto) 0 % (0-3) Neutrophils # (Auto) 4.7 x10^3/uL (1.8-7.7) Lymphocytes # (Auto) 1.1 x10^3/uL (1.0-4.8) Monocytes # (Auto) 0.6 x10^3/uL (0.0-1.1) Eosinophils # (Auto) 0.1 x10^3/uL (0.0-0.7) Basophils # (Auto) 0.0 x10^3/uL (0.0-0.2) Sodium Level 141 mmol/L (136-145) Potassium Level 3.8 mmol/L (3.5-5.1) Chloride Level 104 mmol/L (98-107) Carbon Dioxide Level 31 mmol/L (21-32) Anion Gap 6 (6-14) Blood Urea Nitrogen 7 mg/dL (8-26) Creatinine 0.7 mg/dL (0.7-1.3) Estimated GFR (Cockcroft-Gault) 137.8 BUN/Creatinine Ratio 10 (6-20) Glucose Level 100 mg/dL (70-99) Calcium Level 8.2 mg/dL (8.5-10.1) Total Bilirubin 0.4 mg/dL (0.2-1.0) Aspartate Amino Transf (AST/SGOT) 32 U/L (15-37) Alanine Aminotransferase (ALT/SGPT) 26 U/L (16-63) Alkaline Phosphatase 65 U/L (46-116) Total Protein 6.2 g/dL (6.4-8.2) Albumin 2.3 g/dL (3.4-5.0) Albumin/Globulin Ratio 0.6 (1.0-1.7) Thyroid Stimulating Hormone (TSH) 0.635 uIU/mL (0.358-3.74) Laboratory Tests Test 03/23/20 11:26 03/23/20 17:42 03/24/20 00:20 03/24/20 06:35 Glucose (Fingerstick) 137 mg/dL (70-99) 129 mg/dL (70-99) 97 mg/dL (70-99) 99 mg/dL (70-99) Test 03/24/20 07:15 White Blood Count 6.5 x10^3/uL (4.0-11.0) Red Blood Count 3.72 x10^6/uL (4.30-5.70) Hemoglobin 11.1 g/dL (13.0-17.5) Hematocrit 32.7 % (39.0-53.0) Mean Corpuscular Volume 88 fL (79-100) Mean Corpuscular Hemoglobin 30 pg (25-35) Mean Corpuscular Hemoglobin Concent 34 g/dL (31-37) Red Cell Distribution Width 14.7 % (11.5-14.5) Platelet Count 222 x10^3/uL (140-400) Neutrophils (%) (Auto) 72 % (31-73) Lymphocytes (%) (Auto) 18 % (24-48) Monocytes (%) (Auto) 9 % (0-9) Eosinophils (%) (Auto) 1 % (0-3) Basophils (%) (Auto) 0 % (0-3) Neutrophils # (Auto) 4.7 x10^3/uL (1.8-7.7) Lymphocytes # (Auto) 1.1 x10^3/uL (1.0-4.8) Monocytes # (Auto) 0.6 x10^3/uL (0.0-1.1) Eosinophils # (Auto) 0.1 x10^3/uL (0.0-0.7) Basophils # (Auto) 0.0 x10^3/uL (0.0-0.2) Sodium Level 141 mmol/L (136-145) Potassium Level 3.8 mmol/L (3.5-5.1) Chloride Level 104 mmol/L (98-107) Carbon Dioxide Level 31 mmol/L (21-32) Anion Gap 6 (6-14) Blood Urea Nitrogen 7 mg/dL (8-26) Creatinine 0.7 mg/dL (0.7-1.3) Estimated GFR (Cockcroft-Gault) 137.8 BUN/Creatinine Ratio 10 (6-20) Glucose Level 100 mg/dL (70-99) Calcium Level 8.2 mg/dL (8.5-10.1) Total Bilirubin 0.4 mg/dL (0.2-1.0) Aspartate Amino Transf (AST/SGOT) 32 U/L (15-37) Alanine Aminotransferase (ALT/SGPT) 26 U/L (16-63) Alkaline Phosphatase 65 U/L (46-116) Total Protein 6.2 g/dL (6.4-8.2) Albumin 2.3 g/dL (3.4-5.0) Albumin/Globulin Ratio 0.6 (1.0-1.7) Thyroid Stimulating Hormone (TSH) 0.635 uIU/mL (0.358-3.74) Problem List Problems Medical Problems: (1) Small bowel obstruction Status: Acute Assessment/Plan Resolving constipation for small bowel obstruction with advance diet as to lerated Justicifation of Admission Dx: Justifications for Admission: Justification of Admission Dx: Yes TRACEY GARCÍA MD Mar 24, 2020 09:27
[2020-03-24] MEDS: LUBIPROSTONE 24 MCG CAPSULE PO SCH ×2 (09:46→16:54)
[2020-03-24] MEDS: VALPROIC ACID (AS SODIUM SALT) 500 MG in IV DEXTROSE 5% 50 ML IV SCH (09:46)
[2020-03-24] MEDS: ZIPRASIDONE IM 20 MG VIAL. IM SCH (09:46)
[2020-03-24] MEDS: HEPARIN for SUB-Q USE 5,000 UNIT/ML VIAL. SQ SCH ×2 (09:47→22:41)
--- NOTE | 2020-03-24 10:51 | PDOC ---
GENERAL General: Patient examined chart reviewed discussed with nursing. He is stable overnight. He has not had any bowel movement but has not had much to eat. He did tolerate his full liquid diet last night we will advance to a mechanical soft GI diet today. He has been started on analgesia which will hopefully help move things. Hoping that he will tolerate all of this and we can consider discharged back to his half-way tomorrow. Appreciate GI and surgery support. Problems: (1) Pseudo-obstruction of intestine (2) Fecal impaction of colon VITAL SIGNS Vital Signs/I&O: Vital Signs Date Time Temp Pulse Resp B/P (MAP) Pulse Ox O2 Delivery O2 Flow Rate FiO2 03/24/20 07:00 98.4 85 18 104/57 (73) 94 Room Air 98.4 I & O 03/23/20 03/23/20 03/24/20 15:00 23:00 07:00 Intake Total 500 ml 250 ml Output Total 1050 ml Balance 500 ml 250 ml -1050 ml Patient is resting comfortably in bed no acute distress this morning at baseline orientation HEENT exam is unremarkable Neck is soft and supple no adenopathy or thyromegaly noted Chest is clear to auscultation Heart S1-S2 normal regular rate and rhythm no murmurs or gallops are noted Abdomen soft nontender nondistended no masses organomegaly noted Extremity exam is unremarkable for acute abnormality ALLERGIES Allergies: Allergies Coded Allergies Type Severity Reaction Last Updated Verified No Known Drug Allergies 03/27/14 No MEDS Medications: Current Medications Medications (Trade) Dose Ordered Sig/Ric Route PRN Reason Start Time Stop Time Status Last Admin Dose Admin Lubiprostone (Amitiza) 24 mcg BIDWMEALS PO 03/23/20 17:00 03/24/20 09:46 LAB Lab: Laboratory Tests Test 03/23/20 11:26 03/23/20 17:42 03/24/20 00:20 03/24/20 06:35 Glucose (Fingerstick) 137 mg/dL (70-99) H 129 mg/dL (70-99) H 97 mg/dL (70-99) 99 mg/dL (70-99) Test 03/24/20 07:15 White Blood Count 6.5 x10^3/uL (4.0-11.0) Red Blood Count 3.72 x10^6/uL (4.30-5.70) L Hemoglobin 11.1 g/dL (13.0-17.5) L Hematocrit 32.7 % (39.0-53.0) L Mean Corpuscular Volume 88 fL (79-100) Mean Corpuscular Hemoglobin 30 pg (25-35) Mean Corpuscular Hemoglobin Concent 34 g/dL (31-37) Red Cell Distribution Width 14.7 % (11.5-14.5) H Platelet Count 222 x10^3/uL (140-400) Neutrophils (%) (Auto) 72 % (31-73) Lymphocytes (%) (Auto) 18 % (24-48) L Monocytes (%) (Auto) 9 % (0-9) Eosinophils (%) (Auto) 1 % (0-3) Basophils (%) (Auto) 0 % (0-3) Neutrophils # (Auto) 4.7 x10^3/uL (1.8-7.7) Lymphocytes # (Auto) 1.1 x10^3/uL (1.0-4.8) Monocytes # (Auto) 0.6 x10^3/uL (0.0-1.1) Eosinophils # (Auto) 0.1 x10^3/uL (0.0-0.7) Basophils # (Auto) 0.0 x10^3/uL (0.0-0.2) Sodium Level 141 mmol/L (136-145) Potassium Level 3.8 mmol/L (3.5-5.1) Chloride Level 104 mmol/L (98-107) Carbon Dioxide Level 31 mmol/L (21-32) Anion Gap 6 (6-14) Blood Urea Nitrogen 7 mg/dL (8-26) L Creatinine 0.7 mg/dL (0.7-1.3) Estimated GFR (Cockcroft-Gault) 137.8 BUN/Creatinine Ratio 10 (6-20) Glucose Level 100 mg/dL (70-99) H Calcium Level 8.2 mg/dL (8.5-10.1) L Total Bilirubin 0.4 mg/dL (0.2-1.0) Aspartate Amino Transferase (AST) 32 U/L (15-37) Alanine Aminotransferase (ALT) 26 U/L (16-63) Alkaline Phosphatase 65 U/L (46-116) Total Protein 6.2 g/dL (6.4-8.2) L Albumin 2.3 g/dL (3.4-5.0) L Albumin/Globulin Ratio 0.6 (1.0-1.7) L Thyroid Stimulating Hormone (TSH) 0.635 uIU/mL (0.358-3.74) Laboratory Tests 03/24/20 07:15 Laboratory Tests 03/24/20 07:15 ASSESSMENT & PLAN A&P Plan as noted above This note was created using [employer] [address] and may have omissions and/or errors due to the nature of real-time voice dietary services manager. Justifications for Admission Abdominal Pain Indications Is patient in severe pain?: Yes Justification for admission: Patient has severe pain that requires (parenteral analgesic-please state analgesics and route) at least every 4 hours necessitating inpatient level of care. Is NPO status required?: Yes Justification for admission: Patient may require to be NPO for greater 24hours making it medically necessary to manage patient as inpatient. Other Justification BONIFACIO HERRERA MD Mar 24, 2020 10:51
[2020-03-24 11:00] VITALS: BP 116/61
--- NOTE | 2020-03-24 12:59 | PDOC ---
G I PROGRESS NOTE Subjective Patient sleeping, not awakened. Objective Staff report no stools. No N, V. Tolerating diet. Physical Exam No PE. Review of Relevant I have reviewed the following items freddie (where applicable) has been applied. Labs Laboratory Tests Test 03/23/20 00:13 03/23/20 06:32 03/23/20 11:26 03/23/20 17:42 Glucose (Fingerstick) 101 mg/dL (70-99) 174 mg/dL (70-99) 137 mg/dL (70-99) 129 mg/dL (70-99) Test 03/24/20 00:20 03/24/20 06:35 03/24/20 07:15 03/24/20 11:54 Glucose (Fingerstick) 97 mg/dL (70-99) 99 mg/dL (70-99) 120 mg/dL (70-99) White Blood Count 6.5 x10^3/uL (4.0-11.0) Red Blood Count 3.72 x10^6/uL (4.30-5.70) Hemoglobin 11.1 g/dL (13.0-17.5) Hematocrit 32.7 % (39.0-53.0) Mean Corpuscular Volume 88 fL (79-100) Mean Corpuscular Hemoglobin 30 pg (25-35) Mean Corpuscular Hemoglobin Concent 34 g/dL (31-37) Red Cell Distribution Width 14.7 % (11.5-14.5) Platelet Count 222 x10^3/uL (140-400) Neutrophils (%) (Auto) 72 % (31-73) Lymphocytes (%) (Auto) 18 % (24-48) Monocytes (%) (Auto) 9 % (0-9) Eosinophils (%) (Auto) 1 % (0-3) Basophils (%) (Auto) 0 % (0-3) Neutrophils # (Auto) 4.7 x10^3/uL (1.8-7.7) Lymphocytes # (Auto) 1.1 x10^3/uL (1.0-4.8) Monocytes # (Auto) 0.6 x10^3/uL (0.0-1.1) Eosinophils # (Auto) 0.1 x10^3/uL (0.0-0.7) Basophils # (Auto) 0.0 x10^3/uL (0.0-0.2) Sodium Level 141 mmol/L (136-145) Potassium Level 3.8 mmol/L (3.5-5.1) Chloride Level 104 mmol/L (98-107) Carbon Dioxide Level 31 mmol/L (21-32) Anion Gap 6 (6-14) Blood Urea Nitrogen 7 mg/dL (8-26) Creatinine 0.7 mg/dL (0.7-1.3) Estimated GFR (Cockcroft-Gault) 137.8 BUN/Creatinine Ratio 10 (6-20) Glucose Level 100 mg/dL (70-99) Calcium Level 8.2 mg/dL (8.5-10.1) Total Bilirubin 0.4 mg/dL (0.2-1.0) Aspartate Amino Transf (AST/SGOT) 32 U/L (15-37) Alanine Aminotransferase (ALT/SGPT) 26 U/L (16-63) Alkaline Phosphatase 65 U/L (46-116) Total Protein 6.2 g/dL (6.4-8.2) Albumin 2.3 g/dL (3.4-5.0) Albumin/Globulin Ratio 0.6 (1.0-1.7) Thyroid Stimulating Hormone (TSH) 0.635 uIU/mL (0.358-3.74) Laboratory Tests Test 03/23/20 17:42 03/24/20 00:20 03/24/20 06:35 03/24/20 07:15 Glucose (Fingerstick) 129 mg/dL (70-99) 97 mg/dL (70-99) 99 mg/dL (70-99) White Blood Count 6.5 x10^3/uL (4.0-11.0) Red Blood Count 3.72 x10^6/uL (4.30-5.70) Hemoglobin 11.1 g/dL (13.0-17.5) Hematocrit 32.7 % (39.0-53.0) Mean Corpuscular Volume 88 fL (79-100) Mean Corpuscular Hemoglobin 30 pg (25-35) Mean Corpuscular Hemoglobin Concent 34 g/dL (31-37) Red Cell Distribution Width 14.7 % (11.5-14.5) Platelet Count 222 x10^3/uL (140-400) Neutrophils (%) (Auto) 72 % (31-73) Lymphocytes (%) (Auto) 18 % (24-48) Monocytes (%) (Auto) 9 % (0-9) Eosinophils (%) (Auto) 1 % (0-3) Basophils (%) (Auto) 0 % (0-3) Neutrophils # (Auto) 4.7 x10^3/uL (1.8-7.7) Lymphocytes # (Auto) 1.1 x10^3/uL (1.0-4.8) Monocytes # (Auto) 0.6 x10^3/uL (0.0-1.1) Eosinophils # (Auto) 0.1 x10^3/uL (0.0-0.7) Basophils # (Auto) 0.0 x10^3/uL (0.0-0.2) Sodium Level 141 mmol/L (136-145) Potassium Level 3.8 mmol/L (3.5-5.1) Chloride Level 104 mmol/L (98-107) Carbon Dioxide Level 31 mmol/L (21-32) Anion Gap 6 (6-14) Blood Urea Nitrogen 7 mg/dL (8-26) Creatinine 0.7 mg/dL (0.7-1.3) Estimated GFR (Cockcroft-Gault) 137.8 BUN/Creatinine Ratio 10 (6-20) Glucose Level 100 mg/dL (70-99) Calcium Level 8.2 mg/dL (8.5-10.1) Total Bilirubin 0.4 mg/dL (0.2-1.0) Aspartate Amino Transf (AST/SGOT) 32 U/L (15-37) Alanine Aminotransferase (ALT/SGPT) 26 U/L (16-63) Alkaline Phosphatase 65 U/L (46-116) Total Protein 6.2 g/dL (6.4-8.2) Albumin 2.3 g/dL (3.4-5.0) Albumin/Globulin Ratio 0.6 (1.0-1.7) Thyroid Stimulating Hormone (TSH) 0.635 uIU/mL (0.358-3.74) Test 03/24/20 11:54 Glucose (Fingerstick) 120 mg/dL (70-99) Vitals/I & O Vital Sign - Last 24 Hours 9/26/20 9/26/20 9/26/20 9/26/20 14:50 19:00 20:00 23:00 Temp 98.0 97.5 98.0 97.5 Pulse 78 84 91 Resp 20 18 18 B/P (MAP) 118/76 (90) 105/84 (91) 129/75 (93) Pulse Ox 96 95 97 O2 Delivery Room Air Room Air Room Air Room Air 03/24/20 03/24/20 03/24/20 03:00 07:00 11:00 Temp 98.5 98.4 97.0 98.5 98.4 97.0 Pulse 97 85 71 Resp 18 19 B/P (MAP) 134/84 (101) 104/57 (73) 116/61 (79) Pulse Ox 97 94 98 O2 Delivery Room Air Room Air Room Air Intake and Output 03/23/20 03/23/20 03/24/20 15:00 23:00 07:00 Intake Total 500 ml 250 ml Output Total 1050 ml Balance 500 ml 250 ml -1050 ml Problem List Problems Medical Problems: (1) Small bowel obstruction Status: Acute Assessment Pseudoobstruction, recurrent. Seems stable save no stooling. Plan of Care Note Will give suppository today. Continue Amitiza, etc. Justicifation of Admission Dx: Justifications for Admission: Justification of Admission Dx: Yes FRIEDA VILLASEÑOR MD Mar 24, 2020 12:59
[2020-03-24 15:00] VITALS: BP 116/73
[2020-03-24 19:00] VITALS: BP 125/75
[2020-03-24] MEDS ORDERED: ZIPRASIDONE 60 MG CAPSULE. PO SCH (21:00)
[2020-03-24] MEDS ORDERED: ZIPRASIDONE 20 MG CAPSULE PO SCH (21:00)
[2020-03-24] MEDS: DIVALPROEX DELAYED RELEASE 500 MG TABLET.DR. PO SCH (22:32)
[2020-03-24 23:00] VITALS: BP 131/75
[2020-03-25 03:00] VITALS: BP 126/78
[2020-03-25] MEDS: IV NORMAL SALINE 1000ML BAG 1,000 ML IV SCH ×2 (05:03→14:55)
[2020-03-25 07:00] VITALS: BP 115/68
[2020-03-25] MEDS: LUBIPROSTONE 24 MCG CAPSULE PO SCH ×2 (08:17→14:55)
[2020-03-25] MEDS: DIVALPROEX DELAYED RELEASE 500 MG TABLET.DR. PO SCH (08:18)
[2020-03-25] MEDS: HEPARIN for SUB-Q USE 5,000 UNIT/ML VIAL. SQ SCH (08:21)
[2020-03-25] MEDS ORDERED: ZIPRASIDONE 20 MG CAPSULE PO SCH (09:00)
--- NOTE | 2020-03-25 09:22 | PDOC ---
SURGICAL PROGRESS NOTE DATE: 03/25/20 TIME: 09:21 Subjective no pain, tolerating diet documented stool yesterday Vital Signs Vital Signs Date Time Temp Pulse Resp B/P (MAP) Pulse Ox O2 Delivery O2 Flow Rate FiO2 03/25/20 08:00 Room Air 03/25/20 07:00 98.0 80 18 115/68 (84) 96 98.0 I&O Intake and Output 03/25/20 07:00 Intake Total 960 ml Output Total 1750 ml Balance -790 ml Intake Oral 960 ml Output Urine Total 1750 ml # Voids 5 # Bowel Movements 1 General: Alert, Cooperative, No acute distress Abdomen: Soft, No tenderness Labs Laboratory Tests Test 03/23/20 11:26 03/23/20 17:42 03/24/20 00:20 03/24/20 06:35 Glucose (Fingerstick) 137 mg/dL (70-99) 129 mg/dL (70-99) 97 mg/dL (70-99) 99 mg/dL (70-99) Test 03/24/20 07:15 03/24/20 11:54 03/24/20 16:54 03/25/20 00:15 White Blood Count 6.5 x10^3/uL (4.0-11.0) Red Blood Count 3.72 x10^6/uL (4.30-5.70) Hemoglobin 11.1 g/dL (13.0-17.5) Hematocrit 32.7 % (39.0-53.0) Mean Corpuscular Volume 88 fL (79-100) Mean Corpuscular Hemoglobin 30 pg (25-35) Mean Corpuscular Hemoglobin Concent 34 g/dL (31-37) Red Cell Distribution Width 14.7 % (11.5-14.5) Platelet Count 222 x10^3/uL (140-400) Neutrophils (%) (Auto) 72 % (31-73) Lymphocytes (%) (Auto) 18 % (24-48) Monocytes (%) (Auto) 9 % (0-9) Eosinophils (%) (Auto) 1 % (0-3) Basophils (%) (Auto) 0 % (0-3) Neutrophils # (Auto) 4.7 x10^3/uL (1.8-7.7) Lymphocytes # (Auto) 1.1 x10^3/uL (1.0-4.8) Monocytes # (Auto) 0.6 x10^3/uL (0.0-1.1) Eosinophils # (Auto) 0.1 x10^3/uL (0.0-0.7) Basophils # (Auto) 0.0 x10^3/uL (0.0-0.2) Sodium Level 141 mmol/L (136-145) Potassium Level 3.8 mmol/L (3.5-5.1) Chloride Level 104 mmol/L (98-107) Carbon Dioxide Level 31 mmol/L (21-32) Anion Gap 6 (6-14) Blood Urea Nitrogen 7 mg/dL (8-26) Creatinine 0.7 mg/dL (0.7-1.3) Estimated GFR (Cockcroft-Gault) 137.8 BUN/Creatinine Ratio 10 (6-20) Glucose Level 100 mg/dL (70-99) Calcium Level 8.2 mg/dL (8.5-10.1) Total Bilirubin 0.4 mg/dL (0.2-1.0) Aspartate Amino Transf (AST/SGOT) 32 U/L (15-37) Alanine Aminotransferase (ALT/SGPT) 26 U/L (16-63) Alkaline Phosphatase 65 U/L (46-116) Total Protein 6.2 g/dL (6.4-8.2) Albumin 2.3 g/dL (3.4-5.0) Albumin/Globulin Ratio 0.6 (1.0-1.7) Thyroid Stimulating Hormone (TSH) 0.635 uIU/mL (0.358-3.74) Glucose (Fingerstick) 120 mg/dL (70-99) 77 mg/dL (70-99) 105 mg/dL (70-99) Test 03/25/20 04:23 03/25/20 06:33 Glucose (Fingerstick) 89 mg/dL (70-99) 87 mg/dL (70-99) Laboratory Tests Test 03/24/20 11:54 03/24/20 16:54 03/25/20 00:15 03/25/20 04:23 Glucose (Fingerstick) 120 mg/dL (70-99) 77 mg/dL (70-99) 105 mg/dL (70-99) 89 mg/dL (70-99) Test 03/25/20 06:33 Glucose (Fingerstick) 87 mg/dL (70-99) Problem List Problems Medical Problems: (1) Small bowel obstruction Status: Acute Assessment/Plan stable seems at baseline Justicifation of Admission Dx: Justifications for Admission: Justification of Admission Dx: Yes FRANC ALVAREZ APRN Mar 25, 2020 09:22
--- NOTE | 2020-03-25 09:51 | NUR ---
SW following. Discussed with RN, pt on GI soft diet, had a BM over the weekend. Pt doing much better, possible discharge home today. JAMIL notified Ramandeep at [facility] possible discharge - [facility] will collect pt upon discharge. Awaiting orders. SW will continue to follow.
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
[2020-03-25] MEDS ORDERED: SENN1TAB62 PO (10:45)
[2020-03-25] MEDS ORDERED: POLY17PO28 PO (10:48)
[2020-03-25 11:00] VITALS: BP 112/68
--- NOTE | 2020-03-25 12:04 | SNU/HH DC ---
DISCHARGE ORDERS DISCHARGE INFORMATION: FINAL DIAGNOSIS Problems Medical Problems: (1) Small bowel obstruction Status: Acute CONDITION ON DISCHARGE: Stable CODE STATUS: Code Status: Full SENIOR CARE: SNF STAY <30 DAYS: No HOSPICE: HOSPICE: No HOSPICE EVAL & TREAT: No LTAC: ADMIT TO LTAC: No POST DISCHARGE ORDERS: ACTIVITY ORDERS: Resume previous activity WEIGHT BEARING STATUS: No restrictions DIET AFTER DISCHARGE: Cardiac WOUND/INCISION CARE: No wound care needed CHECKS AFTER DISCHARGE: CHECKS AFTER DISCHARGE: Check blood sugar, ac/hs TREATMENT/EQUIPMENT ORDERS: ADAPTIVE EQUIPMENT NEEDED: None DISCHARGE MEDICATIONS: Home Meds Active Scripts [Bisacodyl] 10 MG SUPP.RECT No Conflict Check, 10 MG TN PRN DAILY PRN for CONSTIPATION, #12 SUPP.RECT Prov:FAHAD TINAJERO MD 02/12/15 Reported Medications Polyethylene Glycol 3350 (POLYETHYLENE GLYCOL 3350) 17 Gm Powd.pack, 17 GM PO BID for constipation, PKT 03/25/20 Sennosides/Docusate Sodium (SENNA PLUS TABLET) 1 Each Tablet, 1 TAB PO BID for constipation for 20 Days, #40 TAB 0 Refills 03/25/20 Ziprasidone Hcl (GEODON) 40 Mg Capsule, 2 CAP PO QHS for psychosis/schizophrenia, #60 CAP 1 Refill 03/20/20 Ziprasidone Hcl (GEODON) 20 Mg Capsule, 2 CAP PO QAM for psychosis and agitation, #60 CAP 2 Refills 03/20/20 Gabapentin (GABAPENTIN) 600 Mg Tablet, 600 MG PO TID for NEUROGENIC PAIN, TAB 03/20/20 Benztropine Mesylate (BENZTROPINE MESYLATE) 0.5 Mg Tablet, 0.5 MG PO HS for EPS, TAB 03/20/20 Quetiapine Fumarate (SEROQUEL) 300 Mg Tablet, 1 TAB PO QHS for psychosis, #30 TAB 1 Refill 02/23/20 Loperamide Hcl (LOPERAMIDE) 2 Mg Tablet, 1 TAB PO Q4HRS for loose stool for 30 Days, #180 TAB 0 Refills 02/22/20 Colchicine (Colchicine) 0.6 Mg Tablet, 2 TAB PO PRN DAILY PRN for unknown for 30 Days, TAB 0 Refills 02/22/20 Ferrous Gluconate (FERROUS GLUCONATE) 240 Mg Tablet, 324 MG PO DAILYWBKFT for u nknown, TAB 02/22/20 Famotidine (FAMOTIDINE) 20 Mg Tablet, 20 MG PO BID for GERD, TAB 02/22/20 Guaifenesin (TUSSIN) 100 Mg/5 Ml Liquid, 200 MG PO PRN Q4HRS PRN for COUGH, LIQUID 08/28/19 Acetaminophen (ACETAMINOPHEN) 500 Mg Tablet, 1000 MG PO PRN Q6HRS PRN for PAIN, TAB 08/28/19 Melatonin (MELATONIN) 3 Mg Tablet, 1 TAB PO QHS, #30 TAB 12/02/16 Multivitamin (TAB-A-MARY KAY) 1 Each Tablet, 1 EACH PO DAILY 03/27/14 Simvastatin (SIMVASTATIN) 40 Mg Tablet, 40 MG PO DAILY for FOR CHOLESTEROL, #30 TAB 0 Refills 03/27/14 Divalproex Sodium (DEPAKOTE) 500 Mg Tablet.dr, 1 TAB PO BID, #60 TAB 1 Refill 03/27/14 Aspirin (ASPIR-LOW) 81 Mg Tablet.dr, 81 MG PO DAILY 03/27/14 Discontinued Reported Medications Polyethylene Glycol 3350 (MIRALAX) 17 Gm Powd.pack, 1 PACKET PO BID PRN for CONSTIPATION for 2 Days, #4 PACKET 0 Refills dissolve in water 02/22/20 TERA BOSTON III DO Mar 25, 2020 12:04
--- NOTE | 2020-03-25 12:52 | PDOC ---
[facility] PROGRESS NOTE Date of Service DOS: DATE: 03/25/20 TIME: 12:51 Chief Complaint Chief Complaint Abdominal distention - small bowel obstruction Intellectual disability History of Present Illness History of Present Illness 03/25/2020 Patient seen and examined Patient is at baseline Patient is able to urinate and have bowel movement Patient has minimal communication DW RN DW bilingual patient support caseworker 64 year old male who was brought here from nursing home due to abdominal distention suspect obstruction. Per report, staff said patient had diarrhea on Wednesday, and then today his belly become distended so they sent him here for evaluation. Patient could not provide any information. Patient seen and examined this morning who is unable to provide much detail of his symptoms. Patient has been admitted in the past several times for the same reason. NG tube was placed in the ED yesterday. However, NG tube and IV was pulled out. 03/21/2020 No acute events overnight. Patient has pulled out his NG tube x2. Abdominal distention has improved after stooling. Patient is voicing that he is hungry. No nausea or vomiting. Patient's chart, labs, images were reviewed and discussed with RN 03/22/2020 No major events overnight. Patient has no more stooling at this time. No nausea vomiting reported. Patient continues to be minimally verbal with restricted response to questioning about his symptoms. Patient's chart, labs, images were reviewed and discussed with RN Vitals/I&O Vitals/I&O: Vital Signs Date Time Temp Pulse Resp B/P (MAP) Pulse Ox O2 Delivery O2 Flow Rate FiO2 03/25/20 11:00 98.0 91 18 112/68 (83) 97 Room Air 98.0 I & O 03/24/20 03/24/20 03/25/20 15:00 23:00 07:00 Intake Total 720 ml 240 ml Output Total 550 ml 200 ml 1000 ml Balance 170 ml 40 ml -1000 ml Physical Exam Physical Exam: GEN: No apparent distress. Alert and oriented HEENT: Normal cephalic, atraumatic, external auditory canals are patent NECK: Supple, no JVD, no thyromegaly was noted LUNGS: Bilateral clear HEART: RRR, S1, S2 present. Peripheral pulses intact, no obvious murmurs noted ABDOMEN: Soft, nontender. Positive bowel sounds, no organomegaly, normal bowel sounds EXTREMITIES: Without clubbing, cyanosis, or edema. Pedal pulses intact. Negative Homans sign General: Alert, Cooperative, No acute distress Heart: Normal S1, Normal S2, Other (tachy) Lungs: Clear Abdomen: Soft, No tenderness Extremities: No clubbing, No cyanosis Skin: No rashes, No breakdown Labs Labs: Laboratory Tests Test 03/24/20 16:54 03/25/20 00:15 03/25/20 04:23 03/25/20 06:33 Glucose (Fingerstick) 77 mg/dL (70-99) 105 mg/dL (70-99) 89 mg/dL (70-99) 87 mg/dL (70-99) Test 03/25/20 11:52 Glucose (Fingerstick) 101 mg/dL (70-99) Review of Systems Review of Systems: No dizziness Minimal communication ability No vomiting Assessment and Plan Assessmemt and Plan Assessment: Small bowel obstruction Intellectual disability Plan: Discharge Home meds DVT prophylaxis Full code PT/OT Comment Review of Relevant I have reviewed the following items freddie (where applicable) has been applied. Medications: Current Medications Medications (Trade) Dose Ordered Sig/Ric Route PRN Reason Start Time Stop Time Status Last Admin Dose Admin Divalproex Sodium (Depakote) 500 mg BID PO 03/24/20 21:00 03/25/20 08:18 Ziprasidone (Geodon) 40 mg DAILY PO 03/25/20 09:00 03/25/20 08:17 Ziprasidone (Geodon) 20 mg QHS PO 03/24/20 21:00 03/24/20 22:32 Ziprasidone (Geodon) 60 mg QHS PO 03/24/20 21:00 03/24/20 22:34 Justifications for Admission Abdominal Pain Indications Is patient in severe pain?: Yes Justification for admission: Patient has severe pain that requires (parenteral analgesic-please state analgesics and route) at least every 4 hours necessitating inpatient level of care. Is NPO status required?: Yes Justification for admission: Patient may require to be NPO for greater 24hours making it medically necessary to manage patient as inpatient. Other Justification TERA BOSTON III DO Mar 25, 2020 12:52
--- NOTE | 2020-03-25 15:14 | NUR ---
Discharge Note: DENITA HANKINS Discharge instructions and discharge home medications reviewed with Other facility and a copy given. All questions have been answered and understanding verbalized. Report given to DONA Sabillon at [facility]. The following instructions and handouts were given: information about activity, diet, medications, tests, follow up appointments, etc. Discontinued lines and drains: IV line in left forearm removed, catheter tip intact. Patient discharged to [facility] with DONA Sabillon, wheelchair used for mobility to discharge vehicle.
--- NOTE | 2020-03-25 18:07 | DS ---
DATE OF DISCHARGE: 03/25/2020 ADMISSION DIAGNOSIS: Small-bowel obstruction. DISCHARGE DIAGNOSES: Resolving small-bowel obstruction, history of seizures and cognitive impairment. HOSPITAL COURSE: The patient is a pleasant 64-year-old male well known to our service. [facility] He has a cognitive impairment. Basically, he presented with a small-bowel obstruction. We admitted him, consulted GI, closely observed him today, I saw and examined him, he was doing better. He states he is eating, wants to go back. I discussed the case with casework supervisor and nursing. We are going to [facility] him back to his jail. DISPOSITION: half-way. ACTIVITY: As tolerated. DIET: Soft mechanical. MEDICATIONS: Please see the MRAD. I did continue all of his home medications including his Keppra 500 p.o. b.i.d. for his seizure disorder. TERA BOSTON DO DR: ADOLPH/amol JOB#: [id number] / [id number]
== END 2020-03-25 15:14 | disposition home or self-care (01) | DRG 388 ==
LOC: ER 13:41 → ED HOLD 17:47 → 4 NORTH 20:22
PROVIDERS: ADMIT Internal Medicine; ATTEND Internal Medicine
DX: K56.609 Unspecified intestinal obstruction, unspecified as to partial versus complete obstruction (principal); N17.0 Acute kidney failure with tubular necrosis; K56.7 Ileus, unspecified; E11.40 Type 2 diabetes mellitus with diabetic neuropathy, unspecified; E78.00 Pure hypercholesterolemia, unspecified; E78.5 Hyperlipidemia, unspecified; F03.90 Unspecified dementia, unspecified severity, without behavioral disturbance, psychotic disturbance, mood disturbance, and anxiety; F20.9 Schizophrenia, unspecified; F79 Unspecified intellectual disabilities; I10 Essential (primary) hypertension; K56.41 Fecal impaction; N20.0 Calculus of kidney; N40.0 Benign prostatic hyperplasia without lower urinary tract symptoms; G51.0 Bell's palsy; K21.9 Gastro-esophageal reflux disease without esophagitis; G40.909 Epilepsy, unspecified, not intractable, without status epilepticus; Z20.828 Contact with and (suspected) exposure to other viral communicable diseases; Z79.899 Other long term (current) drug therapy
CPT/HCPCS: 36415; 74018; 74022; 74176; 80048; 80053; 82962; 83690; 83735; 84100; 84443; 85007; 85025; 85610; 85730; 96374; 99285; J1644; J2060; J2212; J3486; J3490; J7030; J7060; G0378; U0003-CS

== ENCOUNTER 2020-09-04 10:45 | Emergency (ER) | payer MEDICARE, MEDICAID ==
[~2020-09-04] VITALS: Ht 175.3 cm; Wt 70.0 kg
[~2020-09-04 10:45] MED LIST changes: +AMOX1TAB10 PO; +AMOX1TAB11 PO; +BENZ0.5T32 PO; -COLC0.6T42 PO; +COLC0.6T45 PO; +DIPH25CA20 PO; +DOCU50CA9 PO; +GABA300C18 PO; +INSU100V35 SQ; +IPRA4AER INH; +LACT1CAP19 PO; -POLY17PO28 PO; +POLY17PO52 PO; +PRED20TA PO; +PSEU-57 PO; -PSEU30TA24 PO; +QUET100T4 PO; +SENN1TAB62 PO; +ZIPR20CA2 PO; +ZIPR60CA3 PO; +[UNRECOGNIZED DRUG - CODE] PO; +[UNRECOGNIZED DRUG - CODE] PO
[2020-09-04] MEDS ORDERED: IV NORMAL SALINE 1000ML BAG 1,000 ML IV ONE (12:45)
[2020-09-04] MEDS ORDERED: ONDANSETRON PF 4 MG/2 ML VIAL. IVP ONE (12:45)
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
[2020-09-04 13:19] LABS: BARBITURATES NEG (NEG); BENZODIAZEPINES NEG (NEG); CANNABINOIDS NEG (NEG); COCAINE NEG (NEG); METHADONE NEG (NEG); OPIATES NEG (NEG); PHENCYCLIDINE NEG (NEG)
[2020-09-04 13:20] LABS: AMPHETAMINE/METHAMPHETAMINE NEG (NEG)
[2020-09-04 13:38] LABS: BASO % 1 % (0-3); EOS % 0 % (0-3); HEMATOCRIT 31.5 % (39.0-53.0); HEMOGLOBIN 10.2 g/dL (13.0-17.5); LYMPH # 0.6 x10^3/uL (1.0-4.8); LYMPH % 10 % (24-48); MEAN CORPUSCULAR HEMOGLOBIN 30 pg (25-35); MEAN CORPUSCULAR HGB CONC 32 g/dL (31-37); MEAN CORPUSCULAR VOLUME 93 fL (79-100); MONO # 1.4 x10^3/uL (0.0-1.1); MONO % 23 % (0-9); NEUT % 67 % (31-73); PLATELET COUNT 174 x10^3/uL (140-400)
[2020-09-04 13:41] LABS: BILIRUBIN,URINE SMALL (NEG); CLARITY,URINE CLEAR; COLOR,URINE AMBER; NITRITE,URINE NEGATIVE (NEG); PH,URINE 5.5 (<5.0-8.0); PROTEIN,URINE 30 mg/dL (NEG-TRACE)
[2020-09-04 13:43] LABS: BACTERIA,URINE 0 /HPF (0-FEW); WBC,URINE OCC /HPF (0-4)
[2020-09-04 13:44] LABS: AMORPHOUS SEDIMENT,UR PRESENT /HPF
[2020-09-04 14:05] LABS: CALCIUM 8.2 mg/dL (8.5-10.1); CREATININE 0.8 mg/dL (0.7-1.3); GFR 117.8; POTASSIUM 3.2 mmol/L (3.5-5.1)
[2020-09-04 14:07] LABS: ALBUMIN 2.4 g/dL (3.4-5.0); ALBUMIN/GLOBULIN RATIO 0.6 (1.0-1.7); TOTAL BILIRUBIN 0.5 mg/dL (0.2-1.0); TOTAL PROTEIN 6.2 g/dL (6.4-8.2)
[2020-09-04] MEDS ORDERED: IOHEXOL 300 MG/ML 100ML VIAL. IV ONE (14:15)
[2020-09-04] MEDS ORDERED: CONTRAST GIVEN. MC PRN (14:15)
--- NOTE | 2020-09-04 14:39 | RAD ---
CT of the abdomen and pelvis with contrast 09/04/2020 INDICATION: Abdominal distention COMPARISON STUDY: Abdominal CT April 03, 2020 TECHNIQUE: Multidetector CT imaging of the abdomen and pelvis was performed following the administrat ion of IV contrast. FINDINGS: Atelectasis is noted in the bilateral lung bases. Small bilateral pleural effusions are also present. There is distention of the colon.. Dense fecal material appears to be present in the rectum. Findings may represent a fecal impaction. Some dilated loops of small bowel are seen in the anterior abdomen with some sacralization of small bowel contents. Findings likely reflect decreased transit time. No g ross pneumoperitoneum is identified. No definitive pneumatosis is seen. No significant portal venous gas portal venous gas is seen. Similar somewhat whorled appearance of the mesentery is again seen. Si gnificance uncertain. Liver, spleen, and gallbladder are grossly unremarkable. Visualized portions of the pancreas are unremarkable. Bilateral kidneys are grossly unremarkable. No evidence of acute osse ous abnormality is identified. IMPRESSION: 1.Prominent stool in the rectum. Dilatation of the more proximal large bowel is seen. Findings may re flect fecal impaction. Some dilatation of small bowel loops with visualization of contents is seen as well which can represent decreased transit. There has been a waxing and waning appearance of small l arge bowel dilatation noted throughout prior exams. 2. No overt small bowel obstruction is identified. 3. Small bilateral pleural effusions CT DOSING PQRS STATEMENT: One or more of the following individualized dose reduction techniques were utilized for this examinat ion: 1. Automated exposure control 2. Adjustment of the mA and/or kV according to patient size 3. Use of iterative reconstruction technique Electronically signed by: Oliver Pina MD (09/04/2020 2:36 PM) [id number]
[2020-09-04 14:42] LABS: % BANDS 7 % (0-9); % LYMPHS 13 % (24-48); % MONOS 20 % (0-10); % SEGS 60 % (35-66)
[2020-09-04 14:43] LABS: PLT ESTIMATE ADEQUATE (ADEQUATE)
[2020-09-04] MEDS ORDERED: POTASSIUM BICARB 10 MEQ EFFERVESCENT TABLET. PO ONE (16:30)
[2020-09-04 17:00] VITALS: BP 111/68
== END 2020-09-04 17:05 | disposition home or self-care (01) ==
LOC: ER 10:45
DX: K59.00 Constipation, unspecified (principal); R14.0 Abdominal distension (gaseous); E87.6 Hypokalemia; F03.90 Unspecified dementia, unspecified severity, without behavioral disturbance, psychotic disturbance, mood disturbance, and anxiety; E78.00 Pure hypercholesterolemia, unspecified; I10 Essential (primary) hypertension; F20.9 Schizophrenia, unspecified; G62.9 Polyneuropathy, unspecified; Z98.890 Other specified postprocedural states; Z79.899 Other long term (current) drug therapy
CPT/HCPCS: 36415; 74177; 80053; 80307; 81001; 83605; 83690; 84145; 85007; 85025; 87040; 96361; 96374; 99285; G0480; J2405; J7030; Q9967